=== PATIENT | female | born 1945 | race Caucasian/White ===

== ENCOUNTER 2018-07-28 14:51 | Emergency (ER) | payer MEDICARE, OTHER, SELFPAY ==
[2018-07-28] VITALS (10 sets, daily range): BP systolic 136–173; BP diastolic 57–84; PULSE 67–69; RESP 18; TEMP 36.7; O2SAT 94–100
--- NOTE | 2018-07-28 15:03 | NUR.NOTE ---
Nursing Note: EKG given to MD Mosquera
--- NOTE | 2018-07-28 15:11 | ED.GENADUL_ITS ---
Discharge Plan Disposition Patient Disposition: HOME Condition: Improving Discharge Details Chief Complaint: Chest Pain Clinical Impression: Gastritis Primary Care Provider: Palma Altman ED Provider: Riaz Mosquera Home Meds and New Rx's Prescriptions: New famotidine 20 mg tablet 20 mg PO BID 14 Days Qty: 28 RF: 0 Continued acetaminophen 500 MG tablet 3 tab PO PRN RF: 0 cholecalciferol (vitamin D3) [Vitamin D3] 400 UNIT capsule 1 tab PO DAILY RF: 0 acetaminophen [Arthritis Pain Relief (acetam)] 650 MG tablet 2 tab PO BID RF: 0 famotidine 20 MG tablet 20 mg PO BID Qty: 180 RF: 3 Discharge Instructions Instructions: Gastritis (ED) Additional Instructions: Please take famotidine 20 mg twice daily for the next 5 days. Then may resume once daily at bedtime. [place] diet. Return if you develop chest pain, difficulty breathing, or any other acute concerns. Please follow-up with Dr. Altman for recheck if not improving Medical Decision Making 73-year-old female states that she had the abrupt onset 2 to 3 hours ago of substernal burning discomfort similar to previous. She took 2 Pepcid's and by the time of presentation the ER has had complete resolution of her symptoms. She denies associated shortness of breath or vomiting. She has recently been well. No clear inciting foods but occurred after eating. She is slightly hypertensive but afebrile and with normal pulse and oxygenation. She does not demonstrate any significant abnormalities on exam. Her EKG is unchanged from previous. Screening laboratories obtained and are reassuring. Negative troponin. Her LFTs are unremarkable. Patient remains improved. I will have her continue Pepcid. This does seem most consistent with gastritis. She is stable for discharge Medical Records Medical records reviewed: Yes I reviewed the patient's medical records. Lab Data Lab results reviewed: Yes I reviewed the patient's lab results. Laboratory Results - last 24 hr 07/28/18 07/28/18 15:36 15:36 WBC 7.79 RBC 4.59 Hgb 14.3 Hct 42.1 MCV 91.7 MCH 31.2 MCHC 34.0 RDW 13.7 Plt Count 293 MPV 9.0 Immature Gran % 0.3 Neutrophils % 53.8 Lymphocytes % 38.0 Monocytes % 4.7 Eosinophils % 3.1 Basophils % 0.1 Absolute Neutrophils 4.19 Absolute Lymphocytes 2.96 Absolute Monocytes 0.37 Absolute Eosinophils 0.24 Absolute Basophils 0.01 Sodium 139 Potassium 3.7 Chloride 104 Carbon Dioxide 22.5 Anion Gap 12.5 H BUN 19 H Creatinine 0.80 Estimated GFR/1.73 m2 >= 60.00 Glucose 177 H Calcium 9.4 Total Bilirubin 0.6 AST 67 H ALT 50 Alkaline Phosphatase 77 Troponin I < 0.02 Total Protein 6.7 Albumin 3.5 ECG Data Attestation: I personally reviewed and interpreted this ECG (s) as follows: Interpretation: Normal sinus rhythm with a rate of 72, QRS is narrow, there is ST segment flattening present in the inferior leads that is similar to previous of May 03, 2007 HPI General Mode of arrival: ambulatory . Date/Time Provider Initiated Documentation: 07/28/18 15:00 . Limitations to Documentation: no limitations . Information obtained by: patient and family . History of Present Illness 73 year old F presents to the emergency department with the chief complaint of Epigastric burning pain, similar to previous, resolved , described as moderate and similar to prior episodes, and is localized to the abdomen. Patient reports radiation to back. Patient started experiencing this hour(s) and it has been now resolved. No relieving factors improve symptom(s), No exacerbating factors reported . Patient notes no other symptoms.. Patient did receive the following treatments prior to arrival, other (famotidine) Related Data Home Medications Medication Instructions Recorded Confirmed acetaminophen 3 tab PO PRN 09/12/12 05/02/17 cholecalciferol (vitamin D3) 1 tab PO DAILY 09/12/12 05/02/17 [Vitamin D3] acetaminophen [Arthritis Pain 2 tab PO BID 05/04/17 Relief (acetam)] famotidine 20 mg PO BID #180 tab 05/04/17 famotidine 20 mg PO BID 14 Days #28 tab 07/28/18 Previous Rx's Medication Instructions Recorded famotidine 20 mg PO BID #180 tab 05/04/17 famotidine 20 mg PO BID 14 Days #28 tab 07/28/18 Allergies Allergy/AdvReac Type Severity Reaction Status Date / Time aspirin AdvReac Intermediate Nausea Unverified 05/04/17 13:14 General Stated Complaint: Chest Pain DONNELL: 3 Review of Systems Review of Systems 6 systems reviewed and otherwise negative. PFSH Social History Smoking/Tobacco Use Status: Never Alcohol Intake: never Drug use: Never Substance use type: does not use Do you feel safe in your relationship?: Yes Exam Narrative Exam Narrative: GEN: awake, alert, oriented 3. Pleasant, well groomed, i nteractive. HEAD: Normocephalic, atraumatic ENT: Mucous membranes moist, oropharynx unremarkable, External ear exam unremarkable EYES: PERRL, EOMI NECK: Full ROM, no ZONIA, no menigismus CHEST/RESP: Nontender, clear to auscultation bilateral, no wheeze/rhonchi/rales CARDIOVASCULAR: RRR, no murmur, rub maxi. 2+ Rad pulse bilateral ABDOMEN: Soft, nontender, no mass. +Bowel sounds EXT: Full ROM, no edema, no rash Neuro: Grossly normal neurologic exam, conversant, interactive. Psych: Speech fluent, thoughts congruent, affect normal Course Vital Signs Temperature 36.7 C 07/28/18 15:03 Pulse 67 07/28/18 15:03 Respiratory Rate 18 07/28/18 15:03 Blood Pressure 173/84 H 07/28/18 15:03 Pulse Oximetry 100 07/28/18 15:03 Temperature 36.7 C 07/28/18 15:03 Temperature Source Temporal Artery Scan 07/28/18 15:03 Pulse 67 07/28/18 15:03 Respiratory Rate 18 07/28/18 15:03 Respiratory Effort Non-Labored 07/28/18 15:06 Respiratory Depth Normal 07/28/18 15:06 Respiratory Pattern Normal 07/28/18 15:06 Blood Pressure 173/84 H 07/28/18 15:03 Blood Pressure Position Supine 07/28/18 15:03 Pulse Oximetry 100 07/28/18 15:03 Oxygen Delivery Method Room Air 07/28/18 15:03 Oxygen Flow Rate 0 07/28/18 15:03
[2018-07-28 15:48] LABS: Abs Immature Grans 0.02 k/cumm (0.0-0.09); Absolute Basophil Count 0.01 k/cumm (0.0-0.2); Absolute Eosinophil Count 0.24 k/cumm (0.0-0.7); Absolute Lymphocyte Count 2.96 k/cumm (1.2-3.4); Absolute Monocyte Count 0.37 k/cumm (0.11-0.7); Absolute Neutrophil Count 4.19 k/cumm (1.2-6.7); Basophils % 0.1; Eosinophils % 3.1; HCT 42.1 % (36.0-46.0); HGB 14.3 g/dL (12.0-15.5); Immature Grans % 0.3; Mean Corpuscular Hemoglobin 31.2 pg (27.0-33.0); Mean Corpuscular Volume 91.7 fL (80-95); Monocytes % 4.7; Neutrophils % 53.8; Platelet Count 293 x1000/uL (130-400); RBC 4.59 m/cumm (4.00-5.20); RBC Distribution Width 13.7 % (11.7-14.6); White Blood Cell Count 7.79 k/cumm (4.4-10.8)
[2018-07-28 16:17] LABS: ALT 50 U/L (12-78); AST 67 U/L (15-37); Albumin 3.5 g/dL (3.4-5.0); Alkaline Phosphatase 77 U/L (46-116); Anion Gap 12.5 mmol/L (3-11); BUN 19 mg/dL (7-18); Bilirubin, Total 0.6 mg/dL (0.2-1.0); CO2 22.5 mmol/L (21.0-32.0); Calcium 9.4 mg/dL (8.5-10.1); Chloride 104 mmol/L (98-107); Glucose 177 mg/dL (70-100); Potassium 3.7 mmol/L (3.5-5.1); Sodium 139 mmol/L (136-145); Total Protein 6.7 g/dL (6.4-8.2)
[2018-07-28 16:18] LABS: Troponin I < 0.02 ng/mL (0.00-0.06)
== END 2018-07-28 16:30 | disposition home or self-care (01) ==
PROVIDERS: Emergency Provider Emergency Medicine; PCP Family Medicine
DX: K29.00 Acute gastritis without bleeding (principal); I10 Essential (primary) hypertension
CPT/HCPCS: 36415; 80053; 93005; 99284; 84484; 85025; 93010

== ENCOUNTER 2018-12-08 19:47 | Emergency (ER) | payer MEDICARE, OTHER, SELFPAY ==
[2018-12-08 19:50] VITALS: BP 158/106; PULSE 86; RESP 25; TEMP 37.1; O2SAT 96
[2018-12-08 19:53] VITALS: RESP 26
--- NOTE | 2018-12-08 19:58 | ED.GENADUL_ITS ---
Discharge Plan Disposition Patient Disposition: HOME Condition: Good Discharge Details Chief Complaint: Chest Pain Clinical Impression: Acid reflux, Chest pain Primary Care Provider: April Savage ED Provider: French Velázquez Home Meds and New Rx's Prescriptions: New sucralfate [Carafate] 1 gram tablet 1 gm PO QACHS Qty: 90 RF: 0 No Action famotidine 20 mg tablet 20 mg PO QHS Qty: 30 RF: 6 nystatin 100,000 unit/gram powder 1 applic TP TID Qty: 60 RF: 0 acetaminophen [Arthritis Pain Relief (acetam)] 650 MG tablet 2 tab PO BID RF: 0 nystatin 100,000 unit/gram cream 1 applic TP TID Qty: 30 RF: 0 Discharge Instructions Instructions: Chest Pain (ED), Gastroesophageal Reflux Disease (ED) Additional Instructions: At this time your symptoms seem to be related to her reflux. However there is always a concern that this may be secondary to your heart. Although this is unlikely after initial lab test, you are leaving prior to her recommended repeat testing. If at any point you feel return of your symptoms or you would like reassessment, please return immediately for the labs and reassessment. Please avoid any spicy foods, tomato-based products, or mint-based products. Please take the Carafate in addition to your other home medications. If you notice any worsening of your symptoms, or any new symptoms such as vomiting, diarrhea, fever, chills, shortness of breath, chest pain, numbness, weakness, or fainting , please return immediately to the emergency department for reevaluation. Please follow up with your primary care provider as soon as possible for reassessment and reevaluation. As always, it was a pleasure participating in your medical care today. Referrals: April Savage, TAKE OUT WAITER/WAITRESS [Primary Care Provider] - Medical Decision Making This is a 73-year-old female with past medical history of arthritis and past history of notable reflux and stomach ulcer in the past, who presents today for evaluation of right upper quadrant epigastric pain described as a burning sensation. It occurred after he eating steak and vegetable dinner. She states that it is identical to the previous episodes of gastric pain that she has had in the past. She denies a history of cardiac disease. She is a non- smoker. EKG shows no abnormalities. She denies any history of concerning red flags for dissection, risk factors for PE. Physical exam is notably unremarkable. EKG benign. This time will treat for reflux, however due to her age evaluate for potential unlikely cardiac etiology. 9 PM On reassessment patient is 100% asymptomatic at this time. She feels much better after the reflux medication she received. She states that her pain is completely gone which is prior for the course for her normal reflux. However because of her age and risk factors I did discuss with her serial troponins as this is my recommendation for continued testing, including potential additional imaging testing. This time she states that she does not want anything else. She does not want to repeat troponins, imaging or medication. She states that she would like to go home. We had a long discussion regarding the risks and benefits of this, including the ability to miss a life-threatening etiology and potential and permanent disability. Patient understands this. Although her testing is not complete, she certainly does seem to be clinically consistent with reflux and stomach ulcer rather than a cardiac etiology. Respecting her wishes the patient will be discharged home. We will add Carafate to her daily medication. I have extensively reviewed the treatment plan and discharge instructions with the patient and their family. I have addressed all patient concerns at this time. The patient and family was made aware of what symptoms to monitor for that would warrant a return to the emergency department. Discussed the plan with the patient and family, they demonstrate verbal understanding and agreement with our assessment and plan at this time. EKG 19: 54 Rate 81, intervals normal, no significant ST elevations or depressions, there is an inverted T wave in V1. Small Q wave in lead III. No evidence of STEMI. EKG from 07/28/2018 demonstrates identical findings, no other significant abnormalities or acute changes. FINDINGS: Lungs: Lungs are adequately inflated and symmetric. No focal consolidation or pulmonary edema. Pleural space: No pleural effusion. No pneumothorax. Heart/Mediastinum: Cardiomediastinal contours within normal limits. Vasculature: Vascular calcifications of the aortic arch with very mild tortuosity of the thoracic aorta. Bones/joints: Mild multilevel thoracic spondylosis. No acute osseous findings. Soft tissues: No focal soft tissue abnormailty. IMPRESSION: No acute cardiopulmonary finding. Thank you for allowing us to participate in the care of your patient. Dictated and Authenticated by: William Moore MD 12/08/2018 8:29 PM Eastern Time ([place] & [place]) HPI General Date/Time Provider Initiated Documentation: 12/08/18 19:50 . HPI Narrative: This is a 73-year-old female with a past medical history of notable stomach ulcer and previous gastric pain, as well as arthritis no other medical problems who presents today for evaluation of right upper quadrant abdominal pain/epigastric pain. Patient states that began not long after dinner. They had steak and vegetables for dinner. She denies eating anything spicy. She states that it is a burning sensation that goes from the right slightly the right shoulder. She denies any chest heaviness, chest tightness, shortness of breath. She states that this burning sensation is classic for her and like her previous episodes of reflux in the past. She was unable to take any antacids or reflux medications at home as this classic other complaints. Ally makes her symptoms worse. She denies any history of [place] or previous cardiac issue. She has no other complaints at this time. She denies any tobacco abuse, family history significant cardiac disease, or other complaints. She denies any tear ing or ripping sensation in her chest. She denies any history of PE, dissection or aneurysm. Related Data Home Medications Medication Instructions Recorded Confirmed acetaminophen [Arthritis Pain 2 tab PO BID 05/04/17 12/08/18 Relief (acetam)] famotidine 20 mg tablet 20 mg PO QHS #30 tab 10/25/18 12/08/18 nystatin 100,000 unit/gram topical 1 applic TP TID #60 gm 10/25/18 12/08/18 powder nystatin 100,000 unit/gram topical 1 applic TP TID #30 gm 11/08/18 12/08/18 cream sucralfate [Carafate] 1 gm PO QACHS #90 tab 12/08/18 Previous Rx's Medication Instructions Recorded famotidine 20 mg tablet 20 mg PO QHS #30 tab 10/25/18 nystatin 100,000 unit/gram topical 1 applic TP TID #60 gm 10/25/18 powder nystatin 100,000 unit/gram topical 1 applic TP TID #30 gm 11/08/18 cream sucralfate [Carafate] 1 gm PO QACHS #90 tab 12/08/18 Allergies Allergy/AdvReac Type Severity Reaction Status Date / Time aspirin AdvReac Intermediate Nausea Unverified 10/25/18 15:23 General Stated Complaint: Chest Pain DONNELL: 2 Review of Systems All systems reviewed & are unremarkable except as noted in HPI and below [facility] Social History Smoking/Tobacco Use Status: Never Alcohol Intake: never Drug use: Never Substance use type: does not use Do you feel safe in your relationship?: Yes Exam Narrative Exam Narrative: 1.Const: Well-nourished, Well-developed, appearing stated age 2.Eyes: PERRL, no conjunctival injection, and symmetrical lids. 3.ENT: Atraumatic external nose and ears. Moist MM. Neck: Symmetric, trachea midline, No thyromegaly. 4.CVS: +S1/S2, No murmurs or gallops. Peripheral pulses 2+ and equal in all extremities. Brisk capillary refill in all extremities. Pulses are equal bilaterally. 5.RESP: Unlabored respiratory effort. Clear to auscultation bilaterally. No wheezes rales or rhonchi 6.GI: Soft, Nontender/Nondistended, No hepatosplenomegaly. No guarding or rebound. No pain at McBurney's point, negative Cosby sign. No evidence of significant reproducible epigastric tenderness. 7.MSK: Normocephalic/Atraumatic, Extremities w/o deformity or ttp No cyanosis or clubbing, Normal movement of all extremities 8.Skin: Warm, Dry. No rashes or lesions. 9.Neuro: [employer] II-XII grossly intact. Sensation grossly intact, no focal neurologic deficits. 10.Psych: (AAO) x3. Appropriate mood and affect Course Vital Signs Vital signs: Vital Signs Temperature 37.1 C 12/08/18 19:50 Pulse 86 12/08/18 19:50 Respiratory Rate 25 H 12/08/18 19:50 Blood Pressure 158/106 H 12/08/18 19:50 Pulse Oximetry 96 12/08/18 19:50 Temperature 37.1 C 12/08/18 19:50 Temperature Source Skin 12/08/18 19:50 Pulse 86 12/08/18 19:50 Respiratory Rate 26 H 12/08/18 19:53 Respiratory Effort 12/08/18 19:53 Respiratory Depth Normal 12/08/18 19:53 Respiratory Pattern Normal 12/08/18 19:53 Blood Pressure 158/106 H 12/08/18 19:50 Blood Pressure Position Supine 12/08/18 19:50 Pulse Oximetry 96 12/08/18 19:50 Oxygen Delivery Method Room Air 12/08/18 19:50 Oxygen Flow Rate 0 12/08/18 19:50 Pain Level 8 12/08/18 19:50 Comment 12/08/18 19:50
[2018-12-08 20:08] LABS: Abs Immature Grans 0.02 k/cumm (0.0-0.09); Absolute Basophil Count 0.03 k/cumm (0.0-0.2); Absolute Lymphocyte Count 4.21 k/cumm (1.2-3.4); Absolute Neutrophil Count 3.37 k/cumm (1.2-6.7); Basophils % 0.3; Eosinophils % 3.5; HCT 43.6 % (36.0-46.0); HGB 14.7 g/dL (12.0-15.5); Immature Grans % 0.2; Lymphocytes % 48.8; Mean Corp. HGB Concentration 33.7 g/dL (32.0-36.0); Mean Corpuscular Hemoglobin 31.4 pg (27.0-33.0); Mean Corpuscular Volume 93.2 fL (80-95); Monocytes % 8.1; Neutrophils % 39.1; Platelet Count 342 x1000/uL (130-400); RBC 4.68 m/cumm (4.00-5.20); RBC Distribution Width 13.5 % (11.7-14.6); White Blood Cell Count 8.63 k/cumm (4.4-10.8)
[2018-12-08] MEDS: Sucralfate 1 GM TAB PO (20:09)
[2018-12-08] MEDS: Pantoprazole 40 MG VIAL IVP (20:09)
[2018-12-08] MEDS: Normal Saline 500 ML IV (20:10)
[2018-12-08 20:20] LABS: PTT Activated 23.5 sec (21.0-31.4); Prothrombin Time 10.2 sec (9.3-11.0)
[2018-12-08 20:23] LABS: ALT 30 U/L (14-59); AST 28 U/L (15-37); Albumin 3.8 g/dL (3.4-5.0); Alkaline Phosphatase 75 U/L (46-116); BUN 18 mg/dL (7-18); Bilirubin, Total 0.6 mg/dL (0.2-1.0); CREATININE 0.96 mg/dL (0.55-1.02); Calcium 9.4 mg/dL (8.5-10.1); Chloride 105 mmol/L (98-107); Estimated GFR 57.13 (mL/min/1.73m2); Glucose 135 mg/dL (70-100); Potassium 4.6 mmol/L (3.5-5.1); Sodium 142 mmol/L (136-145); Total Protein 7.3 g/dL (6.4-8.2)
--- NOTE | 2018-12-08 20:24 | DI.RAD_ITS ---
EXAM: XR PORTABLE CHEST AP CLINICAL HISTORY: burning chest pain TECHNIQUE: COMPARISON: CHEST 2 VIEWS PA,LAT from 05/02/2017 FINDINGS: The heart is not enlarged. Lungs are clear and well expanded. IMPRESSION: No evidence of acute process.
--- NOTE | 2018-12-08 20:30 | DI.VRAD_ITS ---
PROCEDURE INFORMATION: Exam: XR Chest, 1 View Exam date and time: 12/08/2018 8:20 PM Clinical history: 73 years old, female; Other: Burning chest pain TECHNIQUE: Imaging protocol: XR of the chest Views: 1 view. COMPARISON: CR CHEST 2 VIEWS PA,LAT 05/02/2017 9:02 AM FINDINGS: Lungs: Lungs are adequately inflated and symmetric. No focal consolidation or pulmonary edema. Pleural space: No pleural effusion. No pneumothorax. Heart/Mediastinum: Cardiomediastinal contours within normal limits. Vasculature: Vascular calcifications of the aortic arch with very mild tortuosity of the thoracic aorta. Bones/joints: Mild multilevel thoracic spondylosis. No acute osseous findings. Soft tissues: No focal soft tissue abnormailty. IMPRESSION: No acute cardiopulmonary finding. Dictated and Authenticated by: William Moore MD. Ordering:JASON Braswell MD
--- NOTE | 2018-12-08 20:30 | NUR.NOTE ---
Pt states she is unable to tolerate GI cocktail. reports pain free after carafate and protonix.
[2018-12-08 20:33] LABS: Troponin I < 0.05 ng/mL (0.00-0.06)
[2018-12-08 21:06] VITALS: BP 160/74; PULSE 64; RESP 18; O2SAT 96
--- NOTE | 2018-12-08 21:19 | NUR.NOTE ---
IV removed. discharge instructions reviewed with verbal understanding. Aware to f/u with pcp as needed. Carafate script given. Ambulated to exit with steady gait.
== END 2018-12-08 21:15 | disposition home or self-care (01) ==
PROVIDERS: Emergency Provider Student in an Organized Health Care Education/Training Program
DX: K21.9 Gastro-esophageal reflux disease without esophagitis (principal); R07.9 Chest pain, unspecified
CPT/HCPCS: 36415; 80053; 93005; 96361; 96374; 99285; 71045; 84484; 85025; 85610; 85730; 93010

== ENCOUNTER 2019-02-21 09:06 | Outpatient (CLI) | payer MEDICARE, OTHER, SELFPAY ==
[2019-02-21 14:38] LABS: Hemoglobin A1C 6.1 % (3.8-5.6)
== END 2019-02-21 09:26 ==
PROVIDERS: PCP Nurse Practitioner; Visit Provider Nurse Practitioner
DX: R73.02 Impaired glucose tolerance (oral) (principal)
CPT/HCPCS: 36415; 83036

== ENCOUNTER 2019-08-29 10:31 | Outpatient (CLI) | payer MEDICARE, OTHER, SELFPAY ==
[2019-08-29 12:56] LABS: CREATININE 0.68 mg/dL (0.55-1.02); Hemoglobin A1C 5.8 % (3.8-5.6); Potassium 4.7 mmol/L (3.5-5.1)
[2019-08-29 13:09] LABS: Calculated LDL 144 mg/dL (<100); Cholesterol 223 mg/dL (<200); HDL Cholesterol 46 mg/dL (40-60); Triglyceride 165 mg/dL (<150)
== END 2019-08-29 10:51 ==
PROVIDERS: PCP Nurse Practitioner; Visit Provider Nurse Practitioner
DX: I10 Essential (primary) hypertension (principal); R73.02 Impaired glucose tolerance (oral)
CPT/HCPCS: 36415; 80061; 82565; 83036; 84132

== ENCOUNTER 2020-09-05 03:14 | Outpatient (CLI) | payer OTHER, SELFPAY ==
[2020-09-05 13:03] LABS: Hemoglobin A1C 5.8 % (<5.7)
[2020-09-05 13:06] LABS: CREATININE 0.6 mg/dL (0.55-1.02); Calculated LDL 61 mg/dL (<100); Cholesterol 138 mg/dL (<200); HDL Cholesterol 55 mg/dL (40-60); Potassium 4.1 mmol/L (3.5-5.1); Triglyceride 113 mg/dL (<150)
== END 2020-09-05 03:15 | disposition home or self-care (01) ==
LOC: LOS 03:14
PROVIDERS: PCP Nurse Practitioner; Visit Provider Nurse Practitioner
DX: I10 Essential (primary) hypertension (principal); E11.9 Type 2 diabetes mellitus without complications
CPT/HCPCS: 36415; 80061; 82565; 83036; 84132

== ENCOUNTER → 2020-09-23 09:29 | Outpatient (BNVA) | payer OTHER, SELFPAY | PROVIDERS: PCP Nurse Practitioner; Referring Provider Nurse Practitioner; Visit Provider Surgery | DX: L98.8 Other specified disorders of the skin and subcutaneous tissue (principal); L72.3 Sebaceous cyst | CPT/HCPCS: 99213 ==

== ENCOUNTER 2020-10-01 08:32 | Day surgery (SDC) | payer OTHER, SELFPAY ==
[2020-10-01 08:35] VITALS: BP 129/69; PULSE 60; RESP 16; TEMP 36.3; O2SAT 99
--- NOTE | 2020-10-01 11:45 | SKI_PTH ---
PATIENT: BenjaminJuly C LOC: [facility] U#:[id number] AGE/SX: 75/F ROOM: RE10/01/[address]: Luz Blake : 1945 BED: DIS: 10/01/2020 SPEC #: [id number] RECD: 10/01/20 13:26 STATUS: ARMAND COOPER #: [id number] MELECIO: 10/01/20 11:[address]: Luz Blake DEPT: Surgical Specimen RECD BY: Muriel Abreu ENTERED: 10/01/20 13:28 SP TYPE: SHELBIE COFFEY DR: Qing Colunga, PhD CHARGE OUT CLERK Tissues: 1 - SKIN BIOPSY(SHAVE/PUNCH) Procedures: GROSS AND MICRO LEVEL 3 Comments: [id number]
--- NOTE | 2020-10-01 12:22 | W.PM.DSUDISC ---
Discharge Plan Disposition Patient Disposition: HOME Condition: Good Discharge Details Reason For Visit: cyst removal x3 Attending Provider: Luz Blake Primary Care Provider: Qing Colunga Home Meds and New Rx's Prescriptions: No Action Metamucil 3.4 gram/5.4 gram powder 1 tbsp PO DAILY RF: 0 acetaminophen [Arthritis Pain Relief (acetam)] 650 MG tablet 2 tab PO BID RF: 0 atorvastatin 40 mg tablet 40 mg PO QPM Qty: 90 RF: 4 lisinopril 10 mg tablet 10 mg PO DAILY Qty: 90 RF: 4 famotidine 20 mg tablet 20 mg PO QHS Qty: 180 RF: 4 Discharge Instructions Activity:: see above Remove Dressings/Wound Care:: 24 hours Shower/Bathe:: 24 hours Diet:: Normal Diet Discharge Orders Discharge Orders: Discharge Order (Routine); Ordered 10/01/20 Ordered By: Luz Blake DS: Diagnosis Discharge Diagnosis (1) Sebaceous cyst: Status: Acute
--- NOTE | 2020-10-01 12:30 | ROE_ITS ---
Date of service: 10/01/20 Time of Service: 12:30 Operative Note Operative Note DATE OF PROCEDURE: 10/01/20 PRE-OP DIAGNOSIS: leny cyst POST-OP DIAGNOSIS: same PROCEDURE: excision SURGEON: Luz Blake POWER LINEMAN TECHNICIAN: Romi Amin ANESTHESIA TYPE: Local By Surgeon Refer to Anesthesia Record ESTIMATED BLOOD LOSS: 3 PATHOLOGY: other COMPLICATIONS: None Patient was transported to: same day Patient's condition: stable Procedure Description: Patient has x3 sebaceous cyst that she would like removed. There are two that are 2 cm in size, and one of them is 4 cm in size. Patient was marked in preop. Informed consent is obtained explaining risks of the procedure including but not limited to: Bleeding, infection, scarring, reaction to the anesthetics, recurrence, and other unforetold complications, and need to heal by secondary intent. She is brought to the operating room suite and placed supine position. Timeout is performed Each of the lesions is attended to in the same fashion. They are prepped and draped in the usual sterile fashion using a ChloraPrep scrub solution. Each is infiltrated with 10 cc of 1% lidocaine. 1/4 inch incision is made with a #12 blade. The cyst is dissected out in its entirety making sure to remove all of the capsule. They are closed with 3-0 nylon sutures. Patient tolerated procedure well without complication and transferred to recovery room in stable condition.
== END 2020-10-01 12:40 | disposition home or self-care (01) ==
PROVIDERS: PCP Nurse Practitioner; Visit Provider Surgery
PROC: (CPT 21012; principal; 2020-10-01 10:45)
DX: L72.11 Pilar cyst (principal)
CPT/HCPCS: 21012 ×3; 88304; 88305

== ENCOUNTER → 2020-10-11 09:49 | Outpatient (BNVA) | payer OTHER, SELFPAY | PROVIDERS: PCP Nurse Practitioner; Referring Provider Nurse Practitioner; Visit Provider Physical Therapy Assistant | DX: Z48.02 Encounter for removal of sutures (principal) ==

== ENCOUNTER 2021-07-05 13:55 | Emergency (ER) | payer OTHER, SELFPAY ==
[2021-07-05 14:04] VITALS: BP 126/73; PULSE 59; RESP 18; TEMP 36.6; O2SAT 94
--- NOTE | 2021-07-05 14:25 | ED.GENADUL_ITS ---
Discharge Plan Disposition Patient Disposition: HOME Condition: Stable Discharge Details Clinical Impression: Abdominal pain Primary Care Provider: Qing Colunga ED Provider: Mary Toro Home Meds and New Rx's Prescriptions: Continued lisinopril 10 mg tablet 20 mg PO DAILY Metamucil 3.4 gram/5.4 gram powder 1 tbsp PO DAILY Rx Instructions: mix into at least 8 oz of water or juice before administering acetaminophen [Arthritis Pain Relief (acetam)] 650 MG tablet 2 tab PO BID atorvastatin 40 mg tablet 40 mg PO QPM Qty: 90 4RF famotidine 20 mg tablet 20 mg PO QHS Qty: 180 4RF Discharge Instructions Instructions: Abdominal Pain (ED) Additional Instructions: At this time you have declined further work-up including blood work and urinalysis or imaging. I cannot rule out that there is anything more serious going on at this time. You may take 40 mg of Pepcid daily as previously prescribed. [place] diet clear liquids for the next 2 to 3 days and advance as tolerated. Follow up with primary care provider in 3-5 days. Return to ED sooner if any worsening or concerns. Increase oral fluids. Referrals: Qing Colunga, COMPLIANCE PROJECT MANAGER [Primary Care Provider] - 5 days Medical Decision Making 76-year-old female presents to the ER with chief complaint of abdominal pain and nausea vomiting which occurred prior to arrival. She reports this started right after eating breakfast. Upon initial examination it is now resolved. Patient has no plaints of abdominal pain or nausea. She reports she vomited on the way here which resolved the symptoms. She states that she has an ulcer the cause of the symptoms and has had it since she was 17 years old. She normally takes Pepcid which she threw up prior to arrival. On initial examination patient was offered blood work IV nausea medication antacid which she refused. After discussion she does agree to have a Pepcid tablet. She has a past medical history of GERD, hypertension, type 2 diabetes, lipoma of the scalp. Surgical history includes appendectomy. How are informed by nurse staff community health that patient is becoming impatient in his PCP in the waiting room. Discharge instructions written patient received 40 mg of Pepcid prior to discharge. This text was generated using ZPoweration system, please disregard any oddities of phrase or misspellings. HPI General Mode of arrival: ambulatory . Date/Time Provider Initiated Documentation: 07/05/21 14:11 . Limitations to Documentation: no limitations . Information obtained by: patient, family, RN notes reviewed and old records reviewed . HPI Narrative: 76-year-old female presents to the ER with chief complaint of abdominal pain and nausea vomiting which occurred prior to arrival. She reports this started right after eating breakfast. Upon initial examination it is now resolved. Patient has no plaints of abdominal pain or nausea. She reports she vomited on the way here which resolved the symptoms. She states that she has an ulcer the cause of the symptoms and has had it since she was 17 years old. She normally takes Pepcid which she threw up prior to arrival. On initial examination patient was offered blood work IV nausea medication antacid which she refused. After discussion she does agree to have a Pepcid tablet. She has a past medical history of GERD, hypertension, type 2 diabetes, lipoma of the scalp. Surgical history includes appendectomy. Related Data Home Medications Medication Instructions Recorded Confirmed acetaminophen 650 mg 2 tab PO BID 05/04/17 07/05/21 tablet,extended release (Arthritis Pain Relief (acetaminophen) ER) atorvastatin 40 mg tablet 40 mg PO QPM #90 tabs 09/04/20 07/05/21 famotidine 20 mg tablet 20 mg PO QHS #180 tabs 09/05/20 07/05/21 psyllium husk 3.4 gram/5.4 gram 1 tbsp PO DAILY 09/23/20 07/05/21 oral powder (Metamucil) lisinopril 10 mg tablet 20 mg PO DAILY 03/07/21 07/05/21 Previous Rx's Medication Instructions Recorded atorvastatin 40 mg tablet 40 mg PO QPM #90 tabs 09/04/20 famotidine 20 mg tablet 20 mg PO QHS #180 tabs 09/05/20 Allergies Allergy/AdvReac Type Severity Reaction Status Date / Time house dust Allergy Mild Unverified 07/05/21 14:09 weed pollen Allergy Mild Unverified 07/05/21 14:09 aspirin AdvReac Intermediate Nausea Unverified 07/05/21 14:09 tomato AdvReac Mild Skin Rash Verified 07/05/21 14:09 chocolate flavor AdvReac Verified 07/05/21 14:09 Latex, Natural Rubber AdvReac white Verified 07/05/21 14:09 bumps on hands General Stated Complaint: Nausea/Vomit/Diar DONNELL: 3 PFSH All Active Problems (Updated 07/05/21 @ 15:03 by Mary Toro) Abdominal pain (Acute) GERD (gastroesophageal reflux disease) (Chronic) Osteoarthritis (Chronic) HTN (hypertension) (Chronic) Keratolysis exfoliativa (Acute) Type 2 diabetes mellitus (Acute) Lipoma of scalp (Acute) Sebaceous cyst (Acute) Medical History (Updated 07/05/21 @ 15:03 by Mary Toro) Ovarian cyst Stomach ulcer (05/04/17) Family History (Updated 08/30/19 @ 09:38 by Chetna Lacey) Mother No problems noted. Father Asthma Social History (Updated 08/31/20 @ 13:13 by Sharla Martinez) Smoking/Tobacco Use Status: Never Smoking risk assessment performed?: Yes Alcohol Intake: never Drug use: Never Substance use type: does not use Pets and animals: Yes Pets and animals: cat(s) Sexually active: No Do you think of yourself as: straight/heterosexual Current gender identity: female How often do you talk on the phone with friends or family?: three or more times per week How often do you get together with friends or relatives?: decline to answer Do you belong to any clubs or organized social groups?: no Panel score (0-1 are the most socially isolated patients): 1 What type of physical activity do you participate in: none Catina/Jainism: No preference Special catina needs: No Seatbelt use: always Drive intox or ride w/intox route driver salesperson: No Do you feel safe in your relationship?: Yes Exam Narrative Exam Narrative: Constitutional: Alert and oriented x3. Appears stated age. Normal body habitus. Head: Normocephalic, no trauma. Eyes: Pupils PERRL, Red reflex noted, EOM's intact. Eyelids symmetrical without lesions, discharge, or swelling. ENT: Bilateral TM's WNL, External ear normal to inspection, no mastoid TTP, swelling, or erythema, Nasal turbinates WNL, no nasal discharge. Normal dentition, Posterior pharynx WNL, no exudate. Chest: RRR, Normal S1, S2, distal pulses intact. Resp: Lungs clear to auscultation bilaterally, no wheezes, rales, or rhonchi. Abdomen: Soft, non-distended, Normoactive bowel sounds all 4 quads. Musculoskeletal: Normal gait, 5/5 strength to all four extremities. Skin: No suspicious rashes or lesions. Capillary refill less than 2 sec. Neurologic: Cranial nerves II-XII intact. Alert and oriented x 3. Motor: No deficits noted. Sensory: Intact bilaterally all 4 extremities. Reflexes: DTR's intact bilaterally.. Hematologic/Lymphatic: No ecchymosis, no lymphadenopathy. Course Vital Signs Vital signs: Vital Signs Temperature 36.6 C 07/05/21 14:04 Pulse 59 L 07/05/21 14:04 Respiratory Rate 18 07/05/21 14:04 Blood Pressure 126/73 07/05/21 14:04 Pulse Oximetry 94 07/05/21 14:04 Temperature 36.6 C 07/05/21 14:04 Temperature Source Tympanic 07/05/21 14:04 Pulse 59 L 07/05/21 14:04 Respiratory Rate 18 07/05/21 14:04 Blood Pressure 126/73 07/05/21 14:04 Blood Pressure Position Sitting 07/05/21 14:04 Pulse Oximetry 94 07/05/21 14:04 Oxygen Delivery Method Room Air 07/05/21 14:04 Oxygen Flow Rate 0 07/05/21 14:04 Pain Level 0 07/05/21 14:04 Lab/Test Results Lab/Test Results: Laboratory Tests Range/Units 07/05/21 07/05/21 07/05/21 14:14 14:15 14:15 WBC Cancelled RBC Cancelled Hgb Cancelled Hct Cancelled MCV Cancelled MCH Cancelled MCHC Cancelled RDW Cancelled Plt Count Cancelled MPV Cancelled Immature Gran % Cancelled Neutrophils % Cancelled Band Neutrophils % Cancelled Lymphocytes % Cancelled Atypical Lymphs % Cancelled Monocytes % Cancelled Eosinophils % Cancelled Basophils % Cancelled Metamyelocytes % Cancelled Myelocytes % Cancelled Promyelocytes % Cancelled Other Cells % Cancelled Nucleated RBC % Cancelled Absolute Neutrophils Cancelled Absolute Lymphocytes Cancelled Absolute Monocytes Cancelled Absolute Eosinophils Cancelled Absolute Basophils Cancelled RBC Morphology Cancelled Polychromasia Cancelled Hypochromasia Cancelled Poikilocytosis Cancelled Basophilic Stippling Cancelled Anisocytosis Cancelled Microcytosis Cancelled Macrocytosis Cancelled Spherocytes Cancelled Tear Drop Cells Cancelled Ovalocytes Cancelled Stomatocytes Cancelled [place] Bodies Cancelled Ethan Cells/Echinocytes Cancelled Acanthocytes (Spur) Cancelled Schistocytes Cancelled Sodium Cancelled Potassium Cancelled Chloride Cancelled Carbon Dioxide Cancelled Anion Gap Cancelled BUN Cancelled Creatinine Cancelled Estimated GFR/1.73 m2 Cancelled Glucose Cancelled Calcium Cancelled Magnesium Cancelled Total Bilirubin Cancelled AST Cancelled ALT Cancelled Alkaline Phosphatase Cancelled Total Protein Cancelled Albumin Cancelled
[2021-07-05] MEDS: Famotidine 20 MG TAB 40 MG PO (15:04)
[2021-07-05 15:05] VITALS: BP 126/75; PULSE 90; TEMP 36.8; O2SAT 94
== END 2021-07-05 15:32 | disposition home or self-care (01) ==
PROVIDERS: Emergency Provider Registered Nurse Emergency; PCP Nurse Practitioner
DX: R10.9 Unspecified abdominal pain (principal); R11.2 Nausea with vomiting, unspecified
CPT/HCPCS: 80053; 83690; 99283; 83735; 85025

== ENCOUNTER 2021-07-05 19:14 | Emergency (ER) | payer OTHER, SELFPAY ==
[2021-07-05 19:22] VITALS: BP 142/72; PULSE 74; RESP 18; TEMP 36.5; O2SAT 96
--- NOTE | 2021-07-05 20:00 | RT.EKG_ITS ---
APPROVED REPORT Exam: Resting ECG Reason for Exam: epigastric pain Patient Location: E HR:61 bpm ECG Measurements Heart Rate 61 AXIS UT 192 P 68 QRSd 74 QRS 8 QT 396 T 23 QTc 398 Conclusion Sinus rhythm...normal P axis, V-rate 60- 99 Physician: no stemi, inverted t wave in V1. no significant st elevation or depressions. no changes fr om prior ekg on 12/08/18
[2021-07-05] MEDS: Ondansetron O.D.T. 4 MG TABEF, 3 TABS/BTL PO (20:13)
[2021-07-05] MEDS: Sucralfate 1 GM TAB 2 GM PO (20:13)
--- NOTE | 2021-07-05 20:31 | W.ED.GENAD ---
Discharge Plan Disposition Patient Disposition: HOME Condition: Good Discharge Details Clinical Impression: Burning reflux Primary Care Provider: Qing Colunga ED Provider: French Velázquez Home Meds and New Rx's Prescriptions: New sucralfate [Carafate] 1 gram tablet 1 g PO BID Qty: 60 0RF Continued lisinopril 10 mg tablet 20 mg PO DAILY Metamucil 3.4 gram/5.4 gram powder 1 tbsp PO DAILY Rx Instructions: mix into at least 8 oz of water or juice before administering acetaminophen [Arthritis Pain Relief (acetam)] 650 MG tablet 2 tab PO BID atorvastatin 40 mg tablet 40 mg PO QPM Qty: 90 4RF famotidine 20 mg tablet 20 mg PO QHS Qty: 180 4RF Discharge Instructions Instructions: Peptic Ulcer (ED) Additional Instructions: At this time your symptoms appear consistent with an ulcer. Please take your Prilosec twice daily for the next 4 to 5 days. Please take the Carafate as directed. The prescription has been sent to your pharmacy on file. Avoid any greasy foods, spicy foods, tomato-based products, or citrus-based products. Stick with a bland diet of rice, bananas, crackers, and water. If you notice any worsening of your symptoms, or any new symptoms such as vomiting, diarrhea, fever, chills, shortness of breath, chest pain, numbness, weakness, or fainting , please return immediately to the emergency department for reevaluation. Please follow up with your primary care provider as soon as possible for reassessment and reevaluation. As always, it was a pleasure participating in your medical care today. Referrals: Qing Colunga, DRIVE THRU ORDER TAKER [Primary Care Provider] - Medical Decision Making 76-year-old female with a past medical history of GERD, reflux, type 2 diabetes, hypertension, presents today for evaluation of a stomach ulcer. Patient was here earlier today, and she states that this morning her symptoms started around breakfast time, she states I have had this ulcer since I was a teenager. This is the exact same thing as I have always had. She states that after breakfast this morning she had an episode of achiness, and then this persisted throughout the day. She came to the ER but on the way here she had an episode of vomiting which completely resolved the pain. She refused the initial work-up on her visit here before, and eventually left. Throughout the day she was doing fine until later in the evening when she had [place] fried chicken, mashed potatoes and coleslaw she again developed achiness in her stomach, and came to the ER again, similar to the previous episode she had an episode of vomiting just prior to arrival and her pain completely resolved after the vomiting. Currently she states she feels fine. She is refusing to see a nurse practitioner or PA. She is requesting to see a physician. Past surgical history is positive for an appendectomy. She denies any other complaints at this time. She denies any hematemesis, chest heaviness, chest tightness, arm neck or shoulder pain, exertional dyspnea, exertional chest pain, back pain. She denies any history of heart disease. She denies any tobacco abuse. No other complaints at this time. No other modifying factors. She denies any recent spicy foods, increase in NSAID use, or tomato-based products. Physical exam demonstrates no evidence of abdominal pain epigastric pain or other abnormalities. Patient looks very well. Patient does not want any labs or imaging at this time. She is quite clear and unequivocal about that. She did allow for an EKG, EKG shows no evidence of STEMI, significant ST changes, or other abnormalities. Patient remains totally asymptomatic. Symptoms appear clinically inconsistent with ACS. Patient feels well and is requesting discharge. Will give Zofran for home use, Carafate, and recommend that she continues to take her Prilosec twice daily. I did recommend to her further evaluation work-up if her symptoms persist, and she was in agreement with this, but again makes very clear that she does not want anything additional at this time. Weighing the risks and benefits and understanding these risks and benefits the patient would still like to be discharged. I have extensively reviewed the treatment plan and discharge instructions with the patient. I have addressed all patient concerns at this time. The patient was made aware of what symptoms to monitor for that would warrant a return to the emergency department. Discussed the plan with the patient, they demonstrate verbal understanding and agreement with our assessment and plan at this time. The documentation in this chart was dictated using [employer] dictation software. Please excuse any dictation errors. EKG: no stemi, inverted t wave in V1. no significant st elevation or depressions. no changes from prior ekg on 12/08/18 HPI General Date/Time Provider Initiated Documentation: 07/05/21 19:14. HPI Narrative: 76-year-old female with a past medical history of GERD, reflux, type 2 diabetes, hypertension, presents today for evaluation of a stomach ulcer. Patient was here earlier today, and she states that this morning her symptoms started around breakfast time, she states I have had this ulcer since I was a teenager. This is the exact same thing as I have always had. She states that after breakfast this morning she had an episode of achiness, and then this persisted throughout the day. She came to the ER but on the way here she had an episode of vomiting which completely resolved the pain. She refused the initial work-up on her visit here before, and eventually left. Throughout the day she was doing fine until later in the evening when she had [place] fried chicken, mashed potatoes and coleslaw she again developed achiness in her stomach, and came to the ER again, similar to the previous episode she had an episode of vomiting just prior to arrival and her pain completely resolved after the vomiting. Currently she states she feels fine. She is refusing to see a nurse practitioner or PA. She is requesting to see a physician. Past surgical history is positive for an appendectomy. She denies any other complaints at this time. She denies any hematemesis, chest heaviness, chest tightness, arm neck or shoulder pain, exertional dyspnea, exertional chest pain, back pain. She denies any history of heart disease. She denies any tobacco abuse. No other complaints at this time. No other modifying factors. She denies any recent spicy foods, increase in NSAID use, or tomato-based products. Related Data Home Medications Medication Instructions Recorded Confirmed acetaminophen 650 mg 2 tab PO BID 05/04/17 07/05/21 tablet,extended release (Arthritis Pain Relief (acetaminophen) ER) atorvastatin 40 mg tablet 40 mg PO QPM #90 tabs 09/04/20 07/05/21 famotidine 20 mg tablet 20 mg PO QHS #180 tabs 09/05/20 07/05/21 psyllium husk 3.4 gram/5.4 gram 1 tbsp PO DAILY 09/23/20 07/05/21 oral powder (Metamucil) lisinopril 10 mg tablet 20 mg PO DAILY 03/07/21 07/05/21 sucralfate 1 gram tablet (Carafate) 1 g PO BID #60 tabs 07/05/21 Previous Rx's Medication Instructions Recorded atorvastatin 40 mg tablet 40 mg PO QPM #90 tabs 09/04/20 famotidine 20 mg tablet 20 mg PO QHS #180 tabs 09/05/20 sucralfate 1 gram tablet (Carafate) 1 g PO BID #60 tabs 07/05/21 Allergies Allergy/AdvReac Type Severity Reaction Status Date / Time house dust Allergy Mild Unverified 07/05/21 19:28 weed pollen Allergy Mild Unverified 07/05/21 19:28 aspirin AdvReac Intermediate Nausea Unverified 07/05/21 19:28 tomato AdvReac Mild Skin Rash Verified 07/05/21 19:28 chocolate flavor AdvReac Verified 07/05/21 19:28 Latex, Natural Rubber AdvReac white Verified 07/05/21 19:28 bumps on hands General Stated Complaint: Abd Prob DONNELL: 4 Review of Systems All systems reviewed & are unremarkable except as noted in HPI and below PFSH All Active Problems Abdominal pain (Acute) Burning reflux (Acute) GERD (gastroesophageal reflux disease) (Chronic) Osteoarthritis (Chronic) HTN (hypertension) (Chronic) Keratolysis exfoliativa (Acute) Type 2 diabetes mellitus (Acute) Lipoma of scalp (Acute) Sebaceous cyst (Acute) Medical History Ovarian cyst Stomach ulcer (05/04/17) Family History Mother No problems noted. Father Asthma Social History Smoking/Tobacco Use Status: Never Smoking risk assessment performed?: Yes Alcohol Intake: never Drug use: Never Substance use type: does not use Pets and animals: Yes Pets and animals: cat(s) Sexually active: No Do you think of yourself as: straight/heterosexual Current gender identity: female How often do you talk on the phone with friends or family?: three or more times per week How often do you get together with friends or relatives?: decline to answer Do you belong to any clubs or organized social groups?: no Panel score (0-1 are the most socially isolated patients): 1 What type of physical activity do you participate in: none Catina/Sabianist: No preference Special catina needs: No Seatbelt use: always Drive intox or ride w/intox motorcycle delivery driver: No Do you feel safe at home: Yes Do you feel safe in your relationship?: Yes Exam Narrative Exam Narrative: 1.Const: Well-nourished, Well-developed, appearing stated age 2.Eyes: PERRL, no conjunctival injection, and symmetrical lids. 3.ENT: Atraumatic external nose and ears. Moist MM. Neck: Symmetric, trachea midline, No thyromegaly. 4.CVS: +S1/S2, No murmurs or gallops. Peripheral pulses 2+ and equal in all extremities. Brisk capillary refill in all extremities. 5.RESP: Unlabored respiratory effort. Clear to auscultation bilaterally. No wheezes rales or rhonchi 6.GI: Soft, Nontender/Nondistended, No hepatosplenomegaly. No guarding or rebound. No pain McBurney's point, negative Cosby sign. 7.MSK: Normocephalic/Atraumatic, Extremities w/o deformity or ttp No cyanosis or clubbing, Normal movement of all extremities 8.Skin: Warm, Dry. No rashes or lesions. 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 Sensation grossly intact, no focal neurologic deficits. 10.Psych: (AAO) x3. Appropriate mood and affect Course Vital Signs Vital signs: Vital Signs Temperature 36.5 C 07/05/21 19:22 Pulse 74 07/05/21 19:22 Respiratory Rate 18 07/05/21 19:22 Blood Pressure 142/72 H 07/05/21 19:22 Pulse Oximetry 96 07/05/21 19:22 Temperature 36.5 C 07/05/21 19:22 Pulse 74 07/05/21 19:22 Respiratory Rate 18 07/05/21 19:22 Blood Pressure 142/72 H 07/05/21 19:22 Blood Pressure Position Sitting 07/05/21 19:22 Pulse Oximetry 96 07/05/21 19:22 Oxygen Delivery Method Room Air 07/05/21 19:22 Oxygen Flow Rate 0 07/05/21 19:22
== END 2021-07-05 20:43 | disposition home or self-care (01) ==
PROVIDERS: Emergency Provider Student in an Organized Health Care Education/Training Program; PCP Nurse Practitioner
DX: K21.9 Gastro-esophageal reflux disease without esophagitis (principal); R10.13 Epigastric pain
CPT/HCPCS: 93005; 99283; 93010

== ENCOUNTER 2021-07-05 22:54 | Inpatient (IN) | payer OTHER, SELFPAY ==
[2021-07-05] VITALS (8 sets, daily range): BP systolic 125–132; BP diastolic 45–62; PULSE 53–66; RESP 16; TEMP 36.8; O2SAT 96–99
--- NOTE | 2021-07-05 23:00 | DI.CT_ITS ---
Exam(s) CT ABDOMEN PELVIS WO EXAM: CT ABDOMEN PELVIS WO CLINICAL HISTORY: epigastric discomfort, vomiting. TECHNIQUE: Imaging Protocol: Axial computed tomography images with coronal and sagittal reformatted images were created and reviewed. COMPARISON: No previous for comparison. FINDINGS: ABDOMEN: Lung Bases: Normal where visualized. Liver: Normal density. No measurable mass. Gallbladder and biliary tract: Cholelithiasis. There does appear to be thickening of the wall of the gallbladder. No definite biliary ductal dilatation. There is a question of mild pericholecystic fl uid. Pancreas: Normal density, no abnormal calcifications or inflammatory process. Spleen: Normal. Kidneys: Normal size, contour and axis.No radiodense stones or obstructive uropathy. No masses seen. Adrenal glands: No mass is seen. Lymph nodes: Within normal limits. Abdominal Aorta: Abdominal portion non-dilated. Atherosclerosis. PELVIS: Bladder:Symmetric distention, no gross wall thickening. Bowel: No obstruction or bowel wall thickening. No evidence of appendicitis. There is diverticulosis seen in the sigmoid colon but no evidence of acute diverticulitis. Peritoneal cavity: No ascites, collection or mesenteric inflammatory response. No free air. Reproductive organs: Within normal limits. Bones: Within normal limits. Soft Tissues: Within normal limits. IMPRESSION: Findings suspicious for acute calculus cholecystitis. Ultrasound may be considered for further evalu ation. RADIATION DOSE DELIVERED: 630.19mGy.cm Total DLP DATA REPOSITORY: All CT scans at this facility are submitted to the National Radiology Data Registry (NRDR) Dose Index Registry (DIR) with the [employer] [place] [employer] (A[employer]). RADIATION OPTIMIZATION: All CT scans at this facility use at least one of these dose optimization te chniques: automated exposure control; mA and/or kV adjustment per patient size (includes targeted exa ms where dose is matched to clinical indication); or iterative reconstruction.
[2021-07-05 23:39] LABS: Abs Immature Grans 0.02 10^3/uL (0.0-0.06); Absolute Basophil Count 0.02 10^3/uL (0.0-0.2); Absolute Eosinophil Count 0.17 10^3/uL (0.0-0.7); Absolute Lymphocyte Count 2.18 10^3/uL (1.2-3.4); Absolute Monocyte Count 0.52 10^3/uL (0.1-0.8); Absolute Neutrophil Count 6.31 10^3/uL (1.2-6.7); Basophils % 0.2; Eosinophils % 1.8; HCT 41.2 % (36.0-46.0); HGB 13.8 g/dL (11.2-15.7); Immature Grans % 0.2; Lymphocytes % 23.6; MCH 31.4 pg (27.0-33.0); MCHC 33.5 % (32.0-36.0); MCV 94 fL (80-95); MPV 8.8 fL (8.0-11.0); Monocytes % 5.6; Neutrophils % 68.6; Platelet Count 282 10^3/uL (130-400); RBC 4.39 10^6/uL (3.93-5.22); RDW 12.4 % (11.7-14.6); RDW-SD 43.1 fL; WBC 9.22 10^3/uL (4.4-10.8)
[2021-07-05] MEDS: Normal Saline 1,000 ML 1000 ML IV (23:42)
[2021-07-05] MEDS: Ondansetron 4 MG/2 ML VIAL IVP (23:42)
[2021-07-05] MEDS: Pantoprazole 40 MG VIAL 80 MG IVP (23:43)
[2021-07-05] MEDS: FAMOTIDINE 20 MG in Normal Saline 100 ML 400 MG IVPB (23:43)
--- NOTE | 2021-07-05 23:50 | ED.GENADUL_ITS ---
Discharge Plan Disposition Patient Disposition: [facility] INPATIENT Condition: Stable Discharge Details Chief Complaint: Chest Pain Clinical Impression: Acute cholecystitis, Acute pancreatitis Primary Care Provider: Qing Colunga ED Provider: French Velázquez Home Meds and New Rx's Prescriptions: No Action lisinopril 10 mg tablet 20 mg PO DAILY Metamucil 3.4 gram/5.4 gram powder 1 tbsp PO DAILY Rx Instructions: mix into at least 8 oz of water or juice before administering acetaminophen [Arthritis Pain Relief (acetam)] 650 MG tablet 2 tab PO BID atorvastatin 40 mg tablet 40 mg PO QPM Qty: 90 4RF famotidine 20 mg tablet 20 mg PO QHS Qty: 180 4RF sucralfate [Carafate] 1 gram tablet 1 g PO BID Qty: 60 0RF Medical Decision Making 76-year-old female who presents for an episode of vomiting. This is her third visit today. Previous to visit she refused labs and imaging. She states that she is willing to get this now. On her last visit I did see her, she was willing to get an EKG which was unremarkable. Current exam shows no tenderness whatsoever, she states that she feels well, she just states that I do not want to go home and feel nauseous and throw up again. We will get a CT scan to rule out obstruction or GB pathology, give Protonix and famotidine IV, give IV Zofran, gently rehydrate, monitor closely and reassess 1:40 AM Laboratory work-up shows no white count, bandemia or left shift. Minimal elevation of transaminases with an AST of 64 and an ALT of 76. Troponin normal. Bilirubin is normal at 1.0. Lipase is elevated at 4081. Urinalysis shows no evidence of infection. CT scan results have returned and show it findings consistent with acute calculus cholecystitis. Mild enteritis but no evidence of small bowel obstruction as of now. Repeat exam continues to show no evidence of right upper quadrant tenderness or abdominal pain on palpation. I discussed the findings with the surgical team Dr. Briscoe, and unfortunately over the weekend we do not have ultrasound, MRCP, or HIDA scan capabilities. Additionally there is not ERCP capabilities here. Surgery recommends reaching out to [facility] for further testing and monitoring. 3 AM We have contacted [facility], [facility], [facility], [facility], [facility], [facility], and [facility]. All of which refused transfer unless the patient is a STEMI. With notable multiple refusals in our service treatment area, I did readdress the situation with the surgeon on-call. At this time understanding the current medical transfer predicament, we will accept the patient here for continued observation, monitoring, and expectant transfer. I have extensively reviewed the treatment plan with the patient. I have addressed all patient concerns at this time. I have also discussed the plan with the admitting physician and they agree with the current assessment and plan and have agreed to assume responsibility for the patient. All parties demonstrate verbal understanding and agreement with our assessment and plan at this time. The documentation in this chart was dictated using MobilePro dictation software. Please excuse any dictation errors. FINDINGS: Lungs: There is minimal bibasilar atelectasis. Heart: Mild pericardial thickening present. There is mild atherosclerotic calcification of the coronary arteries. Diaphragm: A small hiatal hernia is present. Liver: There appears to be intrahepatic and extrahepatic biliary dilatation. There is a diffuse decrease in hepatic parenchymal density, consistent with mild fatty infiltration. Gallbladder and bile ducts: The gallbladder is hydropic measuring 8.8 x 4.4 cm. There is thickening of the gallbladder wall. There gallstone seen at the dependent portion of the gallbladder. There is a small amount of pericholecystic fluid present. Findings are consistent with calculus cholecystitis. There appears to be intrahepatic and extrahepatic biliary dilatation. Pancreas: There is mild pancreatic atrophy and fatty replacement. Spleen: The spleen is normal. Adrenal glands: The adrenal glands are normal. Kidneys and ureters: The kidneys are normal. Stomach and bowel: There is no evidence of intestinal obstruction. There are fluid-filled loops of small bowel with air-fluid levels. No significant bowel wall thickening or inflammatory changes. No evidence of obstruction. Consider early enteritis. Moderate diverticulosis is present in the sigmoid and descending colon. There is no evidence of diverticulitis Appendix: There is no evidence of appendicitis. Intraperitoneal space: Unremarkable. No free air. No significant fluid collection. Vasculature: The aorta demonstrates mild atherosclerotic calcification. The arterial peripheral vasculature demonstrates diffuse mild atherosclerotic calcification. The inferior venacava appears normal.The portal, mesenteric and splenic veins are patent. Lymph nodes: Unremarkable. No enlarged lymph nodes. Urinary bladder: Unremarkable as visualized. Reproductive: The uterus is normal. Bones/joints: There is a levoconvex scoliosis of the lumbosacral spine. There are moderate to severe degenerative changes of the lumbosacral spine. There are mild degenerative changes sacroiliac joints bilaterally. Findings consistent with osteoarthritis right greater than left hips. The thoracolumbar spine demonstrates moderate degenerative changes at multiple levels. Soft tissues: There is a fat-containing umbilical hernia. IMPRESSION: 1. Findings are consistent with acute calculus cholecystitis. Clinical correlat ion recommended consider ultrasound if clinically warranted. There is associated biliary dilatation 2. There are fluid-filled loops of small bowel with air-fluid levels. No significant bowel wall thickening or inflammatory changes. No evidence of obstruction. Consider early enteritis. Thank you for allowing us to participate in the care of your patient. Dictated and Authenticated by: Jayy Fields MD 07/06/2021 1:20 AM Eastern Time ([place] & [place]) HPI General Date/Time Provider Initiated Documentation: 07/05/21 23:13 . HPI Narrative: Patient with discharged 2 hours ago. Attached is the previous HPI. Please also refer to the third visit which occurred earlier today by nurse practitioner Sarita Toro. 76-year-old female with a past medical history of GERD, reflux, type 2 diabetes, hypertension, presents today for evaluation of a stomach ulcer.? Patient was here earlier today, and she states that this morning her symptoms started around breakfast time, she states I have had this ulcer since I was a teenager.? This is the exact same thing as I have always had.? She states that after breakfast this morning she had an episode of achiness, and then this persisted throughout the day.? She came to the ER but on the way here she had an episode of vomiting which completely resolved the pain.? She refused the initial work-up on her visit here before, and eventually left.? Throughout the day she was doing fine until later in the evening when she had [place] fried chicken, mashed potatoes and coleslaw she again developed achiness in her stomach, and came to the ER again, similar to the previous episode she had an episode of vomiting just prior to arrival and her pain completely resolved after the vomiting.? Currently she states she feels fine.? She is refusing to see a nurse practitioner or PA.? She is requesting to see a physician.? Past surgical history is positive for an appendectomy.? She denies any other complaints at this time.? She denies any hematemesis, chest heaviness, chest tightness, arm neck or shoulder pain, exertional dyspnea, exertional chest pain, back pain.? She denies any history of heart disease.? She denies any tobacco abuse.? No other complaints at this time.? No other modifying factors.? She denies any recent spicy foods, increase in NSAID use, or tomato-based products. Current HPI: Patient was discharged after she did not want any additional work- up, labs or imaging. She stated that she felt great, and was ready to go home. Patient went home, when she got home she again felt nauseous. She then drove to the ER again, and on the way to the ER had a repeat episode of vomiting, and had complete resolution of her symptoms after that. Patient has no new or additional complaints currently. She denies any abdominal pain or chest pain. She states that she would like some IV medications now, and is willing to get the labs. No other complaints at this time. No other modifying factors. Related Data Home Medications Medication Instructions Recorded Confirmed acetaminophen 650 mg 2 tab PO BID 05/04/17 07/05/21 tablet,extended release (Arthritis Pain Relief (acetaminophen) ER) atorvastatin 40 mg tablet 40 mg PO QPM #90 tabs 09/04/20 07/05/21 famotidine 20 mg tablet 20 mg PO QHS #180 tabs 09/05/20 07/05/21 psyllium husk 3.4 gram/5.4 gram 1 tbsp PO DAILY 09/23/20 07/05/21 oral powder (Metamucil) lisinopril 10 mg tablet 20 mg PO DAILY 03/07/21 07/05/21 sucralfate 1 gram tablet (Carafate) 1 g PO BID #60 tabs 07/05/21 Previous Rx's Medication Instructions Recorded atorvastatin 40 mg tablet 40 mg PO QPM #90 tabs 09/04/20 famotidine 20 mg tablet 20 mg PO QHS #180 tabs 09/05/20 sucralfate 1 gram tablet (Carafate) 1 g PO BID #60 tabs 07/05/21 Allergies Allergy/AdvReac Type Severity Reaction Status Date / Time house dust Allergy Mild Unverified 07/05/21 19:28 weed pollen Allergy Mild Unverified 07/05/21 19:28 aspirin AdvReac Intermediate Nausea Unverified 07/05/21 19:28 tomato AdvReac Mild Skin Rash Verified 07/05/21 19:28 chocolate flavor AdvReac Verified 07/05/21 19:28 Latex, Natural Rubber AdvReac white Verified 07/05/21 19:28 bumps on hands General Stated Complaint: Chest Pain DONNELL: 4 Review of Systems All systems reviewed & are unremarkable except as noted in HPI and below PFSH All Active Problems (Updated 07/06/21 @ 03:02 by French Velázquez DO) Abdominal pain (Acute) Burning reflux (Acute) Acute cholecystitis (Acute) Acute pancreatitis (Acute) GERD (gastroesophageal reflux disease) (Chronic) Osteoarthritis (Chronic) HTN (hypertension) (Chronic) Keratolysis exfoliativa (Acute) Type 2 diabetes mellitus (Acute) Lipoma of scalp (Acute) Sebaceous cyst (Acute) Medical History Ovarian cyst Stomach ulcer (05/04/17) Family History Mother No problems noted. Father Asthma Social History Smoking/Tobacco Use Status: Never Smoking risk assessment performed?: Yes Alcohol Intake: never Drug use: Never Substance use type: does not use Pets and animals: Yes Pets and animals: cat(s) Sexually active: No Do you think of yourself as: straight/heterosexual Current gender identity: female How often do you talk on the phone with friends or family?: three or more times per week How often do you get together with friends or relatives?: decline to answer Do you belong to any clubs or organized social groups?: no Panel score (0-1 are the most socially isolated patients): 1 What type of physical activity do you participate in: none Catina/Synagogue: No preference Special catina needs: No Seatbelt use: always Drive intox or ride w/intox pole truck driver: No Do you feel safe at home: Yes Do you feel safe in your relationship?: Yes Exam Narrative Exam Narrative: 1.Const: Well-nourished, Well-developed, appearing stated age 2.Eyes: PERRL, no conjunctival injection, and symmetrical lids. 3.ENT: Atraumatic external nose and ears. Moist MM. Neck: Symmetric, trachea midline, No thyromegaly. 4.CVS: +S1/S2, No murmurs or gallops. Peripheral pulses 2+ and equal in all ext remities. Brisk capillary refill in all extremities. 5.RESP: Unlabored respiratory effort. Clear to auscultation bilaterally. No wheezes rales or rhonchi 6.GI: Soft, Nontender/Nondistended, No hepatosplenomegaly. No guarding or rebound. No abdominal pain or tenderness whatsoever on palpation of the abdomen, suprapubic region or 7.MSK: Normocephalic/Atraumatic, Extremities w/o deformity or ttp No cyanosis or clubbing, Normal movement of all extremities 8.Skin: Warm, Dry. No rashes or lesions. 9.Neuro: children's aide II-XII grossly intact. Sensation grossly intact, no focal neurologic deficits. 10.Psych: (AAO) x3. Appropriate mood and affect Course Vital Signs Vital signs: Vital Signs Temperature 36.8 C 07/05/21 23:00 Pulse 66 07/05/21 23:00 Respiratory Rate 16 07/05/21 23:00 Blood Pressure 132/45 L 07/05/21 23:00 Pulse Oximetry 96 07/05/21 23:00 Temperature 36.8 C 07/05/21 23:00 Pulse 66 07/05/21 23:00 Respiratory Rate 16 07/05/21 23:00 Blood Pressure 132/45 L 07/05/21 23:00 Blood Pressure Position Sitting 07/05/21 23:00 Pulse Oximetry 96 07/05/21 23:00 Oxygen Delivery Method Room Air 07/05/21 23:00 Oxygen Flow Rate 0 07/05/21 23:00 Pain Level 0 07/05/21 23:00 Lab/Test Results Lab/Test Results: Laboratory Tests Range/Units 07/05/21 23:17 WBC (4.4-10.8) 10^3/uL 9.22 RBC (3.93-5.22) 10^6/uL 4.39 Hgb (11.2-15.7) g/dL 13.8 Hct (36.0-46.0) % 41.2 MCV (80-95) fL 94 MCH (27.0-33.0) pg 31.4 MCHC (32.0-36.0) % 33.5 RDW (11.7-14.6) % 12.4 Plt Count (130-400) 10^3/uL 282 MPV (8.0-11.0) fL 8.8 Immature Gran % 0.2 Neutrophils % 68.6 Lymphocytes % 23.6 Monocytes % 5.6 Eosinophils % 1.8 Basophils % 0.2 Nucleated RBC % (0.0-0.3) % 0.0 Absolute Neutrophils (1.2-6.7) 10^3/uL 6.31 Absolute Lymphocytes (1.2-3.4) 10^3/uL 2.18 Absolute Monocytes (0.1-0.8) 10^3/uL 0.52 Absolute Eosinophils (0.0-0.7) 10^3/uL 0.17 Absolute Basophils (0.0-0.2) 10^3/uL 0.02
[2021-07-05 23:52] LABS: ALT 76 U/L (14-59); AST 64 U/L (15-37); Albumin 3.7 g/dL (3.4-5.0); Alkaline Phosphatase 84 U/L (46-116); Anion Gap 8.6 mmol/L (3-11); BUN 13 mg/dL (7-18); CO2 24.4 mmol/L (21.0-32.0); CREATININE 0.7 mg/dL (0.55-1.02); Chloride 107 mmol/L (98-107); Glucose 125 mg/dL (74-106); Potassium 3.6 mmol/L (3.5-5.1); Sodium 140 mmol/L (136-145); Total Protein 6.7 g/dL (6.4-8.2); Troponin I < 50 ng/L (<or=60)
[2021-07-06] VITALS (11 sets, daily range): BP systolic 98–141; BP diastolic 55–83; PULSE 49–71; RESP 11–21; TEMP 36–37.7; O2SAT 88–100
[2021-07-06 00:49] LABS: Lipase 4081 U/L (73-393)
[2021-07-06 01:13] LABS: Bilirubin Negative (Negative); Blood Trace-intact (Negative); Clarity Clear (Clear); Glucose Negative (Negative); Ketones 40 mg/dL (Negative); Leukocyte Esterase Negative (Negative); Nitrite Negative (Negative); Specific Gravity >= 1.030 (1.005-1.025); Urobilinogen 0.2 EU/dL (Up TO 0.2); pH 5.5 (5-8)
--- NOTE | 2021-07-06 01:21 | DI.VRAD_ITS ---
PROCEDURE INFORMATION: Exam: CT Abdomen And Pelvis Without Contrast Exam date and time: 07/06/2021 12:17 AM Age: 76 years old Clinical indication: Abdominal pain; Patient HX: Epigastric discomfort, vomiting TECHNIQUE: Imaging protocol: Computed tomography of the abdomen and pelvis without contrast. COMPARISON: CR RT HIP COMPLETE AP PELVIS 12/29/2014 12:34 AM FINDINGS: Lungs: There is minimal bibasilar atelectasis. Heart: Mild pericardial thickening present. There is mild atherosclerotic calcification of the coronary arteries. Diaphragm: A small hiatal hernia is present. Liver: There appears to be intrahepatic and extrahepatic biliary dilatation. There is a diffuse decrease in hepatic parenchymal density, consistent with mild fatty infiltration. Gallbladder and bile ducts: The gallbladder is hydropic measuring 8.8 x 4.4 cm. There is thickening of the gallbladder wall. There gallstone seen at the dependent portion of the gallbladder. There is a small amount of pericholecystic fluid present. Findings are consistent with calculus cholecystitis. There appears to be intrahepatic and extrahepatic biliary dilatation. Pancreas: There is mild pancreatic atrophy and fatty replacement. Spleen: The spleen is normal. Adrenal glands: The adrenal glands are normal. Kidneys and ureters: The kidneys are normal. Stomach and bowel: There is no evidence of intestinal obstruction. There are fluid-filled loops of small bowel with air-fluid levels. No significant bowel wall thickening or inflammatory changes. No evidence of obstruction. Consider early enteritis. Moderate diverticulosis is present in the sigmoid and descending colon. There is no evidence of diverticulitis. Appendix: There is no evidence of appendicitis. Intraperitoneal space: Unremarkable. No free air. No significant fluid collection. Vasculature: The aorta demonstrates mild atherosclerotic calcification. The arterial peripheral vasculature demonstrates diffuse mild atherosclerotic calcification. The inferior venacava appears normal.The portal, mesenteric and splenic veins are patent. Lymph nodes: Unremarkable. No enlarged lymph nodes. Urinary bladder: Unremarkable as visualized. Reproductive: The uterus is normal. Bones/joints: There is a levoconvex scoliosis of the lumbosacral spine. There are moderate to severe degenerative changes of the lumbosacral spine. There are mild degenerative changes sacroiliac joints bilaterally. Findings consistent with osteoarthritis right greater than left hips. The thoracolumbar spine demonstrates moderate degenerative changes at multiple levels. Soft tissues: There is a fat-containing umbilical hernia. IMPRESSION: 1. Findings are consistent with acute calculus cholecystitis. Clinical correlation recommended consider ultrasound if clinically warranted. There is associated biliary dilatation 2. There are fluid-filled loops of small bowel with air-fluid levels. No significant bowel wall thickening or inflammatory changes. No evidence of obstruction. Consider early enteritis. Dictated and Authenticated by: Jayy Fields MD. Ordering:JASON Braswell MD
[2021-07-06 01:23] LABS: Bacteria Rare HPF (Negative); RBC 0-2 HPF (0-2); WBC Negative HPF (0-5)
[2021-07-06 01:24] LABS: C & S Indicated? No; Crystals Negative HPF (Negative); Epithelial Cells Few HPF (Negative); Mucus Moderate (Negative)
[2021-07-06 02:05] LABS: Source Nasal/Nares
--- NOTE | 2021-07-06 02:55 | W.PM.HP.N ---
Date of service: 07/06/21 Time of Service: 08:56 Assessment and Plan Assessment and plan (1) Acute gallstone pancreatitis: Status: Acute Assessment and plan: -Continue IVF, IV antibiotics, PRN analgesics and antiemetics -RUQ US in AM, dilated intra and extra hepatic ducts on CT concerning for obstruction although labs do not reflect obstruction -Patient aware MRI may be warranted, has severe claustrophobia and will refuse study despite anxiolytic medication -Lipase down-trending, will continue to monitor; clinically resolved -Clear liquid diet today, NPO after midnight (2) Acute calculous cholecystitis: Status: Acute Assessment and plan: -Will need cholecystectomy, continue IV antibiotics -Possible need for ERCP prior to surgery -Awaiting resolution of pancreatitis prior to cholecystectomy (3) Enteritis: Status: Acute (4) Abdominal pain: Status: Acute (5) Burning reflux: Status: Acute (6) GERD (gastroesophageal reflux disease): Status: Chronic Qualifiers: Esophagitis presence: esophagitis presence not specified Qualified Code(s): K21.9 - Gastro-esophageal reflux disease without esophagitis (7) Osteoarthritis: Status: Chronic Qualifiers: Osteoarthritis location: unspecified site Osteoarthritis type: primary Qualified Code(s): M19.91 - Primary osteoarthritis, unspecified site (8) HTN (hypertension): Status: Chronic Qualifiers: Hypertension type: essential hypertension Qualified Code(s): I10 - Essential (primary) hypertension History of Present Illness Narrative: 76 year old female who presented to the emergency room multiple times yesterday complaining of abdominal pain and vomiting. She states she has a history of a nervous ulcer diagnosed by a family doctor who did an x-ray on her. Has never had an EGD but states she has had this kind of pain and symptomatology on multiple previous occasions and usually resolves within 24 hours. Labs done last night revealed evidence of pancreatitis and transaminitis. CT scan showed a dilated gallbladder with stones and pericholecystic fluid as well as dilated intrahepatic and extrahepatic ducts. Initially due to concern for needing an ERCP and lack of abdominal US here on weekends, I requested transfer to higher level of care. After exhausting all possible transfer hospitals who refused to accept the patient unless she was having a STEMI, I agreed to accept the patient for admission with possible need for urgent ERCP. Gallbladder appears obstructed on CT and patient is at risk for ascending cholangitis in addition to worsening clinical status. She was started on IV fluids, IV antibiotics and analgesics. She is agreeable the plan and understands the need for possible procedure at outside hospital prior to cholecystectomy and once her pancreatitis resolves. She has had one previous abdominal surgery via pfannenstiel incision that included bilateral oophorectomy with concurrent cystectomy and incidental appendectomy. Her medical problems include GERD, hypertension and hyperlipidemia. Review of Systems All systems reviewed & are unremarkable except as noted in HPI and below Gastrointestinal Gastrointestinal: Reports abdominal pain, Denies melena, Denies hematochezia, Reports cramping, Reports dyspepsia, Reports nausea, Reports vomiting and Denies hematemesis PFSH All Active Problems (Updated 07/06/21 @ 11:13 by Jess Peng DO) Enteritis (Acute) Acute gallstone pancreatitis (Acute) Acute calculous cholecystitis (Acute) Abdominal pain (Acute) Burning reflux (Acute) Acute cholecystitis (Acute) Acute pancreatitis (Acute) GERD (gastroesophageal reflux disease) (Chronic) Osteoarthritis (Chronic) HTN (hypertension) (Chronic) Keratolysis exfoliativa (Acute) Type 2 diabetes mellitus (Acute) Lipoma of scalp (Acute) Sebaceous cyst (Acute) Medical History Ovarian cyst Stomach ulcer (05/04/17) Family History Mother No problems noted. Father Asthma Social History Smoking/Tobacco Use Status: Never Smoking risk assessment performed?: Yes Alcohol Intake: never Drug use: Never Substance use type: does not use Pets and animals: Yes Pets and animals: cat(s) Sexually active: No Do you think of yourself as: straight/heterosexual Current gender identity: female How often do you talk on the phone with friends or family?: three or more times per week How often do you get together with friends or relatives?: decline to answer Do you belong to any clubs or organized social groups?: no Panel score (0-1 are the most socially isolated patients): 1 What type of physical activity do you participate in: none Catina/Jainism: No preference Special catina needs: No Seatbelt use: always Drive intox or ride w/intox services delivery driver: No Do you feel safe at home: Yes Do you feel safe in your relationship?: Yes Meds Allergies and Home Medications Allergies Allergy/AdvReac Type Severity Reaction Status Date / Time house dust Allergy Mild Unverified 07/05/21 19:28 weed pollen Allergy Mild Unverified 07/05/21 19:28 aspirin AdvReac Intermediate Nausea Unverified 07/05/21 19:28 tomato AdvReac Mild Skin Rash Verified 07/05/21 19:28 chocolate flavor AdvReac Verified 07/05/21 19:28 Latex, Natural Rubber AdvReac white Verified 07/05/21 19:28 bumps on hands Home Medications Medication Instructions Recorded Confirmed Type acetaminophen 650 mg 2 tab PO BID 05/04/17 07/06/21 History tablet,extended release (Arthritis Pain Relief (acetaminophen) ER) atorvastatin 40 mg tablet 40 mg PO QPM #90 tabs 09/04/20 07/06/21 Rx famotidine 20 mg tablet 20 mg PO QHS #180 tabs 09/05/20 07/06/21 Rx psyllium husk 3.4 gram/5.4 gram 1 tbsp PO DAILY 09/23/20 07/06/21 History oral powder (Metamucil) lisinopril 10 mg tablet 20 mg PO DAILY 03/07/21 07/06/21 History sucralfate 1 gram tablet (Carafate) 1 g PO BID #60 tabs 07/05/21 07/06/21 Rx Exam Const General: cooperative, comfortable and no acute distress Nutritional Appearance: average body habitus Eyes General: appearance normal, both eyes and all related structures Resp Effort & Inspection: normal respiratory effort, able to speak in complete sentences, no audible wheezes, no cough and no respiratory distress Cardio Rate: regular rate and bradycardic Rhythm: regular rhythm GI Inspection: normal to inspection, non-distended and scar (pfannenstiel, well healed) Palpation: soft, no guarding and nontender Percussion: normal to percussion Skin General skin exam: no rashes or lesions noted Neuro General: patient alert, patient awake and patient oriented x3 Results Labs Result diagrams: 07/06/21 06:08 07/06/21 06:08 Labs: Laboratory Results - last 24 hr 07/05/21 07/05/21 07/05/21 23:17 23:17 23:17 WBC 9.22 RBC 4.39 Hgb 13.8 Hct 41.2 MCV 94 MCH 31.4 MCHC 33.5 RDW 12.4 Plt Count 282 MPV 8.8 Immature Gran % 0.2 Neutrophils % 68.6 Lymphocytes % 23.6 Monocytes % 5.6 Eosinophils % 1.8 Basophils % 0.2 Nucleated RBC % 0.0 Absolute Neutrophils 6.31 Absolute Lymphocytes 2.18 Absolute Monocytes 0.52 Absolute Eosinophils 0.17 Absolute Basophils 0.02 Sodium 140 Potassium 3.6 Chloride 107 Carbon Dioxide 24.4 Anion Gap 8.6 BUN 13 Creatinine 0.7 Estimated GFR/1.73 m2 >= 60.00 Glucose 125 H Calcium 9.0 Total Bilirubin 1.0 AST 64 H ALT 76 H Alkaline Phosphatase 84 Troponin I < 50 Total Protein 6.7 Albumin 3.7 Lipase 4081 H Urine Color Urine Clarity Urine pH Ur Specific Maxwell Urine Protein Urine Ketones Urine Blood Urine Nitrite Urine Bilirubin Urine Urobilinogen Ur Leukocyte Esterase Urine RBC Urine WBC Ur Epithelial Cells Urine Crystals Urine Bacteria Urine Mucus Ur Culture Indicated? Urine Glucose COVID-19 Source 07/06/21 07/06/21 00:50 01:50 WBC RBC Hgb Hct MCV MCH MCHC RDW Plt Count MPV Immature Gran % Neutrophils % Lymphocytes % Monocytes % Eosinophils % Basophils % Nucleated RBC % Absolute Neutrophils Absolute Lymphocytes Absolute Monocytes Absolute Eosinophils Absolute Basophils Sodium Potassium Chloride Carbon Dioxide Anion Gap BUN Creatinine Estimated GFR/1.73 m2 Glucose Calcium Total Bilirubin AST ALT Alkaline Phosphatase Troponin I Total Protein Albumin Lipase Urine Color Yellow Urine Clarity Clear Urine pH 5.5 Ur Specific Maxwell >= 1.030 H Urine Protein Negative Urine Ketones 40 H Urine Blood Trace-intact H Urine Nitrite Negative Urine Bilirubin Negative Urine Urobilinogen 0.2 Ur Leukocyte Esterase Negative Urine RBC 0-2 Urine WBC Negative Ur Epithelial Cells Few Urine Crystals Negative Urine Bacteria Rare Urine Mucus Moderate Ur Culture Indicated? No Urine Glucose Negative COVID-19 Source Nasal/Nares Last Vital Signs Temp 98.2 F 07/05/21 23:00 Pulse 53 L 07/06/21 00:01 Resp 19 07/06/21 00:50 BP 124/55 L 07/06/21 00:01 Pulse Ox 88 L 07/06/21 00:50
[2021-07-06 02:59] LABS: COVID-19 PCR Negative (Negative)
[2021-07-06] MEDS: metroNIDAZOLE 500 MG/100 ML BAG 100 MG IVPB ×3 (03:29→19:53)
[2021-07-06] MEDS: Lactated Ringers 1,000 ML 75 ML IV ×2 (04:44→19:24)
[2021-07-06] MEDS: Normal Saline Flush 10 ML SYR IVP ×3 (04:44→14:18)
--- NOTE | 2021-07-06 06:08 | NUR.NOTE ---
Nursing Note: Patient refused scheduled tylenol. Patient stated It will upset my stomach Patient educated on IV medications and refused.
--- NOTE | 2021-07-06 06:20 | NUR.NOTE ---
Nursing Note:Patient states I will not take any medications on an empty stomach, it upsets it. Patient educated on IV medications and continued to refuse. Wallet in safe. Home medications sent to pharmacy.
[2021-07-06 06:24] LABS: Abs Immature Grans 0.02 10^3/uL (0.0-0.06); Absolute Basophil Count 0.03 10^3/uL (0.0-0.2); Absolute Eosinophil Count 0.15 10^3/uL (0.0-0.7); Absolute Lymphocyte Count 2.75 10^3/uL (1.2-3.4); Absolute Monocyte Count 0.65 10^3/uL (0.1-0.8); Absolute Neutrophil Count 6.45 10^3/uL (1.2-6.7); Basophils % 0.3; Eosinophils % 1.5; HCT 38.5 % (36.0-46.0); HGB 12.9 g/dL (11.2-15.7); Immature Grans % 0.2; Lymphocytes % 27.4; MCH 31.9 pg (27.0-33.0); MCHC 33.5 % (32.0-36.0); MCV 95 fL (80-95); Monocytes % 6.5; Neutrophils % 64.1; Platelet Count 225 10^3/uL (130-400); RBC 4.05 10^6/uL (3.93-5.22); RDW 12.6 % (11.7-14.6); RDW-SD 43.6 fL; WBC 10.05 10^3/uL (4.4-10.8)
[2021-07-06 06:33] LABS: Prothrombin Time 10.5 sec (9.3-11.0)
[2021-07-06 06:39] LABS: ALT 61 U/L (14-59); AST 39 U/L (15-37); Albumin 3.2 g/dL (3.4-5.0); Alkaline Phosphatase 69 U/L (46-116); Anion Gap 8.7 mmol/L (3-11); BUN 9 mg/dL (7-18); Bilirubin, Direct 0.2 mg/dL (0.0-0.2); CO2 25.3 mmol/L (21.0-32.0); CREATININE 0.6 mg/dL (0.55-1.02); Calcium 8.4 mg/dL (8.5-10.1); Chloride 111 mmol/L (98-107); Glucose 102 mg/dL (74-106); Lipase 963 U/L (73-393); Potassium 3.6 mmol/L (3.5-5.1); Sodium 145 mmol/L (136-145); Total Protein 5.8 g/dL (6.4-8.2)
[2021-07-06] MEDS: Pantoprazole 40 MG VIAL IVP (09:05)
--- NOTE | 2021-07-06 09:21 | PDOC.CMIN ---
- If Service Date Differs Date of service: 07/06/21 Time of Service: 09:21 Care Management Initial Assess REASON FOR HOSPITALIZATION:: Gallstone pancreatitis. PAST MEDICAL HISTORY/PAST SURGICAL HISTORY:: All Active Problems: Abdominal pain (Acute), Burning reflux (Acute), Acute cholecystitis (Acute), Acute pancreatitis (Acute), GERD (gastroesophageal reflux disease) (Chronic), Osteoarthritis (Chronic), HTN (hypertension) (Chronic), Keratolysis exfoliativa (Acute), Type 2 diabetes mellitus (Acute), Lipoma of scalp (Acute), and Sebaceous cyst (Acute). Medical History: Ovarian cyst and Stomach ulcer (05/04/17). Surgical History: No surgical history noted in chart. PREVIOUS FUNCTIONAL STATUS/SOCIAL/FAMILY SUPPORTS:: Mignon lives in [place] with her , Riaz. Mignon has three adult children but says she has little to no contact with two of them. She explains their father many years ago and she remarried. Her daughter and youngest son reportedly do not care for her current . 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 She enjoys ceramics and number painting and says she [place] lots of supportive friends [place]. Mignon is independent with her ADLs at baseline. CURRENT FUNCTIONAL STATUS:: Mignon is sitting on the side of the bed when CM stops by her room. She makes good eye contact and easily engages in conversation. She talks about her first and how she had to give up her job at [employer] to care for him when he became ill. ADVANCE DIRECTIVES:: On file; Riaz Hudson Jr. is appointed as Health Care Agent. Has patient been provided with info about the portal/API?: Yes Did the patient sign up for the portal?: No CODE STATUS:: Full Code INSURANCE COVERAGE / FINANCIAL ISSUES:: [facility] [employer] [place] and [facility]. CURRENT HOME/COMMUNITY SERVICES/EQUIPMENT:: No services or equipment. Her home has a ramp and an electric scooter is on order for her . PRIMARY CARE PHYSICIAN:: Qing Colunga, Ph.D., ANP ([facility]). POTENTIAL DISCHARGE NEEDS:: Follow up appointments with PCP and surgeon. PATIENT/FAMILY EDUCATION NEEDS:: Review of discharge instructions; discuss Ask Me Three and self management. ANTICIPATED BARRIERS TO DISCHARGE:: None identified at this time. TRANSPORTATION:: Via private vehicle with her , Riaz. PLAN:: Mignon will discharge home with no services when medically cleared by provider. She will follow up with her PCP, surgeon, and plan of care as directed. She will be transported home via private vehicle by her when ready. CM will continue to follow.
[2021-07-06] MEDS: cefTRIAXone 2 GM/50 ML BAG IVPB (10:50)
[2021-07-06] MEDS: Normal Saline 500 ML 30 ML IV (10:50)
[2021-07-06] MEDS: Atorvastatin 40 MG TAB PO (19:53)
[2021-07-06] MEDS: Acetaminophen 500 MG TAB PO (23:15)
[2021-07-07] MEDS: metroNIDAZOLE 500 MG/100 ML BAG 100 MG IVPB ×2 (03:59→13:54)
[2021-07-07 05:00] VITALS: BP 98/59; PULSE 49; RESP 16; TEMP 36; O2SAT 98
[2021-07-07] MEDS: Famotidine 20 MG/2 ML VIAL IVP (06:10)
--- NOTE | 2021-07-07 07:00 | DI.US_ITS ---
Exam(s) US ABDOMEN EXAM: US ABDOMEN CLINICAL HISTORY: r/o choledocolithiasis, gallstone pancreatitis TECHNIQUE: Ultrasound abdomen performed using standard protocol. COMPARISON: CT CT ABDOMEN PELVIS WO from 07/06/2021 FINDINGS: LIVER: Normal size and echogenicity. No focal liver lesions are seen.. GALLBLADDER: Multiple small stones.. Wall thickening. Minimal pericholecystic fluid identified. LIRA'S SIGN: Negative. BILIARY SYSTEM: No intrahepatic or extrahepatic biliary ductal dilation. No visible common duct ston e. KIDNEYS: Kidneys are symmetric in size. No evidence of renal calculi. No evidence of hydronephrosis. No renal mass or cyst identified. PANCREAS: Normal where visualized. SPLEEN: Not enlarged. ABDOMINAL AORTA AND IVC: Visualized portions normal caliber. ASCITES: None seen. IMPRESSION: Cholelithiasis. Mild gallbladder wall thickening and mild amount of pericholecystic fluid. Findings could indicate acute cholecystitis. No biliary dilatation or visible common duct stone.. DATA REPOSITORY:
[2021-07-07 07:03] LABS: Abs Immature Grans 0.02 10^3/uL (0.0-0.06); Absolute Basophil Count 0.04 10^3/uL (0.0-0.2); Absolute Eosinophil Count 0.22 10^3/uL (0.0-0.7); Absolute Monocyte Count 0.52 10^3/uL (0.1-0.8); Absolute Neutrophil Count 3.74 10^3/uL (1.2-6.7); Basophils % 0.6; Eosinophils % 3.4; HCT 39.2 % (36.0-46.0); HGB 12.9 g/dL (11.2-15.7); Immature Grans % 0.3; Lymphocytes % 30.6; MCH 31.5 pg (27.0-33.0); MCHC 32.9 % (32.0-36.0); MCV 96 fL (80-95); MPV 9.1 fL (8.0-11.0); Neutrophils % 57.1; Platelet Count 230 10^3/uL (130-400); RDW 12.9 % (11.7-14.6); RDW-SD 45.8 fL; WBC 6.54 10^3/uL (4.4-10.8)
[2021-07-07 07:38] LABS: ALT 50 U/L (14-59); AST 33 U/L (15-37); Alkaline Phosphatase 64 U/L (46-116); Anion Gap 8.9 mmol/L (3-11); BUN 9 mg/dL (7-18); Bilirubin, Direct 0.3 mg/dL (0.0-0.2); Bilirubin, Total 1.3 mg/dL (0.2-1.0); CO2 25.1 mmol/L (21.0-32.0); CREATININE 0.7 mg/dL (0.55-1.02); Calcium 8.7 mg/dL (8.5-10.1); Chloride 111 mmol/L (98-107); Glucose 100 mg/dL (74-106); Lipase 162 U/L (73-393); Magnesium 2.4 mg/dL (1.8-2.4); PHOSPHORUS 3.6 mg/dL (2.6-4.7); Potassium 3.6 mmol/L (3.5-5.1); Sodium 145 mmol/L (136-145); Total Protein 5.7 g/dL (6.4-8.2)
[2021-07-07 08:34] VITALS: BP 145/75; PULSE 43; RESP 16; TEMP 36.9; O2SAT 96
--- NOTE | 2021-07-07 10:43 | PDOC.CMPRO ---
- If Service Date Differs Date of service: 07/07/21 Time of Service: 10:43 Care Management Progress Note S/O: A: Mignon is a 76 year old female admitted to [facility] on 07/06/21 with gallstone pancreatitis. P: Mignon will discharge home with no services when medically cleared by provider. She will follow up with her PCP, surgeon, and plan of care as directed. She will be transported home via private vehicle by her when ready. CM will continue to follow.
[2021-07-07] MEDS: Pantoprazole 40 MG VIAL IVP (11:50)
[2021-07-07] MEDS: Normal Saline Flush 10 ML SYR IVP (12:03)
[2021-07-07] MEDS: cefTRIAXone 2 GM/50 ML BAG IVPB (12:10)
[2021-07-07] MEDS: Lisinopril 10 MG TAB 20 MG PO (12:10)
--- NOTE | 2021-07-07 13:46 | W.PM.PROGNOT ---
Date of Service Date of service: 07/07/21 Time of Service: 12:46 Assessment and Plan Assessment and plan (1) Acute gallstone pancreatitis: Status: Acute Assessment and plan: PAD #1- Gallstone pancreatitis no resolved Discussed Lap Rl vs out patient lap rl after we allow the inflammation around her Pancreas to completely resolve. Risks of waiting include repeat admission with gallstone pancreatitis. Discussed both options and answered her questions. Patient would like to try and eat and go home. Start a low fat diet. If able to tolerate will D/C to home and have her follow up in 2 weeks in the office Subjective Subjective Interval history since last seen: Mrs Avila is doing well. She has no abdominal pain. No N/V. Her labs are WNL. US done today and reviewed. Gallstones noted, mild gallbladder wall thickening. No biliary dilatation Exam Resp Effort & Inspection: normal respiratory effort Auscultation: clear to auscultation bilaterally GI Inspection: normal to inspection Palpation: soft, no hepatosplenomegaly and nontender Objective Last Vital Signs Temp 98.4 F 07/07/21 08:34 Pulse 43 L 07/07/21 08:34 Resp 16 07/07/21 08:34 BP 145/75 H 07/07/21 08:34 Pulse Ox 96 07/07/21 08:34 Laboratory Results - last 24 hr 07/07/21 07/07/21 06:40 06:40 WBC 6.54 RBC 4.10 Hgb 12.9 Hct 39.2 MCV 96 H MCH 31.5 MCHC 32.9 RDW 12.9 Plt Count 230 MPV 9.1 Immature Gran % 0.3 Neutrophils % 57.1 Lymphocytes % 30.6 Monocytes % 8.0 Eosinophils % 3.4 Basophils % 0.6 Nucleated RBC % 0.0 Absolute Neutrophils 3.74 Absolute Lymphocytes 2.00 Absolute Monocytes 0.52 Absolute Eosinophils 0.22 Absolute Basophils 0.04 Sodium 145 Potassium 3.6 Chloride 111 H Carbon Dioxide 25.1 Anion Gap 8.9 BUN 9 Creatinine 0.7 Estimated GFR/1.73 m2 >= 60.00 Glucose 100 Calcium 8.7 Phosphorus 3.6 Magnesium 2.4 Total Bilirubin 1.3 H Conjugated Bilirubin 0.3 H AST 33 ALT 50 Alkaline Phosphatase 64 Total Protein 5.7 L Albumin 3.0 L Lipase 162
--- NOTE | 2021-07-07 15:37 | DSE_ITS ---
Date of service: 07/07/21 Time of Service: 14:37 DS: Diagnosis Discharge Diagnosis (1) Acute gallstone pancreatitis: Status: Acute Discharge Plan Disposition Patient Disposition: HOME Condition: Stable Discharge Details Reason For Visit: Gallstone Pancreatitis Admit Date/Time: 07/06/21 03:04 Admit Provider: Jess Peng Attending Provider: Jess Peng [facility] Course: Mrs Austin Hudson is a pleasant 76 year old female admitted with gallstone pancreatitis. Lipase is normal today and she has no pain. US showed some mild gallbladder wall thickening, ? mild fluid. Biliary system was normal in size. There are stones in the gallbladder. Discussed with patient that we would like to get her home and have her inflammation come down first prior to surgery if possible. She was able to tolerate a low fat diet. Will d/c to home with f/u appt in 2-3 weeks at which time we can discuss Lap. Halle Discussed with patient risk of going home prior to Cholecystectomy is recurrence of the pancreatitis or developing cholecystitis and an infection. Risk of doing Lap halle now is needing to do an open procedure due to inflammation. Home Meds and New Rx's Prescriptions: Continued lisinopril 10 mg tablet 20 mg PO DAILY Metamucil 3.4 gram/5.4 gram powder 1 tbsp PO DAILY Rx Instructions: mix into at least 8 oz of water or juice before administering acetaminophen [Arthritis Pain Relief (acetam)] 650 MG tablet 2 tab PO BID atorvastatin 40 mg tablet 40 mg PO QPM Qty: 90 4RF famotidine 20 mg tablet 20 mg PO QHS Qty: 180 4RF sucralfate [Carafate] 1 gram tablet 1 g PO BID Qty: 60 0RF Discharge Instructions Instructions: Pancreatitis (DC), Gallstones (DC), Low Fat Diet (DC) Additional Instructions: Activity at Home after surgery: 1. As tolerated Diet, Nutrition, & wound healin. Avoid alcohol 2. Make sure to eat plenty of lean protein (meat, fish, eggs, cottage cheese, beans) 3. Eat a variety of fruits and vegetables. Eat plenty of high fiber foods to avoid constipation. 4. Drink plenty of liquids to stay hydrated and avoid constipation Pain Medications: 1. Tylenol 650mg every 6 hours as needed and Ibuprofen 600 mg every 6 hours as needed. You may alternate between the 2 medications every 3 hours For Constipation: 1. Take Milk of Magnesia or MiraLax as needed for constipation Please call our office if you develop: 1. Fevers >101.5 2. Nausea or Vomiting 3. Worsening pain If after hours please call the Hospital at and ask to speak to the on-call surgeon Referrals: Tala Feliz MD [ [facility] STAFF PHYSICIAN] - 07/25/21 8:30 am Activity:: Activity as Tolerated Equipment/Supplies:: No Equipment Needed Diet:: low fat Discharge Orders Discharge Orders: Discharge Order (Routine); Ordered 07/07/21 Ordered By: Tala Feliz DS: Summary Time Spent with Patient providing and/or coordinating discharge services: Less than 30 minutes Status at Discharge Functional status at discharge: independent ambulation Overall status at discharge: patient is back to baseline Mental Status: mental status grossly normal Speech and Movement: speech and movement normal Mood: congruent mood Affect: normal affect Exam Psych Mental Status: mental status grossly normal Speech and Movement: speech and movement normal Mood: congruent mood Affect: normal affect DS: Data Vitals/I&O Vitals and I&O: Vital Signs Temperature 98.4 F 07/07/21 08:34 Temperature Source Temporal Artery Scan 07/07/21 08:34 Pulse 43 L 07/07/21 08:34 Pulse Rhythm Regular 07/07/21 13:12 Pulse 71 07/06/21 00:50 Respiratory Rate 16 07/07/21 08:34 Respiratory Effort Non-Labored 07/07/21 13:12 Respiratory Depth Normal 07/07/21 13:12 Respiratory Pattern Normal 07/07/21 13:12 Blood Pressure 145/75 H 07/07/21 08:34 Blood Pressure Mean 69 07/06/21 00:01 Blood Pressure Position Sitting 07/05/21 23:00 Pulse Oximetry 96 07/07/21 08:34 Oxygen Delivery Method Room Air 07/07/21 08:34 Oxygen Flow Rate 0 07/07/21 08:34 Pain Level 0 07/07/21 08:34 Intake & Output 07/06/21 07/07/21 07/07/21 23:59 11:59 23:59 Intake Total 2069 1130 / 1130 Output Total 1000 / 1000 Balance 2069 130 / 130 Intake: IV 1250 / 2352 1130 / 1130 Oral 820 / 820 Output: Urine 1000 / 1000 Other: Urine Color Yellow Urine Appearance Clear Urine Odor Normal Comment per patient she has been up and to the bathroom Voiding Methods Toilet Data Completed and Pending Labs on day of discharge: Labs from last 24 hours 07/07/21 07/07/21 06:40 06:40 WBC 6.54 RBC 4.10 Hgb 12.9 Hct 39.2 MCV 96 H MCH 31.5 MCHC 32.9 RDW 12.9 Plt Count 230 MPV 9.1 Immature Gran % 0.3 Neutrophils % 57.1 Lymphocytes % 30.6 Monocytes % 8.0 Eosinophils % 3.4 Basophils % 0.6 Nucleated RBC % 0.0 Absolute Neutrophils 3.74 Absolute Lymphocytes 2.00 Absolute Monocytes 0.52 Absolute Eosinophils 0.22 Absolute Basophils 0.04 Sodium 145 Potassium 3.6 Chloride 111 H Carbon Dioxide 25.1 Anion Gap 8.9 BUN 9 Creatinine 0.7 Estimated GFR/1.73 m2 >= 60.00 Glucose 100 Calcium 8.7 Phosphorus 3.6 Magnesium 2.4 Total Bilirubin 1.3 H Conjugated Bilirubin 0.3 H AST 33 ALT 50 Alkaline Phosphatase 64 Total Protein 5.7 L Albumin 3.0 L Lipase 162 PFSH All Active Problems Enteritis (Acute) Acute gallstone pancreatitis (Acute) Acute calculous cholecystitis (Acute) Abdominal pain (Acute) Burning reflux (Acute) Acute cholecystitis (Acute) Acute pancreatitis (Acute) GERD (gastroesophageal reflux disease) (Chronic) Osteoarthritis (Chronic) HTN (hypertension) (Chronic) Keratolysis exfoliativa (Acute) Type 2 diabetes mellitus (Acute) Lipoma of scalp (Acute) Sebaceous cyst (Acute) Medical History Ovarian cyst Stomach ulcer (05/04/17) Family History Mother No problems noted. Father Asthma Social History Smoking/Tobacco Use Status: Never Smoking risk assessment performed?: Yes Alcohol Intake: never Drug use: Never Substance use type: does not use Pets and animals: Yes Pets and animals: cat(s) Sexually active: No Do you think of yourself as: straight/heterosexual Current gender identity: female How often do you talk on the phone with friends or family?: three or more times per week How often do you get together with friends or relatives?: decline to answer Do you belong to any clubs or organized social groups?: no Panel score (0-1 are the most socially isolated patients): 1 What type of physical activity do you participate in: none Catina/Yazidi: No preference Special catina needs: No Seatbelt use: always Drive intox or ride w/intox class a regional drivers: No Do you feel safe at home: Yes Do you feel safe in your relationship?: Yes
--- NOTE | 2021-07-07 16:16 | PDOC.CMDIS ---
- If Service Date Differs Date of service: 07/07/21 Time of Service: 16:16 LACE Index Scoring Tool - Questions: Length of Stay (in days): 1 Acuity (Admit via E.D.?): Yes Comorbidities: Diabetes w/o Complication E.D. Visits: 3 - Answers: Total Score: 8 Risk of Readmission: Low Risk Care Management Discharge Reason for Hospitalization: Gallstone pancreatitis. Discharge Plan: Mignon will return home today with no new services. Her will drive her home via private vehicle. She will follow up with her PCP and discharge plan of care. She is happy to be going home. Patient/Family Education Needs: Review discharge instructions and limitations, discussion of self care needs including ask me three.
[2021-07-07 16:49] VITALS: BP 97/60; PULSE 57; RESP 16; TEMP 36.9; O2SAT 98
== END 2021-07-07 16:20 | disposition home or self-care (01) | DRG 439 ==
LOC: ER 07-06 03:16 → MS 07-07 08:53 → ER 07-07 09:58
PROVIDERS: Admitting Provider Surgery; Emergency Provider Student in an Organized Health Care Education/Training Program; PCP Nurse Practitioner; Visit Provider Surgery
DX: K85.10 Biliary acute pancreatitis without necrosis or infection (principal); K80.00 Calculus of gallbladder with acute cholecystitis without obstruction; K52.9 Noninfective gastroenteritis and colitis, unspecified; K21.9 Gastro-esophageal reflux disease without esophagitis; I10 Essential (primary) hypertension; R74.01 Elevation of levels of liver transaminase levels; E78.5 Hyperlipidemia, unspecified; E11.9 Type 2 diabetes mellitus without complications; Z87.11 Personal history of peptic ulcer disease
CPT/HCPCS: 36415; 80048; 80053; 80076; 83690; 87635; 96361; 96365; 96367; 96375; 99222; 99238; 99285; 74176; 76700; 81003; 81015; 83735; 84100; 84484; 85025; 85610; J2405

== ENCOUNTER 2021-07-13 16:37 | Observation (INO) | payer OTHER, SELFPAY ==
[2021-07-13] VITALS (16 sets, daily range): BP systolic 80–114; BP diastolic 39–95; PULSE 74–94; RESP 14–18; TEMP 36.6–38.2; O2SAT 94–99
--- NOTE | 2021-07-13 16:45 | DI.RAD_ITS ---
Exam(s) XR PORTABLE CHEST AP EXAM: XR PORTABLE CHEST AP CLINICAL HISTORY: fatigue TECHNIQUE: 2D digital imaging was performed of the chest. One image was obtained. An AP view was ob tained. COMPARISON: CR,XR XR PORTABLE CHEST AP from 12/08/2018 FINDINGS: MEDIASTINUM: Normal. HEART: Normal. PULMONARY VASCULATURE: Normal. LUNGS: Clear. PLEURAL SPACE: No pleural effusion or pneumothorax. BONE:Within normal limits for the patient's age. OTHER FINDINGS:Normal. IMPRESSION: No acute pulmonary findings. DATA REPOSITORY: RADIATION DOSE DELIVERED:
--- NOTE | 2021-07-13 16:45 | RT.EKG_ITS ---
APPROVED REPORT Exam: Resting ECG Reason for Exam: fatigue, nausea Patient Location: E HR:88 bpm ECG Measurements Heart Rate 88 AXIS WV 167 P 58 QRSd 76 QRS 5 QT 307 T 44 QTc 371 Conclusion Sinus rhythm...normal P axis, V-rate 60- 99 sinus rhythm, left axis, low voltage, flat T waves
--- NOTE | 2021-07-13 16:53 | W.ED.GENAD ---
Discharge Plan Disposition Patient Disposition: [facility] INPATIENT Condition: Serious Discharge Details Clinical Impression: C. difficile enteritis, Acute dehydration Primary Care Provider: Qing Colunga ED Provider: Dave Huddleston Home Meds and New Rx's Prescriptions: No Action lisinopril 10 mg tablet 10 mg PO DAILY Metamucil 3.4 gram/5.4 gram powder 1 tbsp PO DAILY Rx Instructions: mix into at least 8 oz of water or juice before administering acetaminophen [Arthritis Pain Relief (acetam)] 650 MG tablet 2 tab PO BID atorvastatin 40 mg tablet 40 mg PO QPM Qty: 90 4RF famotidine 20 mg tablet 20 mg PO QHS Qty: 180 4RF Medical Decision Making 76-year-old female recent gallstone pancreatitis, history of diabetes presents with generalized fatigue, gradual onset headache, poor skin turgor dry oral mucosa, no chest pain no shortness of breath, abdomen soft nontender nondistended, multiple bowel movements today however not bloody nonmucoid. Consider dehydration likely versus electrolyte abnormality versus atypical ACS versus viral syndrome, unlikely intracranial hemorrhage stroke, lower suspicion for UTI. Screening labs, fluids close reassessment 20: 16 multiple blood pressure readings below 90 systolic, I obtained a bedside manual blood pressure reading of approximately 90/55, C. difficile positive likely contributing to dehydration and relative hypotension, patient will be started on oral antibiotics daptomycin, incidental small area of intussusception seen on CT scan, spoke with general surgery who believes that this image caught a moment of peristalsis and they will repeat an image in the morning and reassess patient. Patient is nonperitoneal resting comfortably currently will admit for hydration and oral antibiotics. HPI General Date/Time Provider Initiated Documentation: 07/13/21 16:43. HPI Narrative: 76-year-old female history of diabetes, gallstone pancreatitis, presents with generalized fatigue gradual onset headache nausea, over the past day. Denies chest pain or shortness of breath. Endorses multiple bowel movements however says they are formed nonbloody nonmucoid she has been taking Metamucil. No urinary symptomatology. Endorses improved abdominal discomfort. Is awaiting surgical intervention for what sounds like choledocholithiasis Related Data Home Medications Medication Instructions Recorded Confirmed acetaminophen 650 mg 2 tab PO BID 05/04/17 07/06/21 tablet,extended release (Arthritis Pain Relief (acetaminophen) ER) atorvastatin 40 mg tablet 40 mg PO QPM #90 tabs 09/04/20 07/13/21 famotidine 20 mg tablet 20 mg PO QHS #180 tabs 09/05/20 07/13/21 psyllium husk 3.4 gram/5.4 gram 1 tbsp PO DAILY 09/23/20 07/13/21 oral powder (Metamucil) lisinopril 10 mg tablet 10 mg PO DAILY 03/07/21 07/13/21 Previous Rx's Medication Instructions Recorded atorvastatin 40 mg tablet 40 mg PO QPM #90 tabs 09/04/20 famotidine 20 mg tablet 20 mg PO QHS #180 tabs 09/05/20 Allergies Allergy/AdvReac Type Severity Reaction Status Date / Time house dust Allergy Mild Unverified 07/13/21 16:51 weed pollen Allergy Mild Unverified 07/13/21 16:51 aspirin AdvReac Intermediate Nausea Unverified 07/13/21 16:51 tomato AdvReac Mild Skin Rash Verified 07/13/21 16:51 chocolate flavor AdvReac Verified 07/13/21 16:51 Latex, Natural Rubber AdvReac white Verified 07/13/21 16:51 bumps on hands General Stated Complaint: [facility] DONNELL: 3 Review of Systems Narrative: Review of Systems Constitutional: Fatigue Eyes: negative ENT: negative Cardiovascular: negative Respiratory: negative Gastrointestinal: Nausea : negative Musculoskeletal: negative Skin: negative Neurologic: Headache Psych: negative PFSH All Active Problems (Updated 07/13/21 @ 20:20 by Dave Huddleston MD) C. difficile enteritis (Acute) Acute dehydration (Acute) Keratolysis exfoliativa (Acute) Type 2 diabetes mellitus (Acute) Lipoma of scalp (Acute) Sebaceous cyst (Acute) Medical History Ovarian cyst Stomach ulcer (05/04/17) Family History Mother No problems noted. Father Asthma Social History Smoking/Tobacco Use Status: Never Smoking risk assessment performed?: Yes Alcohol Intake: never Drug use: Never Substance use type: does not use Pets and animals: Yes Pets and animals: cat(s) Sexually active: No Do you think of yourself as: straight/heterosexual Current gender identity: female How often do you talk on the phone with friends or family?: three or more times per week How often do you get together with friends or relatives?: decline to answer Do you belong to any clubs or organized social groups?: no Panel score (0-1 are the most socially isolated patients): 1 What type of physical activity do you participate in: none Catina/Mosque: No preference Special catina needs: No Seatbelt use: always 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 Do you feel safe at home: Yes Do you feel safe in your relationship?: Yes Exam Narrative Exam Narrative: Physical Examination General: alert, awake, cooperative, resting comfortably, no acute distress HEENT: normocephalic, atraumatic; PERRL, EOM intact, conjunctiva normal; no nasal discharge; drying of oral mucosa Neck: supple, trachea midline; full ROM Chest: normal to inspection Respiratory: normal respiratory effort, speaking in full sentences, clear to auscultation, no wheezing, rales or rhonchi Cardiac: regular rate, regular rhythm, S1S2 intact, no murmurs rubs or gallops GI: abdomen soft, non-tender, non-distended; no palpable mass or hepatosplenomegaly Skin: Poor skin turgor Neuro: AAOx3, normal speech, moving all extremities Extremities: No peripheral edema Psych: Appropriate mood and affect Course Vital Signs Vital signs: Vital Signs Temperature 36.6 C 07/13/21 16:47 Pulse 74 07/13/21 16:47 Respiratory Rate 18 07/13/21 16:47 Blood Pressure 102/53 L 07/13/21 16:47 Pulse Oximetry 94 07/13/21 16:47 Temperature 36.6 C 07/13/21 16:47 Temperature Source Temporal Artery Scan 07/13/21 16:47 Pulse 74 07/13/21 16:47 Respiratory Rate 18 07/13/21 16:47 Blood Pressure 102/53 L 07/13/21 16:47 Blood Pressure Position Supine 07/13/21 16:47 Pulse Oximetry 94 07/13/21 16:47 Oxygen Delivery Method Room Air 07/13/21 16:47 Oxygen Flow Rate 0 07/13/21 16:47
[2021-07-13 17:13] LABS: Abs Immature Grans 0.13 10^3/uL (0.0-0.06); Absolute Basophil Count 0.06 10^3/uL (0.0-0.2); Absolute Lymphocyte Count 0.59 10^3/uL (1.2-3.4); Absolute Monocyte Count 0.99 10^3/uL (0.1-0.8); Basophils % 0.3; HCT 40.4 % (36.0-46.0); HGB 13.6 g/dL (11.2-15.7); Immature Grans % 0.7; Lymphocytes % 3.1; MCH 31.7 pg (27.0-33.0); MCHC 33.7 % (32.0-36.0); MCV 94 fL (80-95); MPV 9.3 fL (8.0-11.0); Monocytes % 5.2; Neutrophils % 90.7; Platelet Count 248 10^3/uL (130-400); RBC 4.29 10^6/uL (3.93-5.22); RDW-SD 44.5 fL; WBC 19.07 10^3/uL (4.4-10.8)
[2021-07-13] MEDS: Normal Saline 1,000 ML 1000 ML IV ×2 (17:25→18:43)
[2021-07-13] MEDS: diphenhydrAMINE 50 MG/ML VIAL 25 MG IVP (17:29)
[2021-07-13] MEDS: Metoclopramide 10 MG/2 ML VIAL IVP (17:29)
[2021-07-13 17:35] LABS: ALT 57 U/L (14-59); AST 35 U/L (15-37); Albumin 3.4 g/dL (3.4-5.0); Alkaline Phosphatase 63 U/L (46-116); Anion Gap 11.8 mmol/L (3-11); BUN 13 mg/dL (7-18); Bilirubin, Total 1.4 mg/dL (0.2-1.0); CO2 22.2 mmol/L (21.0-32.0); CREATININE 0.8 mg/dL (0.55-1.02); Calcium 8.8 mg/dL (8.5-10.1); Chloride 108 mmol/L (98-107); Glucose 153 mg/dL (74-106); Lipase 60 U/L (73-393); Potassium 3.6 mmol/L (3.5-5.1); Sodium 142 mmol/L (136-145); TSH (W/Ref FT4) 0.38 uIU/mL (0.36-3.74); Total Protein 6.3 g/dL (6.4-8.2); Troponin I < 50 ng/L (<or=60)
--- NOTE | 2021-07-13 18:19 | DI.VRAD_ITS ---
PROCEDURE INFORMATION: Exam: XR Chest Exam date and time: 07/13/2021 5:37 PM Age: 76 years old Clinical indication: Other: Fatique TECHNIQUE: Imaging protocol: XR of the chest. Views: 1 view. COMPARISON: XR PORTABLE CHEST AP 12/08/2018 8:09 PM FINDINGS: Lungs: No consolidation. Pleural spaces: No pleural effusion. No pneumothorax. Heart/Mediastinum: No cardiomegaly. Bones/joints: Calcific tendinopathy of the left shoulder joint. IMPRESSION: No definite acute findings. Dictated and Authenticated by: Elio Esquivel MD. Ordering:PLESA Acosta MD
[2021-07-13 18:29] LABS: COVID-19 PCR Negative (Negative); Influenza A PCR Negative (Negative); Influenza B PCR Negative (Negative); RSV PCR Negative (Negative)
[2021-07-13 18:29] LABS: Bilirubin Negative (Negative); Blood Trace-lysed (Negative); Clarity Clear (Clear); Glucose Negative (Negative); Ketones Negative (Negative); Leukocyte Esterase Negative (Negative); Nitrite Negative (Negative); Specific Gravity >= 1.030 (1.005-1.025); Urobilinogen 0.2 EU/dL (Up TO 0.2); pH 5.5 (5-8)
[2021-07-13 18:40] LABS: Bacteria Negative HPF (Negative); C & S Indicated? No; Casts Negative LPF (Negative); Crystals Negative HPF (Negative); Epithelial Cells Rare HPF (Negative); Mucus Negative (Negative); RBC 0-2 HPF (0-2); WBC 0-2 HPF (0-5)
[2021-07-13 18:40] LABS: Source Nasopharynx
--- NOTE | 2021-07-13 19:15 | DI.CT_ITS ---
Exam(s) CT ABDOMEN PELVIS WO EXAM: CT ABDOMEN PELVIS WO CLINICAL HISTORY: recent gallstone pancreatitis. TECHNIQUE: Imaging Protocol: Axial computed tomography images with coronal and sagittal reformatted images were created and reviewed. COMPARISON: CT CT ABDOMEN PELVIS WO from 07/06/2021 FINDINGS: The examination is limited due to patient motion artifact. Lack of IV contrast does limit evaluation of the abdominal pelvic organs. ABDOMEN: Lung Bases: There is mild dependent atelectasis. Coronary artery calcifications are present. Liver: There is fatty infiltration of the liver. No measurable mass. Gallbladder and biliary tract: Cholelithiasis. Pancreas: Normal density, no abnormal calcifications or inflammatory process. Spleen: Normal. Kidneys: Normal size, contour and axis.No radiodense stones or obstructive uropathy. No masses seen. Adrenal glands: No mass is seen. Lymph nodes: Within normal limits. Abdominal Aorta: Abdominal portion non-dilated. Atherosclerosis is present. PELVIS: Bladder:Symmetric distention, no gross wall thickening. Bowel: No obstruction or bowel wall thickening. No evidence of appendicitis. There is a small hiatal hernia. There is a focal small bowel intussusception in the left upper quadrant (series 5, image 43 8). This was not present on the prior examination. No evidence of obstruction. There are few diver ticula but no evidence of acute diverticulitis. Peritoneal cavity: No ascites, collection or mesenteric inflammatory response. No free air. Reproductive organs: Within normal limits. Bones: Within normal limits. Soft Tissues: Within normal limits. IMPRESSION: 1. Cholelithiasis without CT findings to suggest acute cholecystitis. 2. Small focal small bowel intussusception without evidence of obstruction in the left upper quadrant . RADIATION DOSE DELIVERED: 969.92mGy.cm Total DLP DATA REPOSITORY: All CT scans at this facility are submitted to the National Radiology Data Registry (NRDR) Dose Index Registry (DIR) with the [employer] (ACR). RADIATION OPTIMIZATION: All CT scans at this facility use at least one of these dose optimization te chniques: automated exposure control; mA and/or kV adjustment per patient size (includes targeted exa ms where dose is matched to clinical indication); or iterative reconstruction.
--- NOTE | 2021-07-13 19:16 | NUR.NOTE ---
Nursing Note: Provider aware of low blood pressure, and has performed a manual at bedside for .
[2021-07-13 19:30] LABS: C Diff PCR Positive (Negative)
--- NOTE | 2021-07-13 20:07 | DI.VRAD_ITS ---
PROCEDURE INFORMATION: Exam: CT Abdomen And Pelvis Without Contrast Exam date and time: 07/13/2021 7:33 PM Age: 76 years old Clinical indication: Abdominal pain; Localized; Right upper quadrant (ruq); Prior surgery; Surgery date: 6+ months; Surgery type: Ovarian cyst; Patient HX: Recent gallstone pancreatitis TECHNIQUE: Imaging protocol: Computed tomography of the abdomen and pelvis without contrast. Radiation optimization: All CT scans at this facility use at least one of these dose optimization techniques: automated exposure control; mA and/or kV adjustment per patient size (includes targeted exams where dose is matched to clinical indication); or iterative reconstruction. COMPARISON: CT ABDOMEN PELVIS WO 07/06/2021 12:17 AM FINDINGS: Lungs: There is bibasilar atelectasis. Heart: There is trace pericardial effusion. Diaphragm: Small hiatal hernia. There is trace fluid in the hiatal hernia suspicious of gastroesophageal reflux. Liver: Normal. No mass. Gallbladder and bile ducts: There are layering densities in the gallbladder, probably related to cholelithiasis and/or sludge. Pancreas: Normal. No ductal dilation. Spleen: Normal. No splenomegaly. Adrenal glands: Normal. No mass. Kidneys and ureters: Mild nonspecific perirenal stranding bilaterally. Stomach and bowel: There are foci of diverticulosis in the sigmoid colon without acute inflammation. Large bowel is mostly under distended from distal transverse colon to the rectum. There is a focal small bowel to small bowel intussusception in the left upper quadrant (image 44 series 2). Appendix: No evidence of appendicitis. Intraperitoneal space: Unremarkable. No free air. No significant fluid collection. Vasculature: Unremarkable. No abdominal aortic aneurysm. Lymph nodes: Unremarkable. No enlarged lymph nodes. Urinary bladder: Unremarkable as visualized. Reproductive: Unremarkable as visualized. Bones/joints: There is moderate osteoarthritis of the right hip joint with subchondral sclerosis and cyst noted. There are ring osteophytes noted. Mild levoscoliosis of the lumbar spine centered at L1-L2. Moderate loss of disc height at L4-L5 with endplate sclerosis noted. Soft tissues: Unremarkable. IMPRESSION: 1. Cholelithiasis without acute inflammation. 2. Focal small bowel to small bowel intussusception without obstruction in the left upper quadrant. 3. Small hiatal hernia with probable mild gastroesophageal reflux. 4. Degenerative joint disease in the right hip joint. Dictated and Authenticated by: Elio Esquivel MD. Ordering:DASIA Acosta MD
[2021-07-13] MEDS: Fidaxomicin 200 MG TAB PO (20:16)
--- NOTE | 2021-07-13 20:17 | SCONE_ITS ---
Date of service: 07/14/21 Time of Service: 07:29 Assessment and Plan Assessment and plan (1) C. difficile enteritis: Status: Acute Assessment and plan: -Currently being treated; antibiotics, IVF and electrolyte replacement (2) Abnormal CT of the abdomen: Status: Acute Assessment and plan: -Likely peristaltic wave, patient refused repeat CT with PO contrast -Benign clinical exam (3) History of pancreatitis: Status: Acute Assessment and plan: -Gallstone pancreatitis, can follow up as an outpatient; has appointment on July 25 -Needs to recover from c.diff colitis prior to elective cholecystectomy -Will sign off, please call with any questions or concerns History of Present Illness Narrative: 76 year old female who was recently admitted for gallstone pancreatits and sent home to follow up as an outpatient for cholecystectomy presented to the ER complaining of nausea, headache and diarrhea. She was found to be dehydrated with a leukocytosis of 19,000 and stool positive for clostridium difficile toxin. CT of the abdomen and pelvis was done showing possible intussusception, although patient denied any abdominal discomfort at the time of the CT scan. I recommended she undergo repeat CT with PO contrast to ensure this was a wave of peristalsis and there was no true intussusception but the patient refused. She is currently admitted for dehydration in the setting of c.difficile colitis. Consults Consult date: 07/14/21 Requesting physician: Jackie Ocasio Review of Systems Constitutional Constitutional: Reports fatigue, Denies fever(s), Reports headache(s) and Reports weakness ENT Ears, Nose, Mouth, and Throat: Reports headache(s) Cardiovascular Cardiovascular: Denies chest pain and Denies dyspnea Respiratory Respiratory: Denies dyspnea Gastrointestinal Gastrointestinal: Denies abdominal pain, Reports dyspepsia, Reports loose stools, Reports nausea and Denies vomiting Neurologic Neurologic: Reports headache(s) and Reports weakness Endocrine Endocrine: Reports fatigue PFSH All Active Problems (Updated 07/14/21 @ 09:02 by Jess Peng DO) History of pancreatitis (Acute) Discharge planning issues (Acute) DVT prophylaxis (Acute) Abnormal CT of the abdomen (Acute) Sepsis (Acute) C. difficile enteritis (Acute) Acute dehydration (Acute) Keratolysis exfoliativa (Acute) Type 2 diabetes mellitus (Acute) Lipoma of scalp (Acute) Sebaceous cyst (Acute) Medical History (Updated 07/14/21 @ 09:02 by Jess Peng DO) Acute calculous cholecystitis Acute gallstone pancreatitis Burning reflux GERD (gastroesophageal reflux disease) HTN (hypertension) Osteoarthritis Ovarian cyst Prediabetes Stomach ulcer (05/04/17) Surgical History (Updated 07/13/21 @ 22:42 by Jackie Ocasio MD) S/P appendectomy S/P right oophorectomy S/P tonsillectomy S/P tubal ligation Family History (Updated 07/13/21 @ 22:44 by Jackie Ocasio MD) Mother No problems noted. Father Asthma Son Cancer prostate Granddaughter Cancer lung cancer Social History Smoking/Tobacco Use Status: Never Smoking risk assessment performed?: Yes Alcohol Intake: never Drug use: Never Substance use type: does not use Pets and animals: Yes Pets and animals: cat(s) Sexually active: No Do you think of yourself as: straight/heterosexual Current gender identity: female How often do you talk on the phone with friends or family?: three or more times per week How often do you get together with friends or relatives?: decline to answer Do you belong to any clubs or organized social groups?: no Panel score (0-1 are the most socially isolated patients): 1 What type of physical activity do you participate in: none Catina/Moravian: No preference Special catina needs: No Seatbelt use: always 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 Do you feel safe at home: Yes Do you feel safe in your relationship?: Yes Exam Const General: cooperative, healthy appearing, comfortable and no acute distress Nutritional Appearance: average body habitus Eyes General: appearance normal, both eyes and all related structures Resp Effort & Inspection: normal respiratory effort, able to speak in complete sentences, no audible wheezes and not labored Cardio Rate: regular rate Rhythm: regular rhythm GI Inspection: non-distended Palpation: soft and nontender Percussion: normal to percussion Skin General skin exam: no rashes or lesions noted Neuro General: patient alert, patient awake and patient oriented x3 Results Last Vital Signs Temp 98.6 F 07/13/21 18:25 Pulse 86 07/13/21 18:25 Resp 18 07/13/21 17:56 BP 92/39 L 07/13/21 18:25 Pulse Ox 96 07/13/21 18:25 Labs Result diagrams: 07/14/21 06:37 07/14/21 06:37 Labs: Laboratory Results - last 24 hr 07/13/21 07/13/21 07/13/21 17:04 17:04 17:45 WBC 19.07 H RBC 4.29 Hgb 13.6 Hct 40.4 MCV 94 MCH 31.7 MCHC 33.7 RDW 13.0 Plt Count 248 MPV 9.3 Immature Gran % 0.7 Neutrophils % 90.7 Lymphocytes % 3.1 Monocytes % 5.2 Eosinophils % 0.0 Basophils % 0.3 Nucleated RBC % 0.0 Absolute Neutrophils 17.30 H Absolute Lymphocytes 0.59 L Absolute Monocytes 0.99 H Absolute Eosinophils 0.00 Absolute Basophils 0.06 Sodium 142 Potassium 3.6 Chloride 108 H Carbon Dioxide 22.2 Anion Gap 11.8 H BUN 13 Creatinine 0.8 Estimated GFR/1.73 m2 >= 60.00 Glucose 153 H Calcium 8.8 Total Bilirubin 1.4 H AST 35 ALT 57 Alkaline Phosphatase 63 Troponin I < 50 Total Protein 6.3 L Albumin 3.4 Lipase 60 TSH 0.38 Urine Color Urine Clarity Urine pH Ur Specific [place] Urine Protein Urine Ketones Urine Blood Urine Nitrite Urine Bilirubin Urine Urobilinogen Ur Leukocyte Esterase Urine RBC Urine WBC Ur Epithelial Cells Urine Crystals Urine Bacteria Urine Casts Urine Mucus Ur Culture Indicated? Urine Glucose Stl C.difficile Tox PCR COVID-19 Source Nasopharynx SARS-CoV-2 (PCR) Negative Influenza Type A (PCR) Negative Influenza Type B (PCR) Negative RSV (PCR) Negative 07/13/21 07/13/21 18:15 18:15 WBC RBC Hgb Hct MCV MCH MCHC RDW Plt Count MPV Immature Gran % Neutrophils % Lymphocytes % Monocytes % Eosinophils % Basophils % Nucleated RBC % Absolute Neutrophils Absolute Lymphocytes Absolute Monocytes Absolute Eosinophils Absolute Basophils Sodium Potassium Chloride Carbon Dioxide Anion Gap BUN Creatinine Estimated GFR/1.73 m2 Glucose Calcium Total Bilirubin AST ALT Alkaline Phosphatase Troponin I Total Protein Albumin Lipase TSH Urine Color Yellow Urine Clarity Clear Urine pH 5.5 Ur Specific [place] >= 1.030 H Urine Protein Negative Urine Ketones Negative Urine Blood Trace-lysed H Urine Nitrite Negative Urine Bilirubin Negative Urine Urobilinogen 0.2 Ur Leukocyte Esterase Negative Urine RBC 0-2 Urine WBC 0-2 Ur Epithelial Cells Rare Urine Crystals Negative Urine Bacteria Negative Urine Casts Negative Urine Mucus Negative Ur Culture Indicated? No Urine Glucose Negative Stl C.difficile Tox PCR Positive A COVID-19 Source SARS-CoV-2 (PCR) Influenza Type A (PCR) Influenza Type B (PCR) RSV (PCR)
[2021-07-13 20:49] LABS: Lab Add On Test DONE
[2021-07-13 21:19] LABS: C-Reactive Protein 6.36 mg/dL (0.0-0.3)
[2021-07-13 21:48] LABS: Procalcitonin 1.3 ng/mL
--- NOTE | 2021-07-13 21:53 | HPE_ITS ---
Date of service: 07/13/21 Time of Service: 20:53 Assessment and Plan Assessment and plan (1) Sepsis: Status: Acute Assessment and plan: Due to C.Diff, present on admission. Treat with PO dificid, IV flagyl, IVF. Provide probiotics. Questran. Ok for clear liquids. (2) C. difficile enteritis: Status: Acute Assessment and plan: As above (3) Abnormal CT of the abdomen: Status: Acute Assessment and plan: Question of intussusception on non-contrast CT of the abdomen. General surgery consulted, recommends repeat CT with PO contrast, which the patient is refusing. Clinically, I do not see any evidence of intussusception. Discussed with Dr Peng - will trial clear liquids. (4) Acute dehydration: Status: Acute Assessment and plan: IVF (5) DVT prophylaxis: Status: Acute Assessment and plan: The patient is refusion SC enoxaparin. Will provide SCDs (6) Discharge planning issues: Status: Acute Assessment and plan: DNR/DNI as confirmed in conversation with the patient. COLST form on file. History of Present Illness History of Present Illness Chief Complaint: Dehydration, fatigue, multiple bowel movements Narrative: Mr Frances is a 76 year old female with h/o recent admission for gallstone pancreatitis (was admitted to the surgical service on 07/06/21 and discharged on 07/07/21), having received IV antibiotics at that time, as well as prediabetes, hypertension, hyperlipidemia, who presented to [facility] ED today c/o chills, fatigue, weakness, nausea,and frequent bowel movements since 2 am this morning. The patient adamantly denies any abdominal pain. The stools are brown, without blood, and have their usual smell. In the ED, the patient was clinically dehydrated, was borderline hypotensive, and had numerous bowel movements, testing positive for C.Diff. She was initiated on IV fluids, PO dificid, and hospitalist admission was requested. The patient is febrile, has a leucocytosis of 38.2, and her BP is now 114/58. Her imaging revealed questionable intussusception. Images were reviewed by general surgery - Dr Rucker requested a follow up CT with PO contrast to ensure that the finding is real rather than a wave of perestalsis captured on the CT, which is what it appears to be clinically as the patient does not present with any abdominal pain. The patient refused PO contrast stating that it results in her vomiting in the past. The patient refuses it even if I pretreat her with nausea medications. The patient also refuses lovenox or any shot in the abdomen, recognizing that she is at a higher risk of developing a DVT. Review of Systems All systems reviewed & are unremarkable except as noted in HPI and below PFSH All Active Problems (Updated 07/13/21 @ 22:41 by Jackie Ocasio MD) Discharge planning issues (Acute) DVT prophylaxis (Acute) Abnormal CT of the abdomen (Acute) Sepsis (Acute) C. difficile enteritis (Acute) Acute dehydration (Acute) Keratolysis exfoliativa (Acute) Type 2 diabetes mellitus (Acute) Lipoma of scalp (Acute) Sebaceous cyst (Acute) Medical History (Updated 07/13/21 @ 22:41 by Jackie Ocasio MD) Acute calculous cholecystitis Acute gallstone pancreatitis Burning reflux GERD (gastroesophageal reflux disease) HTN (hypertension) Osteoarthritis Ovarian cyst Prediabetes Stomach ulcer (05/04/17) Surgical History (Updated 07/13/21 @ 22:42 by Jackie Ocasio MD) S/P appendectomy S/P right oophorectomy S/P tonsillectomy S/P tubal ligation Family History (Updated 07/13/21 @ 22:43 by Jackie Ocasio MD) Mother No problems noted. Father Asthma Son Cancer prostate Granddaughter Cancer lung cancer Social History Smoking/Tobacco Use Status: Never Smoking risk assessment performed?: Yes Alcohol Intake: never Drug use: Never Substance use type: does not use Pets and animals: Yes Pets and animals: cat(s) Sexually active: No Do you think of yourself as: straight/heterosexual Current gender identity: female How often do you talk on the phone with friends or family?: three or more times per week How often do you get together with friends or relatives?: decline to answer Do you belong to any clubs or organized social groups?: no Panel score (0-1 are the most socially isolated patients): 1 What type of physical activity do you participate in: none Catina/Catholic: No preference Special catina needs: No Seatbelt use: always Drive intox or ride w/intox corrugated fastener driver: No Do you feel safe at home: Yes Do you feel safe in your relationship?: Yes Meds Allergies and Home Medications Allergies Allergy/AdvReac Type Severity Reaction Status Date / Time house dust Allergy Mild Unverified 07/13/21 16:51 weed pollen Allergy Mild Unverified 07/13/21 16:51 aspirin AdvReac Intermediate Nausea Unverified 07/13/21 16:51 tomato AdvReac Mild Skin Rash Verified 07/13/21 16:51 chocolate flavor AdvReac Verified 07/13/21 16:51 Latex, Natural Rubber AdvReac white Verified 07/13/21 16:51 bumps on hands Home Medications Medication Instructions Recorded Confirmed Type acetaminophen 650 mg 2 tab PO BID 05/04/17 07/06/21 History tablet,extended release (Arthritis Pain Relief (acetaminophen) ER) atorvastatin 40 mg tablet 40 mg PO QPM #90 tabs 09/04/20 07/13/21 Rx famotidine 20 mg tablet 20 mg PO QHS #180 tabs 09/05/20 07/13/21 Rx psyllium husk 3.4 gram/5.4 gram 1 tbsp PO DAILY 09/23/20 07/13/21 History oral powder (Metamucil) lisinopril 10 mg tablet 10 mg PO DAILY 03/07/21 07/13/21 History Exam Narrative Exam Narrative: General: Pleasant anxious female who does not look sick, A&Ox3, NAD Neurological: A&Ox3, no focal deficits Psychiatric: Anxious, appropriate speech pattern/content Skin: Visible skin intact HEENT: Atraumatic, normocephalic, EOMI, dry MM, clear oropharynx, no submandibular or cervical lymphadenopathy, no goiter or JVD Cardiovascular: RRR, no m/r/g Lungs: CTAB Gastrointestinal: soft, nontender, nondistended Genitourinary: deferred Extremities: no edmea BLEs, 1+ pedal pulses B, no lesions on B feet Results Imaging Additional studies: CXR: No acute pulmonary findings. CT abdomen/pelvis: 1. Cholelithiasis without acute inflammation. 2. Focal small bowel to small bowel intussusception without obstruction in the left upper quadrant. 3. Small hiatal hernia with probable mild gastroesophageal reflux. 4. Degenerative joint disease in the right hip joint. Labs Result diagrams: 07/13/21 17:04 07/13/21 17:04 Labs: Laboratory Results - last 24 hr 07/13/21 07/13/21 07/13/21 17:04 17:04 17:04 WBC 19.07 H RBC 4.29 Hgb 13.6 Hct 40.4 MCV 94 MCH 31.7 MCHC 33.7 RDW 13.0 Plt Count 248 MPV 9.3 Immature Gran % 0.7 Neutrophils % 90.7 Lymphocytes % 3.1 Monocytes % 5.2 Eosinophils % 0.0 Basophils % 0.3 Nucleated RBC % 0.0 Absolute Neutrophils 17.30 H Absolute Lymphocytes 0.59 L Absolute Monocytes 0.99 H Absolute Eosinophils 0.00 Absolute Basophils 0.06 Sodium 142 Potassium 3.6 Chloride 108 H Carbon Dioxide 22.2 Anion Gap 11.8 H BUN 13 Creatinine 0.8 Estimated GFR/1.73 m2 >= 60.00 Glucose 153 H Calcium 8.8 Total Bilirubin 1.4 H AST 35 ALT 57 Alkaline Phosphatase 63 Troponin I < 50 C-Reactive Protein Total Protein 6.3 L Albumin 3.4 Lipase 60 Procalcitonin TSH 0.38 Urine Color Urine Clarity Urine pH Ur Specific Ama Urine Protein Urine Ketones Urine Blood Urine Nitrite Urine Bilirubin Urine Urobilinogen Ur Leukocyte Esterase Urine RBC Urine WBC Ur Epithelial Cells Urine Crystals Urine Bacteria Urine Casts Urine Mucus Ur Culture Indicated? Urine Glucose Stl C.difficile Tox PCR COVID-19 Source SARS-CoV-2 (PCR) Influenza Type A (PCR) Influenza Type B (PCR) RSV (PCR) Add-On Test Request DONE 07/13/21 07/13/21 07/13/21 17:04 17:04 17:45 WBC RBC Hgb Hct MCV MCH MCHC RDW Plt Count MPV Immature Gran % Neutrophils % Lymphocytes % Monocytes % Eosinophils % Basophils % Nucleated RBC % Absolute Neutrophils Absolute Lymphocytes Absolute Monocytes Absolute Eosinophils Absolute Basophils Sodium Potassium Chloride Carbon Dioxide Anion Gap BUN Creatinine Estimated GFR/1.73 m2 Glucose Calcium Total Bilirubin AST ALT Alkaline Phosphatase Troponin I C-Reactive Protein 6.36 H Total Protein Albumin Lipase Procalcitonin 1.3 TSH Urine Color Urine Clarity Urine pH Ur Specific Ama Urine Protein Urine Ketones Urine Blood Urine Nitrite Urine Bilirubin Urine Urobilinogen Ur Leukocyte Esterase Urine RBC Urine WBC Ur Epithelial Cells Urine Crystals Urine Bacteria Urine Casts Urine Mucus Ur Culture Indicated? Urine Glucose Stl C.difficile Tox PCR COVID-19 Source Nasopharynx SARS-CoV-2 (PCR) Negative Influenza Type A (PCR) Negative Influenza Type B (PCR) Negative RSV (PCR) Negative Add-On Test Request 07/13/21 07/13/21 18:15 18:15 WBC RBC Hgb Hct MCV MCH MCHC RDW Plt Count MPV Immature Gran % Neutrophils % Lymphocytes % Monocytes % Eosinophils % Basophils % Nucleated RBC % Absolute Neutrophils Absolute Lymphocytes Absolute Monocytes Absolute Eosinophils Absolute Basophils Sodium Potassium Chloride Carbon Dioxide Anion Gap BUN Creatinine Estimated GFR/1.73 m2 Glucose Calcium Total Bilirubin AST ALT Alkaline Phosphatase Troponin I C-Reactive Protein Total Protein Albumin Lipase Procalcitonin TSH Urine Color Yellow Urine Clarity Clear Urine pH 5.5 Ur Specific Ama >= 1.030 H Urine Protein Negative Urine Ketones Negative Urine Blood Trace-lysed H Urine Nitrite Negative Urine Bilirubin Negative Urine Urobilinogen 0.2 Ur Leukocyte Esterase Negative Urine RBC 0-2 Urine WBC 0-2 Ur Epithelial Cells Rare Urine Crystals Negative Urine Bacteria Negative Urine Casts Negative Urine Mucus Negative Ur Culture Indicated? No Urine Glucose Negative Stl C.difficile Tox PCR Positive A COVID-19 Source SARS-CoV-2 (PCR) Influenza Type A (PCR) Influenza Type B (PCR) RSV (PCR) Add-On Test Request Last Vital Signs Temp 38.2 C H 07/13/21 21:40 Pulse 82 07/13/21 21:40 Resp 14 07/13/21 21:40 BP 114/58 L 07/13/21 21:40 Pulse Ox 94 07/13/21 21:40
[2021-07-13] MEDS: Acetaminophen 325 MG TAB PO (22:06)
[2021-07-13] MEDS: Lactated Ringers 1,000 ML 100 ML IV (22:07)
[2021-07-13] MEDS: metroNIDAZOLE 500 MG/100 ML BAG 100 MG IVPB (22:07)
[2021-07-13] MEDS: Famotidine 20 MG TAB PO (23:23)
[2021-07-13] MEDS: Ondansetron 4 MG/2 ML VIAL IVP (23:24)
[2021-07-14 03:35] VITALS: BP 110/52; PULSE 80; RESP 18; TEMP 37.3; O2SAT 99
[2021-07-14] MEDS: metroNIDAZOLE 500 MG/100 ML BAG 100 MG IVPB ×2 (05:29→13:35)
[2021-07-14 07:28] LABS: Abs Immature Grans 0.08 10^3/uL (0.0-0.06); Absolute Basophil Count 0.03 10^3/uL (0.0-0.2); Absolute Eosinophil Count 0.04 10^3/uL (0.0-0.7); Absolute Lymphocyte Count 1.42 10^3/uL (1.2-3.4); Absolute Neutrophil Count 11.33 10^3/uL (1.2-6.7); Basophils % 0.2; Eosinophils % 0.3; HCT 33.8 % (36.0-46.0); HGB 11.6 g/dL (11.2-15.7); Immature Grans % 0.6; Lymphocytes % 10.4; MCH 32.3 pg (27.0-33.0); MCHC 34.3 % (32.0-36.0); MCV 94 fL (80-95); MPV 9.9 fL (8.0-11.0); Monocytes % 5.8; Neutrophils % 82.7; Platelet Count 203 10^3/uL (130-400); RBC 3.59 10^6/uL (3.93-5.22); RDW 13.5 % (11.7-14.6); RDW-SD 46.4 fL
[2021-07-14 07:38] LABS: Absolute Monocyte Count 0.79 10^3/uL (0.1-0.8); C-Reactive Protein 12.92 mg/dL (0.0-0.3); Lipase 39 U/L (73-393); Magnesium 1.6 mg/dL (1.8-2.4)
[2021-07-14 07:43] LABS: INR 1.1 (0.9-1.1); Prothrombin Time 11.3 sec (9.3-11.0)
[2021-07-14 08:01] LABS: Anion Gap 7.8 mmol/L (3-11); BUN 11 mg/dL (7-18); Bilirubin, Direct 0.3 mg/dL (0.0-0.2); CO2 23.2 mmol/L (21.0-32.0); CREATININE 0.6 mg/dL (0.55-1.02); Calcium 7.9 mg/dL (8.5-10.1); Chloride 113 mmol/L (98-107); Glucose 101 mg/dL (74-106); Potassium 3.2 mmol/L (3.5-5.1); Sodium 144 mmol/L (136-145)
[2021-07-14 08:22] VITALS: BP 98/61; PULSE 76; RESP 17; TEMP 37.3; O2SAT 97
[2021-07-14] MEDS: Fidaxomicin 200 MG TAB PO ×2 (08:34→19:51)
[2021-07-14] MEDS: Cholestyramine/Aspartame PKT 1 EACH PO (09:53)
[2021-07-14] MEDS: Lactated Ringers 1,000 ML 100 ML IV ×2 (09:53→21:19)
[2021-07-14 11:55] VITALS: BP 108/65; PULSE 75; RESP 18; TEMP 37; O2SAT 96
[2021-07-14] MEDS: Potassium Chloride Liquid 20 MEQ PKT PO (13:35)
--- NOTE | 2021-07-14 13:43 | PGE_ITS ---
Date of Service Date of service: 07/14/21 Time of Service: 12:43 Assessment and Plan Assessment and plan (1) Sepsis: Status: Resolved Assessment and plan: Due to C.Diff, present on admission. Continue PO dificid, discontinue IV flagyl, continue IVF. Provide probiotics. Questran. (2) C. difficile enteritis: Status: Acute Assessment and plan: As above (3) Abnormal CT of the abdomen: Status: Ruled-out Assessment and plan: Question of intussusception on non-contrast CT of the abdomen with no suspicion . General surgery consulted and discussed with Dr Peng - tolerating trial clear liquids, will advance diet. (4) Acute dehydration: Status: Resolved Assessment and plan: will continue IVF overnight as she is still stooling then stop (5) DVT prophylaxis: Status: Acute Assessment and plan: refusing SC enoxaparin. Will provide SCDs (6) Discharge planning issues: Status: Acute Assessment and plan: DNR/DNI as confirmed in conversation with the patient. COLST form on file. plan is to discharge to home +/- home health services. discussed with DR Lees. Subjective Subjective Patient reports: no new complaints, feels better, tolerating liquids well, voiding w/o difficulty, diarrhea (decreased frequency) and afebrile; denies blood in stool or nausea Interval history since last seen: feels stronger and able to ambulate in room. Exam Const General: cooperative, comfortable and no acute distress Nutritional Appearance: average body habitus and well nourished Orientation: alert, awake and oriented x3 HENMT Head: normal to inspection, normocephalic and atraumatic Mouth: oral mucosae normal Chest Chest: normal inspection of the chest Resp Effort & Inspection: normal respiratory effort Auscultation: clear to auscultation bilaterally Cardio Rate: regular rate Rhythm: regular rhythm GI Inspection: normal to inspection Palpation: soft Auscultation: normal bowel sounds Skin General skin exam: no rashes or lesions noted Neuro General: patient alert, patient awake, patient oriented x3 and no focal motor deficits Extrem General: normal to inspection and full ROM Objective Last Vital Signs Temp 37.0 C 07/14/21 11:55 Pulse 75 07/14/21 11:55 Resp 18 07/14/21 11:55 BP 108/65 07/14/21 11:55 Pulse Ox 96 07/14/21 11:55 Laboratory Results - last 24 hr 07/13/21 07/13/21 07/13/21 17:04 17:04 17:04 WBC 19.07 H RBC 4.29 Hgb 13.6 Hct 40.4 MCV 94 MCH 31.7 MCHC 33.7 RDW 13.0 Plt Count 248 MPV 9.3 Immature Gran % 0.7 Neutrophils % 90.7 Lymphocytes % 3.1 Monocytes % 5.2 Eosinophils % 0.0 Basophils % 0.3 Nucleated RBC % 0.0 Absolute Neutrophils 17.30 H Absolute Lymphocytes 0.59 L Absolute Monocytes 0.99 H Absolute Eosinophils 0.00 Absolute Basophils 0.06 PT INR Sodium 142 Potassium 3.6 Chloride 108 H Carbon Dioxide 22.2 Anion Gap 11.8 H BUN 13 Creatinine 0.8 Estimated GFR/1.73 m2 >= 60.00 Glucose 153 H Calcium 8.8 Magnesium Total Bilirubin 1.4 H Conjugated Bilirubin AST 35 ALT 57 Alkaline Phosphatase 63 Troponin I < 50 C-Reactive Protein Total Protein 6.3 L Albumin 3.4 Lipase 60 Procalcitonin TSH 0.38 Urine Color Urine Clarity Urine pH Ur Specific [place] Urine Protein Urine Ketones Urine Blood Urine Nitrite Urine Bilirubin Urine Urobilinogen Ur Leukocyte Esterase Urine RBC Urine WBC Ur Epithelial Cells Urine Crystals Urine Bacteria Urine Casts Urine Mucus Ur Culture Indicated? Urine Glucose Stl C.difficile Tox PCR COVID-19 Source SARS-CoV-2 (PCR) Influenza Type A (PCR) Influenza Type B (PCR) RSV (PCR) Add-On Test Request DONE 07/13/21 07/13/21 07/13/21 17:04 17:04 17:45 WBC RBC Hgb Hct MCV MCH MCHC RDW Plt Count MPV Immature Gran % Neutrophils % Lymphocytes % Monocytes % Eosinophils % Basophils % Nucleated RBC % Absolute Neutrophils Absolute Lymphocytes Absolute Monocytes Absolute Eosinophils Absolute Basophils PT INR Sodium Potassium Chloride Carbon Dioxide Anion Gap BUN Creatinine Estimated GFR/1.73 m2 Glucose Calcium Magnesium Total Bilirubin Conjugated Bilirubin AST ALT Alkaline Phosphatase Troponin I C-Reactive Protein 6.36 H Total Protein Albumin Lipase Procalcitonin 1.3 TSH Urine Color Urine Clarity Urine pH Ur Specific [place] Urine Protein Urine Ketones Urine Blood Urine Nitrite Urine Bilirubin Urine Urobilinogen Ur Leukocyte Esterase Urine RBC Urine WBC Ur Epithelial Cells Urine Crystals Urine Bacteria Urine Casts Urine Mucus Ur Culture Indicated? Urine Glucose Stl C.difficile Tox PCR COVID-19 Source Nasopharynx SARS-CoV-2 (PCR) Negative Influenza Type A (PCR) Negative Influenza Type B (PCR) Negative RSV (PCR) Negative Add-On Test Request 07/13/21 07/13/21 07/14/21 18:15 18:15 06:37 WBC RBC Hgb Hct MCV MCH MCHC RDW Plt Count MPV Immature Gran % Neutrophils % Lymphocytes % Monocytes % Eosinophils % Basophils % Nucleated RBC % Absolute Neutrophils Absolute Lymphocytes Absolute Monocytes Absolute Eosinophils Absolute Basophils PT INR Sodium Potassium Chloride Carbon Dioxide Anion Gap BUN Creatinine Estimated GFR/1.73 m2 Glucose Calcium Magnesium 1.6 L Total Bilirubin Conjugated Bilirubin AST ALT Alkaline Phosphatase Troponin I C-Reactive Protein 12.92 H Total Protein Albumin Lipase 39 Procalcitonin TSH Urine Color Yellow Urine Clarity Clear Urine pH 5.5 Ur Specific [place] >= 1.030 H Urine Protein Negative Urine Ketones Negative Urine Blood Trace-lysed H Urine Nitrite Negative Urine Bilirubin Negative Urine Urobilinogen 0.2 Ur Leukocyte Esterase Negative Urine RBC 0-2 Urine WBC 0-2 Ur Epithelial Cells Rare Urine Crystals Negative Urine Bacteria Negative Urine Casts Negative Urine Mucus Negative Ur Culture Indicated? No Urine Glucose Negative Stl C.difficile Tox PCR Positive A COVID-19 Source SARS-CoV-2 (PCR) Influenza Type A (PCR) Influenza Type B (PCR) RSV (PCR) Add-On Test Request 07/14/21 07/14/21 07/14/21 06:37 06:37 06:37 WBC 13.70 H RBC 3.59 L Hgb 11.6 D Hct 33.8 L MCV 94 MCH 32.3 MCHC 34.3 RDW 13.5 Plt Count 203 MPV 9.9 Immature Gran % 0.6 Neutrophils % 82.7 Lymphocytes % 10.4 Monocytes % 5.8 Eosinophils % 0.3 Basophils % 0.2 Nucleated RBC % 0.0 Absolute Neutrophils 11.33 H Absolute Lymphocytes 1.42 Absolute Monocytes 0.79 Absolute Eosinophils 0.04 Absolute Basophils 0.03 PT 11.3 H INR 1.1 Sodium 144 Potassium 3.2 L Chloride 113 H Carbon Dioxide 23.2 Anion Gap 7.8 BUN 11 Creatinine 0.6 Estimated GFR/1.73 m2 >= 60.00 Glucose 101 Calcium 7.9 L Magnesium Total Bilirubin Conjugated Bilirubin 0.3 H AST ALT Alkaline Phosphatase Troponin I C-Reactive Protein Total Protein Albumin Lipase Procalcitonin TSH Urine Color Urine Clarity Urine pH Ur Specific [place] Urine Protein Urine Ketones Urine Blood Urine Nitrite Urine Bilirubin Urine Urobilinogen Ur Leukocyte Esterase Urine RBC Urine WBC Ur Epithelial Cells Urine Crystals Urine Bacteria Urine Casts Urine Mucus Ur Culture Indicated? Urine Glucose Stl C.difficile Tox PCR COVID-19 Source SARS-CoV-2 (PCR) Influenza Type A (PCR) Influenza Type B (PCR) RSV (PCR) Add-On Test Request
[2021-07-14 15:12] VITALS: BP 106/60; PULSE 63; RESP 18; TEMP 36.8; O2SAT 97
[2021-07-14] MEDS: Potassium Chloride 20 MEQ TABCR PO ×2 (18:03→19:51)
[2021-07-14] MEDS: Atorvastatin 40 MG TAB PO (19:51)
[2021-07-14 19:53] VITALS: BP 107/63; PULSE 68; RESP 18; TEMP 37; O2SAT 97
[2021-07-14] MEDS: Famotidine 20 MG TAB PO (21:17)
[2021-07-14 23:43] VITALS: BP 122/75; PULSE 64; RESP 18; TEMP 36.8; O2SAT 96
[2021-07-15 03:32] VITALS: BP 112/71; PULSE 75; RESP 18; TEMP 37.1; O2SAT 97
[2021-07-15 06:34] LABS: Anion Gap 7.1 mmol/L (3-11); BUN 9 mg/dL (7-18); CO2 24.9 mmol/L (21.0-32.0); CREATININE 0.6 mg/dL (0.55-1.02); Calcium 8.2 mg/dL (8.5-10.1); Chloride 110 mmol/L (98-107); Glucose 100 mg/dL (74-106); Potassium 3.9 mmol/L (3.5-5.1); Sodium 142 mmol/L (136-145)
[2021-07-15 08:10] VITALS: BP 139/69; PULSE 54; RESP 16; TEMP 36.4; O2SAT 96
[2021-07-15] MEDS: Fidaxomicin 200 MG TAB PO (09:01)
[2021-07-15] MEDS: Potassium Chloride 20 MEQ TABCR PO (09:01)
--- NOTE | 2021-07-15 09:51 | INITIAL_ITS ---
- If Service Date Differs Date of service: 07/15/21 Time of Service: 09:51 Care Management Initial Assess REASON FOR HOSPITALIZATION:: sepsis PAST MEDICAL HISTORY/PAST SURGICAL HISTORY:: All Active Problems (Updated 07/13/21 @ 22:41 by Jackie Ocasio MD). Discharge planning issues (Acute). DVT prophylaxis (Acute). Abnormal CT of the abdomen (Acute). Sepsis (Acute). C. difficile enteritis (Acute). Acute dehydration (Acute). Keratolysis exfoliativa (Acute). Type 2 diabetes mellitus (Acute). Lipoma of scalp (Acute). Sebaceous cyst (Acute). Medical History (Updated 07/13/21 @ 22:41 by Jackie Ocasio MD). Acute calculous cholecystitis. Acute gallstone pancreatitis. Burning reflux. GERD (gastroesophageal reflux disease). HTN (hypertension). Osteoarthritis. Ovarian cyst. Prediabetes. Stomach ulcer (05/04/17). Surgical History (Updated 07/13/21 @ 22:42 by Jackie Ocasio MD). S/P appendectomy. S/P right oophorectomy. S/P tonsillectomy. S/P tubal ligation PREVIOUS FUNCTIONAL STATUS/SOCIAL/FAMILY SUPPORTS:: Mignon lives in [place] with her , Riaz. Mignon has three adult children but says she has little to no contact with two of them. She explains their father many years ago and she remarried. Her daughter and youngest son reportedly do not care for her current . 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 She enjoys ceramics and number painting and says she [place] lots of supportive friends [place]. Mignon is independent with her ADLs at baseline. CURRENT FUNCTIONAL STATUS:: Mignon was sitting up in bed when RAYNE met with her. She informed RAYNE that she will be going home today and does not need any new services. ADVANCE DIRECTIVES:: On file; Riaz Hudson Jr. is appointed as Health Care Agent. Has patient been provided with info about the portal/API?: Yes Did the patient sign up for the portal?: No CODE STATUS:: DNR/DNI INSURANCE COVERAGE / FINANCIAL ISSUES:: [facility] [employer] [place] and [facility]. CURRENT HOME/COMMUNITY SERVICES/EQUIPMENT:: Her home has a ramp and an electric scooter is on order for her . PRIMARY CARE PHYSICIAN:: Qing Colunga, Ph.D., ANP ([facility]). POTENTIAL DISCHARGE NEEDS:: Follow up appointments with PCP and surgeon. PATIENT/FAMILY EDUCATION NEEDS:: Review of discharge instructions, medications, limitations, activity; discuss Ask Me Three and self management. TRANSPORTATION:: via private vehicle with PLAN:: Mignon will discharge home with no services. She will follow up with her PCP, surgeon, and plan of care as directed. She will be transported home via private vehicle by her .
--- NOTE | 2021-07-15 09:55 | PT.INIE ---
Date of service: 07/15/21 Time of Service: 09:55 PT Notes Visit Reasons: Sepsis due to C.diff colitis, dehydration Physical Therapy Inpatient Initial Evaluation Date: 07/15/2021 Referring Doctor: Taniya Grossman NP PT Orders: PT CONSULT: Eval/Treat Precautions: Fall. Standard. Activity as tolerated. Patient Profile/Admitting Diagnosis: Mignon is a 76-year-old female who presented again 2021 due to generalized fatigue, gradual onset headache, poor skin turgor, and multiple bowel movements. Patient states still with C. difficile enteritis, sepsis, abnormal CT of abdomen, and acute dehydration. PMHX: All Active Problems?(Updated 07/13/21 @ 22:41 by Jackie Ocasio MD) Discharge planning issues (Acute) DVT prophylaxis (Acute) Abnormal CT of the abdomen (Acute) Sepsis (Acute) C. difficile enteritis (Acute) Acute dehydration (Acute) Keratolysis exfoliativa (Acute) Type 2 diabetes mellitus (Acute) Lipoma of scalp (Acute) Sebaceous cyst (Acute) Medical History?(Updated 07/13/21 @ 22:41 by Jackie Ocasio MD) Acute calculous cholecystitis Acute gallstone pancreatitis Burning reflux GERD (gastroesophageal reflux disease) HTN (hypertension) Osteoarthritis Ovarian cyst Prediabetes Stomach ulcer (05/04/17) Surgical History?(Updated 07/13/21 @ 22:42 by Jackie Ocasio MD) S/P appendectomy S/P right oophorectomy S/P tonsillectomy S/P tubal ligation Social History/Home Situation: Lives with in a mobile home with 4 steps to enter with rails of both sides. Independent with all aspects of ADLs prior to admission. Does not use any assistive ambulatory device nor adaptive equipment. Equipment Owned/DME: None Subjective: Feels a lot better than on admission. Happy that she is back on regualr diet as of last night. Denies headache and abdominal pain. Objective: General Observation: IV access in R UE. Mental Status: Alert and oriented as to person, place, time, and purpose. Able to pay attention, focus, and respond appropriately. Pain: Denies Vital Signs: WNL as closely monitored by nursing staff ROM: Right Upper Extremity: Shoulder Flexion WFL. Shoulder abduction WFL. Elbow flexion WFL. Wrist flexion WFL. Functional opening and closing of hand WFL. Left Upper Extremity: Shoulder Flexion WFL. Shoulder abduction WFL. Elbow flexion WFL. Wrist flexion WFL. Functional opening and closing of hand WFL. Right Lower Extremity: Hip flexion WFL. Hip abduction WFL. Knee flexion WFL. Ankle dorsiflexion WFL. Ankle plantarflexion WFL. Left Lower Extremity: Hip flexion WFL. Hip abduction WFL. Knee flexion WFL. Ankle dorsiflexion WFL. Ankle plantarflexion WFL. Strength: Right Upper Extremity: Shoulder flexors 4/5. Shoulder abductors 4/5. Elbow flexors 5/5. Elbow extensors 5/5. Director Of Manufacturing Operations strong. Left Upper Extremity: Shoulder flexors 4/5. Shoulder abductors 4/5. Elbow flexors 5/5. Elbow extensors 5/5. Director Of Manufacturing Operations strong. Right Lower Extremity: Hip flexors 4/5. Hip abductors 4/5. Knee flexors 5/5. Knee extensors 5/5. Ankle dorsiflexors 4/5. Ankle plantarflexors 5/5. Left Lower Extremity: Hip flexors 4/5. Hip abductors 4/5. Knee flexors 5/5. Knee extensors 5/5. Ankle dorsiflexors 4/5. Ankle plantarflexors 5/5. Bed Mobility/Transfers: Rolling with independent Supine to sit independent Sit to supine independent Sit to stand independent Stand to sit independent Bed to reclining chair independent Reclining chair to bed independent Gait: Instructed patient with level surface ambulation of 300 feet requiring independent. gait pattern unremarkable. Denies headache, lightheadedness, and chest pain. Balance: Static Sitting: Normal Dynamic Sitting: Normal Static Standing: Fair Dynamic Standing: Fair Special Tests: Mobility Limitations Standardized Measure [facility] AM-PAC 6 clicks Basic Mobility Inpatient Short Form: Raw Score: 24 CMS Score: 0% deficit Informed Consent/Education: Patient was instructed in purpose of PT consult and plan of care. Agreeable to proceed with established PT POC to achieve personal goals. Assessment: Patient is independent with all aspects of ADLs without an assistive device. No skilled services needed at this time. Patient is assessed as a 79041 moderate complexity based on the following: History: 76-year-old male with past medical history as indicated above Examination: Demonstrable impairment in strength, balance, and mobility level with underlying impairments and functional limitations as exhibited above as well as deficit score of 0% utilizing the [facility] Mobility Inpatient Short Form Presentation: Stable Decision Makin moderate complexity Goals: N/A. PT evaluation only. Plan of Care/Treatment Plan: N/A. PT evaluation only. DISCHARGE RECOMMENDATIONS: Home when medically cleared by hospitalist. TREATMENT CODE/TIME: 30623 x 15 beginning at 9:55 AM. Thank you for the opportunity to participate in the care of this patient. Arminda James PT, DPT, CLT [facility] [place], [place]
--- NOTE | 2021-07-15 10:55 | DSE_ITS ---
Date of service: 07/15/21 Time of Service: 09:55 DS: Diagnosis Discharge Diagnosis (1) Sepsis: Status: Resolved (2) C. difficile enteritis: Status: Acute (3) Abnormal CT of the abdomen: Status: Ruled-out (4) Acute dehydration: Status: Resolved Discharge Plan Disposition Patient Disposition: HOME W/HOME HEALTH SERVICE Condition: Improving Discharge Details Reason For Visit: Sepsis due to C.diff colitis, dehydration Admit Date/Time: 07/13/21 20:39 Admit Provider: Jackie Ocasio Attending Provider: Jackie Ocasio Primary Care Provider: [facility] Course Hospital Course: This is a 76 year old female with recent admission for gallstone pancreatitis (was admitted to the surgical service on 07/06/21 and discharged on 07/07/21), having received IV antibiotics at that time, as well as prediabetes, hypertension, hyperlipidemia, who presented to [facility] ED with chills, fatigue, weakness, nausea,and frequent bowel movements. work up in the ED, consistent with clinically dehydration and stool testing positive for C.Diff.?She was admitted to hospitalist services for IV hydration and further management. she was started on dificid in the ED, IV flagyl was added but discontinued. Her imaging revealed questionable intussusception. Images were reviewed by general surgery - Dr Rucker who initially recommended CT scan with PO contrast which patient refused. after further review, thought to be unlikely. her diet was advanced and she tolerated it well. she had no abdominal pain, frequent stooling resolved and she was hemodynamically stable and ready for discharge to home with home health services. discharge discussed with Dr Lees. Home Meds and New Rx's Prescriptions: New Dificid 200 mg Tablet 200 mg PO BID Qty: 16 0RF Continued lisinopril 10 mg tablet 10 mg PO DAILY Metamucil 3.4 gram/5.4 gram powder 1 tbsp PO DAILY Rx Instructions: mix into at least 8 oz of water or juice before administering acetaminophen [Arthritis Pain Relief (acetam)] 650 MG tablet 2 tab PO BID atorvastatin 40 mg tablet 40 mg PO QPM Qty: 90 4RF famotidine 20 mg tablet 20 mg PO QHS Qty: 180 4RF Discharge Instructions Instructions: C. Diff (Clostridioides Difficile) Infection (DC) Additional Instructions: drink 6-8 glasses of water daily to stay well hydrated. Stand Alone Forms: Nursing Discharge Form Referrals: Qing Colunga NP [Primary Care Provider] - 07/17/21 4:20 pm Activity:: Activity as Tolerated Equipment/Supplies:: No Equipment Needed Diet:: As Tolerated Discharge Orders Discharge Orders: Discharge Order (Routine); Ordered 07/15/21 Ordered By: Taniya Grossman Discharge Data Discharge Date/Time-TO BE ENTERED AT DEPARTURE: 07/15/21 12:58 DS: Summary Time Spent with Patient providing and/or coordinating discharge services: Greater than 30 minutes Status at Discharge Functional status at discharge: uses cane/walker Overall status at discharge: patient is progressing back to baseline Mental Status: mental status grossly normal Speech and Movement: speech and movement normal Mood: congruent mood Affect: normal affect Exam Psych Mental Status: mental status grossly normal Speech and Movement: speech and movement normal Mood: congruent mood Affect: normal affect DS: Data Vitals/I&O Vitals and I&O: Vital Signs Temperature 36.4 C L 07/15/21 08:10 Temperature Source Tympanic 07/15/21 08:10 Pulse 54 L 07/15/21 08:10 Pulse Rhythm Regular 07/15/21 09:25 Pulse 80 07/13/21 17:31 Respiratory Rate 16 07/15/21 08:10 Respiratory Effort Non-Labored 07/15/21 09:25 Respiratory Depth Normal 07/15/21 09:25 Respiratory Pattern Normal 07/15/21 09:25 Blood Pressure 139/69 07/15/21 08:10 Blood Pressure Mean 61 07/13/21 17:30 Blood Pressure Position Supine 07/13/21 16:47 Pulse Oximetry 96 07/15/21 08:10 Oxygen Delivery Method Room Air 07/15/21 08:10 Oxygen Flow Rate 0 07/15/21 08:10 Pain Level 0 07/15/21 03:32 Intake & Output 07/14/21 07/14/21 07/15/21 11:59 23:59 11:59 Intake Total 2100 / 3460 1360 / 3460 905 / 905 Output Total 800 / 1350 550 / 1350 700 / 700 Balance 1300 / 2110 810 / 2110 205 / 205 Intake: IV 2100 / 3200 1100 / 3200 905 / 905 Oral 260 / 260 Output: Urine 800 / 1350 550 / 1350 700 / 700 Other: Urine Color Straw Straw Straw Urine Appearance Clear Clear Clear Urine Odor Normal None None Comment mix with stool Stool Occult Blood Negative Stool Size Moderate Large Smear Stool Characteristics Soft Liquid Liquid Liquid Green Voiding Methods Toilet Toilet Toilet Data Completed and Pending Labs on day of discharge: Labs from last 24 hours 07/15/21 07/13/21 06:12 18:15 Sodium 142 Potassium 3.9 Chloride 110 H Carbon Dioxide 24.9 Anion Gap 7.1 BUN 9 Creatinine 0.6 Estimated GFR/1.73 m2 >= 60.00 Glucose 100 Calcium 8.2 L Stool Description Cancelled Stool Campylobacter PCR Pending Stool Salmonella PCR Pending Stool Shigella PCR Pending Stool Ova & Parasites Cancelled Shiga Toxin (PCR) Pending Preliminary micro results at discharge 07/13/21 22:50 Blood Culture - Preliminary Blood NO GROWTH 24 HOURS 07/13/21 22:30 Blood Culture - Preliminary Blood NO GROWTH 24 HOURS PFSH All Active Problems (Updated 07/14/21 @ 13:47 by Taniya Grossman NP) History of pancreatitis (Acute) Discharge planning issues (Acute) DVT prophylaxis (Acute) C. difficile enteritis (Acute) Keratolysis exfoliativa (Acute) Type 2 diabetes mellitus (Acute) Lipoma of scalp (Acute) Sebaceous cyst (Acute) Medical History (Updated 07/14/21 @ 13:47 by Taniya rGossman NP) Acute calculous cholecystitis Acute gallstone pancreatitis Burning reflux GERD (gastroesophageal reflux disease) HTN (hypertension) Osteoarthritis Ovarian cyst Prediabetes Stomach ulcer (05/04/17) Surgical History (Updated 07/13/21 @ 22:42 by Jackie Ocasio MD) S/P appendectomy S/P right oophorectomy S/P tonsillectomy S/P tubal ligation Family History (Updated 07/13/21 @ 22:44 by Jackie Ocasio MD) Mother No problems noted. Father Asthma Son Cancer prostate Granddaughter Cancer lung cancer Social History Smoking/Tobacco Use Status: Never Smoking risk assessment performed?: Yes Alcohol Intake: never Drug use: Never Substance use type: does not use Pets and animals: Yes Pets and animals: cat(s) Sexually active: No Do you think of yourself as: straight/heterosexual Current gender identity: female How often do you talk on the phone with friends or family?: three or more times per week How often do you get together with friends or relatives?: decline to answer Do you belong to any clubs or organized social groups?: no Panel score (0-1 are the most socially isolated patients): 1 What type of physical activity do you participate in: none Catina/Sabianism: No preference Special catina needs: No Seatbelt use: always Drive 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
[2021-07-15 12:07] VITALS: BP 142/60; PULSE 55; RESP 16; TEMP 36.3; O2SAT 98
--- NOTE | 2021-07-15 14:17 | PDOC.CMDIS ---
- If Service Date Differs Date of service: 07/15/21 Time of Service: 14:17 LACE Index Scoring Tool - Questions: Length of Stay (in days): 2 Acuity (Admit via E.D.?): Yes Comorbidities: Diabetes w/o Complication E.D. Visits: 4 - Answers: Total Score: 10 Risk of Readmission: High Risk Care Management Discharge Reason for Hospitalization: sepsis Discharge Plan: Mignon will discharge home with no services. She will follow up with her PCP, surgeon, and plan of care as directed. She will be transported home via private vehicle by her . Patient/Family Education Needs: Review of discharge instructions, medications, limitations, activity; discuss Ask Me Three and self management.
--- NOTE | 2021-07-15 17:31 | PDOC.HHF2F_ITS ---
Home Health Certification Home Health Certification: 1. Encounter Date and Reason I certify that Mignon Alexander was seen by Taniya Grossman on 07/15/21 and that I had a [id number] encounter with this patient that meets the physician face to face encounter requirements. 2. Clinical Findings Supporting Skilled Need and Homebound Status I certify that home health services are medically necessary, include either intermittent jail and/or physical/speech therapy, and that this patie nt is homebound in that absences from the home require considerable and taxing effort and are infrequent or of short duration, or are attributable to the need to receive medical care. [X] (a) Attached documentation from encounter provides clinical findings supporting skilled need and homebound status (including what assistance patient requires to leave the home). The encounter with the patient was in whole, or in part, for the following medical condition, which is the primary reason for home health care: Sepsis due to C.diff colitis, dehydration Senior Care: routine nursing for medication Physical and Occupational Therapy: routine evaluation, home safety, and treatment Homebound: unable to safely leave the house unattended due to decreased strength and endurance 3. Certification and Authentication I certify that I composed the above information based on my clinical judgment relating to this patient's medical condition and, if applicable, clinical findings communicated to me by the NPP or inpatient physician who performed the Home Health Referral. All further orders will be obtained through _Qing Colunga _(Community Based Physician - PCP)
[2021-07-16 11:33] LABS: Campylobacter PCR Negative (Negative); Salmonella PCR Negative (Negative); Shiga Toxin PCR Negative (Negative); Shigella/Enteroinvasive Ecoli Negative (Negative)
== END 2021-07-15 12:58 | disposition home health service (06) | DRG 872 ==
LOC: ER 20:52 → MS 22:17
PROVIDERS: Nurse Practitioner Acute Care; Surgery; Admitting Provider Internal Medicine; Emergency Provider Emergency Medicine; PCP Nurse Practitioner; Visit Provider Internal Medicine
DX: A41.4 Sepsis due to anaerobes (principal); A04.72 Enterocolitis due to Clostridium difficile, not specified as recurrent; E11.9 Type 2 diabetes mellitus without complications; I10 Essential (primary) hypertension; E86.0 Dehydration; I95.9 Hypotension, unspecified; K80.20 Calculus of gallbladder without cholecystitis without obstruction; E78.5 Hyperlipidemia, unspecified; Z66 Do not resuscitate; Z87.11 Personal history of peptic ulcer disease
CPT/HCPCS: 36410; 36415; 80048; 80053; 83690; 84145; 87040; 87493; 87505; 87637; 93005; 96361; 96365; 96366; 96374; 96375; 97162; 99213; 99214; 99285; J1650; 71045; 74176; 81003; 81015; 82248; 83735; 84443; 84484; 85025; 85610; 86140; 87177; 93010; 99217; 99220; 99223; 99226; 99233; 99239; J1200; J2405; J2765

== ENCOUNTER → 2021-07-29 08:15 | Outpatient (BNVA) | payer OTHER, SELFPAY | PROVIDERS: PCP Nurse Practitioner; Referring Provider Nurse Practitioner; Visit Provider Surgery | DX: K85.10 Biliary acute pancreatitis without necrosis or infection (principal) | CPT/HCPCS: 99212; 99213 ==

== ENCOUNTER 2021-09-10 03:47 | Outpatient (CLI) | payer OTHER, SELFPAY ==
[2021-09-10 12:32] LABS: Hemoglobin A1C 5.9 % (<5.7)
[2021-09-10 12:33] LABS: Anion Gap 7.6 mmol/L (3-11); BUN 20 mg/dL (7-18); CO2 27.4 mmol/L (21.0-32.0); CREATININE 0.7 mg/dL (0.55-1.02); Calcium 9.1 mg/dL (8.5-10.1); Calculated LDL 49 mg/dL (<100); Chloride 105 mmol/L (98-107); Cholesterol 125 mg/dL (<200); Glucose 95 mg/dL (74-106); HDL Cholesterol 57 mg/dL (40-60); Potassium 4.3 mmol/L (3.5-5.1); Sodium 140 mmol/L (136-145); Triglyceride 98 mg/dL (<150)
== END 2021-09-10 03:48 | disposition home or self-care (01) ==
LOC: LOS 03:48
PROVIDERS: PCP Nurse Practitioner; Visit Provider Nurse Practitioner
DX: E78.5 Hyperlipidemia, unspecified (principal); I10 Essential (primary) hypertension; E11.9 Type 2 diabetes mellitus without complications
CPT/HCPCS: 36415; 80048; 80061; 83036

== ENCOUNTER 2022-05-29 01:14 | Outpatient (CLI) | payer OTHER, SELFPAY ==
[2022-05-29 12:19] LABS: Abs Immature Grans 0.01 10^3/uL (0.0-0.06); Absolute Basophil Count 0.04 10^3/uL (0.0-0.2); Absolute Eosinophil Count 0.25 10^3/uL (0.0-0.7); Absolute Lymphocyte Count 2.79 10^3/uL (1.2-3.4); Absolute Monocyte Count 0.53 10^3/uL (0.1-0.8); Absolute Neutrophil Count 3.07 10^3/uL (1.2-6.7); Basophils % 0.6; Eosinophils % 3.7; HCT 45.4 % (36.0-46.0); HGB 15.2 g/dL (11.2-15.7); Immature Grans % 0.1; Lymphocytes % 41.7; MCH 31.9 pg (27.0-33.0); MCHC 33.5 % (32.0-36.0); MCV 95 fL (80-95); MPV 9.3 fL (8.0-11.0); Monocytes % 7.9; Platelet Count 278 10^3/uL (130-400); RBC 4.77 10^6/uL (3.93-5.22); RDW 12.7 % (11.7-14.6); RDW-SD 44.6 fL; WBC 6.69 10^3/uL (4.4-10.8)
[2022-05-29 12:53] LABS: ALT 50 U/L (14-59); AST 33 U/L (15-37); Albumin 3.8 g/dL (3.4-5.0); Alkaline Phosphatase 89 U/L (46-116); Anion Gap 6.6 mmol/L (3-11); BUN 17 mg/dL (7-18); Bilirubin, Total 0.9 mg/dL (0.2-1.0); CO2 29.4 mmol/L (21.0-32.0); CREATININE 0.7 mg/dL (0.55-1.02); Calcium 9.3 mg/dL (8.5-10.1); Calculated LDL 58 mg/dL (<100); Chloride 105 mmol/L (98-107); Cholesterol 136 mg/dL (<200); Estimated GFR 89.58 (mL/min/1.73m2); Glucose 99 mg/dL (74-106); HDL Cholesterol 61 mg/dL (40-60); Potassium 3.9 mmol/L (3.5-5.1); Sodium 141 mmol/L (136-145); Triglyceride 87 mg/dL (<150)
== END 2022-05-29 01:15 | disposition home or self-care (01) ==
LOC: LOS 01:14
PROVIDERS: PCP Nurse Practitioner Family; Visit Provider Nurse Practitioner Family
DX: E78.5 Hyperlipidemia, unspecified (principal); I10 Essential (primary) hypertension; R73.03 Prediabetes; K21.9 Gastro-esophageal reflux disease without esophagitis
CPT/HCPCS: 36415; 80053; 80061; 85025

== ENCOUNTER 2023-08-11 04:50 | Observation (INO) | payer OTHER, SELFPAY ==
[2023-08-11] VITALS (30 sets, daily range): BP systolic 108–183; BP diastolic 59–98; PULSE 49–64; RESP 14–24; TEMP 36–36.6; O2SAT 95–100
--- NOTE | 2023-08-11 04:45 | RT.EKG_ITS ---
APPROVED REPORT Exam: Resting ECG Reason for Exam: severe heartburn Patient Location: E HR:52 bpm ECG Measurements Heart Rate 52 AXIS [place] 187 P 78 QRSd 90 QRS 33 QT 436 T 38 QTc 406 Conclusion Sinus bradycardia...rate< 60 Normal [place] There are no significant changes compared to prior EKG performed on 07/05/2021 at 20:18.
--- NOTE | 2023-08-11 04:58 | ED.GENADUL_ITS ---
Discharge Plan Disposition Patient Disposition: Admit to [facility] Condition: Fair Discharge Details Clinical Impression: Acute cholecystitis, Acute pancreatitis Primary Care Provider: Zaina Todd ED Provider: Orion Galdamez Meds and New Rx's Prescriptions: No Action famotidine 20 mg tablet 20 mg PO QHS Qty: 180 4RF Metamucil 3.4 gram/5.4 gram powder 1 tbsp PO DAILY Rx Instructions: mix into at least 8 oz of water or juice before administering albuterol sulfate 90 mcg/actuation HFA aerosol inhaler 2 puff inhalation Q6H PRN (Reason: shortness of breath or wheezing) Qty: 6.7 0RF Rx Instructions: 2 puffs every 6 hours as needed for cough, sob, or wheeze lisinopril 10 mg tablet 10 mg PO DAILY Qty: 90 4RF atorvastatin 40 mg tablet 40 mg PO QPM Qty: 90 4RF acetaminophen [Arthritis Pain Relief (acetam)] 650 MG tablet 2 tab PO BID HPI General Mode of arrival: wheelchair . Date/Time Provider Initiated Documentation: 08/11/23 04:58 . Limitations to Documentation: no limitations . Information obtained by: patient, RN notes reviewed and old records reviewed . HPI Narrative: Patient presents to ED with complaint of heartburn. Patient reports going to bed around 9:30 last night. She felt fine at that time. She woke up around 1 this morning with epigastric pain that she thought was heartburn. She reports not having an episode like this in some time. She took 2 of her famotidine with no relief. Pain is getting worse and now goes to the back and wraps around her abdomen. She has nausea. She had an episode of dry heaves here. She does point to the lower substernal area as well as her epigastric area. She denies any shortness of breath. She denies any recent illness. She denies any lower abdominal pain. Related Data Home Medications Medication Instructions Recorded Confirmed acetaminophen 650 mg 2 tab PO BID 05/04/17 08/11/23 tablet,extended release (Arthritis Pain Relief (acetaminophen) ER) psyllium husk 3.4 gram/5.4 gram 1 tbsp PO DAILY 09/23/20 08/11/23 oral powder (Metamucil) famotidine 20 mg tablet 20 mg PO QHS #180 tabs 09/04/21 08/11/23 albuterol sulfate 90 mcg/actuation 2 puff inhalation Q6H PRN 01/28/22 08/11/23 aerosol inhaler shortness of breath or wheezing #6.7 grams atorvastatin 40 mg tablet 40 mg PO QPM #90 tabs 09/07/22 08/11/23 lisinopril 10 mg tablet 10 mg PO DAILY #90 tabs 09/07/22 08/11/23 Previous Rx's Medication Instructions Recorded famotidine 20 mg tablet 20 mg PO QHS #180 tabs 09/04/21 albuterol sulfate 90 mcg/actuation 2 puff inhalation Q6H PRN 01/28/22 aerosol inhaler shortness of breath or wheezing #6.7 grams atorvastatin 40 mg tablet 40 mg PO QPM #90 tabs 09/07/22 lisinopril 10 mg tablet 10 mg PO DAILY #90 tabs 09/07/22 Allergies Allergy/AdvReac Type Severity Reaction Status Date / Time house dust Allergy Mild Itching Unverified 08/11/23 05:16 weed pollen Allergy Mild Unknown Unverified 08/11/23 05:16 aspirin AdvReac Intermediate Nausea Unverified 08/11/23 05:16 tomato AdvReac Mild Skin Rash Verified 08/11/23 05:16 chocolate flavor AdvReac Unknown Verified 08/11/23 05:16 Latex, Natural Rubber AdvReac white Verified 08/11/23 05:16 bumps on hands hay AdvReac Mild Other (See Uncoded 08/11/23 05:16 Comment) soap AdvReac Mild Itching Uncoded 08/11/23 05:16 General Stated Complaint: Chest Pain DONNELL: 3 Review of Systems Narrative: Per HPI Exam Narrative Exam Narrative: Const: WDWN elderly female in NAD. VS per triage. HEENT: NC/AT. Normal facial exam. Neck: Supple. Trachea midline. Lungs: Normal respiratory effort. Lungs are clear. Cor: RRR without murmur. Good radial pulses. GI: Soft/ND. Tender in the RUQ/epigastric area. Neuro: A+O x 3. Normal speech, mentation, gait. Cranial nerves II - XII grossly intact. No gross motor or sensory deficit. Ext: No C/C/E. Course Vital Signs Vital signs: Vital Signs Temperature 97.3 F L 08/11/23 04:53 Pulse 64 08/11/23 04:53 Respiratory Rate 18 08/11/23 04:53 Blood Pressure 183/98 H 08/11/23 04:53 Pulse Oximetry 97 08/11/23 04:53 Temperature 97.3 F L 08/11/23 04:53 Temperature Source Skin 08/11/23 04:53 Pulse 64 08/11/23 04:53 Respiratory Rate 18 08/11/23 04:53 Respiratory Effort Normal 08/11/23 04:58 Blood Pressure 183/98 H 08/11/23 04:53 Blood Pressure Position Sitting 08/11/23 04:53 Pulse Oximetry 97 08/11/23 04:53 Oxygen Delivery Method Room Air 08/11/23 04:53 Oxygen Flow Rate 0 08/11/23 04:53 Medical Decision Making Patient presenting to ED with epigastric abdominal pain that radiates through to the back and around her abdomen. She feels that it is heartburn. However, her past medical history includes acute cholecystitis and pancreatitis with no subsequent cholecystectomy. Her EKG is sinus bradycardia with no acute ST changes and unchanged from previous. I will check a troponin but I do not think this is ACS or cardiac related. May be acid related but I am suspicious for recurrent cholecystitis or pancreatitis. IV ordered. Fluids, morphine, ondansetron given. Laboratory studies sent. CT scan ordered. Patient's laboratory studies with normal white count and hemoglobin. Chemistries, kidney function, liver function unremarkable. AST just slightly up at 42. Lipase however is markedly elevated greater than 375. CT scan shows evidence of acute cholecystitis and pancreatitis once again. There is some evidence of biliary dilatation but again liver function does not suggest obstruction. Right upper quadrant ultrasound has been ordered. Ceftriaxone and Flagyl ordered. Patient requesting something for pain but does not want to morphine. Nausea has also returned. She is ordered for acetaminophen and prochlorperazine IV. Patient aware of diagnosis. Case discussed with surgery, Dr. Ascencio. Patient to be admitted to surgical service here for further evaluation and management. Medical Records Medical records reviewed: Yes I reviewed the patient's medical records. Medical records narrative: Previous history of acute cholecystitis, pancreatitis. Did not get her gallbladder out as recommended. Lab Data Lab results reviewed: Yes I reviewed the patient's lab results. Lab results narrative: See MDM ECG Data Attestation: I personally reviewed and interpreted this ECG (s) as follows: Prior ECG tracings: available for review Interpretation: No acute ischemic changes Quality:SDOH Health Related Social Needs: No Data to Display PFSH All Active Problems (Updated 08/11/23 @ 07:18 by Orino Galdamez MD) Acute pancreatitis (Acute) Acute cholecystitis (Acute) Sebaceous cyst (Acute) Lipoma of scalp (Acute) Medical History GERD (gastroesophageal reflux disease) Cholelithiasis Pancreatitis HTN (hypertension) Hyperlipidemia Type 2 diabetes mellitus Keratolysis exfoliativa Osteoarthritis Stomach ulcer (05/04/17) Surgical History S/P tubal ligation S/P appendectomy S/P tonsillectomy S/P right oophorectomy Family History Mother No problems noted. Father Asthma Son Cancer prostate Granddaughter Cancer lung cancer Social History Smoking/Tobacco Use Status: Never Second Hand Exposure: Yes Smoking risk assessment performed?: Yes Alcohol Intake: never Drug use: Never Substance use type: does not use Pets and animals: Yes Pets and animals: cat(s) Sexually active: No Do you think of yourself as: straight/heterosexual Current gender identity: female How often do you talk on the phone with friends or family?: three or more times per week How often do you get together with friends or relatives?: decline to answer Do you belong to any clubs or organized social groups?: no Panel score (0-1 are the most socially isolated patients): 1 What type of physical activity do you participate in: none Catina/Samaritan: No preference Special catina needs: No Seatbelt use: always 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
--- NOTE | 2023-08-11 05:00 | DI.CT_ITS ---
Exam(s) CT ABDOMEN PELVIS W EXAM: CT ABDOMEN PELVIS W CLINICAL HISTORY: upper abdominal pain/back pain. TECHNIQUE: Imaging Protocol: Axial computed tomography images with coronal and sagittal reformatted images were created and reviewed CONTRAST MATERIAL: Intravenous: Omnipaque 350 Contrast volume:100 ml Oral: / no COMPARISON: CT CT ABDOMEN PELVIS WO from 07/13/2021 FINDINGS: ABDOMEN and PELVIS: Lung Bases: No acute findings. Liver: Normal density. No suspicious mass. Periportal edema. Gallbladder and biliary tract: Small stones seen layering in the dependent portion of the gallbladder . The gallbladder appears somewhat distended. No wall thickening or biliary dilatation. Small amou nt of fluid around the gallbladder. Pancreas: Normal density. Fluid seen around the pancreas no evidence of mass. Spleen: Normal. Kidneys: Normal size, contour and axis. No radiodense stones. No obstructive uropathy. No suspicious masses seen. Adrenal glands: No masses seen. Vasculature: Abdominal aorta non-dilated. Atherosclerotic changes. Soft tissues: Unremarkable. Bladder: No gross wall thickening. No calculi.No focal mass. Bowel: Mild thickening of the duodenum adjacent to the pancreas. No bowel obstruction. Diverticulos is. Appendix normal. Peritoneal cavity: No ascites. No focal collection. No mesenteric inflammatory response. Bones: Advanced degenerative changes in the spine and right hip. Reproductive organs: Unremarkable. Lymph nodes: No pathologically enlarged lymph nodes. IMPRESSION:: Pancreatitis with surrounding fluid. Gallbladder contains multiple small stones and is mildly distended. No visible common duct stone. RADIATION DOSE DELIVERED: 786.79mGy.cm Total DLP DATA REPOSITORY: All CT scans at this facility are submitted to the National Radiology Data Registry (NRDR) Dose Index Registry (DIR) with the [employer] (ACR). RADIATION OPTIMIZATION: All CT scans at this facility use at least one of these dose optimization te chniques: automated exposure control; mA and/or kV adjustment per patient size (includes targeted exa ms where dose is matched to clinical indication); or iterative reconstruction.
[2023-08-11 05:18] LABS: Abs Immature Grans 0.01 10^3/uL (0.0-0.06); Absolute Basophil Count 0.05 10^3/uL (0.0-0.2); Absolute Eosinophil Count 0.26 10^3/uL (0.0-0.7); Absolute Lymphocyte Count 3.11 10^3/uL (1.2-3.4); Absolute Monocyte Count 0.76 10^3/uL (0.1-0.8); Absolute Neutrophil Count 3.33 10^3/uL (1.2-6.7); Basophils % 0.7 %; Eosinophils % 3.5 %; HGB 14.3 g/dL (11.2-15.7); Immature Grans % 0.1 %; Lymphocytes % 41.4 %; MCH 32.6 pg (27.0-33.0); MCHC 33.3 % (32.0-36.0); MCV 98 fL (80-95); MPV 8.8 fL (8.0-11.0); Monocytes % 10.1 %; Neutrophils % 44.2 %; Platelet Count 239 10^3/uL (130-400); RBC 4.39 10^6/uL (3.93-5.22); RDW 12.9 % (11.7-14.6); RDW-SD 46.3 fL; WBC 7.52 10^3/uL (4.4-10.8)
[2023-08-11] MEDS: Lactated Ringers 1,000 ML 1000 ML IV (05:24)
[2023-08-11] MEDS: Ondansetron 4 MG/2 ML VIAL IVP ×3 (05:25→12:13)
[2023-08-11 05:40] LABS: ALT 52 U/L (14-59); AST 42 U/L (15-37); Albumin 3.8 g/dL (3.4-5.0); Alkaline Phosphatase 99 U/L (46-116); Anion Gap 9.7 mmol/L (3-11); BUN 21 mg/dL (7-18); Bilirubin, Total 0.78 mg/dL (0.2-1.0); CO2 27.3 mmol/L (21.0-32.0); CREATININE 0.8 mg/dL (0.55-1.02); Calcium 9.5 mg/dL (8.5-10.1); Chloride 108 mmol/L (98-107); Estimated GFR 75.84 (mL/min/1.73m2); Glucose 113 mg/dL (74-106); Potassium 4.1 mmol/L (3.5-5.1); Sodium 145 mmol/L (136-145); Total Protein 6.7 g/dL (6.4-8.2); Troponin I < 50 ng/L (< or =60)
[2023-08-11 05:50] LABS: Lipase > 375 U/L (16-77)
[2023-08-11] MEDS: Omnipaque 350 MG/ML 100 ML BTL IJ (05:55)
[2023-08-11] MEDS: Normal Saline - Diluent 50 ML VIAL IJ (05:56)
[2023-08-11] MEDS: Normal Saline Flush 10 ML SYR IVP ×2 (05:56→08:55)
--- NOTE | 2023-08-11 07:03 | DI.VRAD_ITS ---
PROCEDURE INFORMATION: Exam: CT Abdomen And Pelvis With Contrast Exam date and time: 08/11/2023 6:12 AM Age: 78 years old Clinical indication: Abdominal pain; Localized; Prior surgery; Surgery date: 6+ months; Surgery type: Appendectomy, tubal ligation, oophorectomy; Patient HX: Upper abd and back pain TECHNIQUE: Imaging protocol: Computed tomography of the abdomen and pelvis with contrast. Contrast material: OMNIPAQUE 350; Contrast volume: 100 ml; Contrast route: INTRAVENOUS (IV); COMPARISON: CT ABDOMEN PELVIS WO 07/13/2021 7:33 PM FINDINGS: Limitations: Images degraded due to artifact caused by patient motion and arm positioning. Liver: No focal hepatic lesion identified. Gallbladder and biliary ducts: Distended gallbladder. Cholelithiasis. Pericholecystic fluid. Biliary ductal dilatation. Pancreas: Peripancreatic edema consistent with pancreatitis. Spleen: No splenomegaly. Adrenal glands: Nodular adrenal thickening. Kidneys and ureters: No hydronephrosis or evidence for pyelonephritis. Stomach and bowel: Gastric thickening, likely reactive. No intestinal obstruction is evident. Fluid in nondilated small bowel, nonspecific. Colonic diverticula. Areas of apparent mural thickening in the colon commensurate with underdistention. Appendix: No evidence of appendicitis. Intraperitoneal space: No free air. Vasculature: Arterial calcifications. Lymph nodes: No acute findings. Urinary bladder: No acute findings. Reproductive: No acute findings. Bones/joints: No pertinent acute abnormality seen. Soft tissues: No pertinent acute abnormality seen. IMPRESSION: 1. Pancreatitis. 2. Cholelithiasis. Pericholecystic fluid may be secondary to pancreatitis but cannot exclude cholecystitis. Follow-up as clinically warranted. 3. Additional findings as above. Dictated and Authenticated by: Mary Haddad MD. Ordering:DANII Sears MD
--- NOTE | 2023-08-11 07:15 | DI.US_ITS ---
Exam(s) US ABDOMEN LIMITED EXAM: US ABDOMEN LIMITED CLINICAL HISTORY: eval for biliary dilatation TECHNIQUE: Ultrasound abdomen performed using standard protocol. COMPARISON: CT CT ABDOMEN PELVIS W from 08/11/2023 FINDINGS: Exam limited by patient's inability to breath hold. LIVER: Normal size and echogenicity. No focal liver lesions are seen. GALLBLADDER: Cholelithiasis . No evidence of wall thickening. No pericholecystic fluid identified. LIRA'S SIGN: Negative. BILIARY SYSTEM: No intrahepatic or extrahepatic biliary ductal dilation. Right kidney: Normal size. No evidence of renal calculi. No evidence of hydronephrosis. No renal mas s or cyst identified. PANCREAS: Normal where visualized. ABDOMINAL AORTA AND IVC: Visualized portions normal caliber. ASCITES: None seen. IMPRESSION: Cholelithiasis. No evidence of biliary dilatation. DATA REPOSITORY:
--- NOTE | 2023-08-11 07:17 | W.PM.HP.N ---
Date of service: 08/11/23 Time of Service: 07:18 Assessment and Plan Assessment and plan (1) Acute pancreatitis: Status: Acute Assessment and plan: Imaging and biochemistry certainly supports the diagnosis of acute pancreatitis here. Fortunately, her symptoms seem to be improving. I explained that there are various causes of pancreatitis, but given history and cholelithiasis observed on the ultrasound, I suspect that gallstone pancreatitis is the most likely diagnosis here. For now, we will continue with supportive treatment to ensure adequate hydration. I do not think she needs antibiotics at this point as she has a normal white blood cell count, no clinical features concerning for infectious sepsis. Will repeat the lipase tomorrow, and see how the exam evolves. I will keep her n.p.o. for tonight until her symptoms improve a little more and the nausea resolves. I recommended to Mignon that after her symptoms resolved, and her biochemistry normalizes, I would recommend cholecystectomy to reduce the likelihood of another episode of pancreatitis. I discussed the diagnosis and prognosis with her Riaz as well. I think both have a good understanding of what I am explaining. Riaz explained that neither he nor Mignon feel comfortable with undergoing cholecystectomy and [facility]. I explained that if that is their decision, then I would still encourage cholecystectomy at another surgical program as soon as possible. History of Present Illness History of Present Illness Chief Complaint: Chest pain Narrative: Mignon is 78 years old. She comes to the emergency department last night after the acute onset of lower chest and upper abdominal pain. She had been in her usual state of health, feeling herself all 3 yesterday. She had some beef for dinner, went to sleep at the usual time. She was awoken from sleep with sharp stabbing pain. She describes a similar nature to what she experienced during pancreatitis in 2021. She came to the emergency department. Biochemistry showed elevated lipase, and a CT scan confirmed acute pancreatitis. She had a mild elevation in her AST, but otherwise normal liver function tests. Intravenous fluids were started, she was given a dose of antibiotics. Since moving from the emergency department up to the regular floor, she has been feeling better. She still has some nausea with some dry heaving, but the pain has improved. Past medical history is most significant for gallstone pancreatitis. She did not have her gallbladder removed subsequently. She also has some gastritis or gastroesophageal reflux disease that is treated with famotidine. She is on lisinopril for hypertension. Past surgical history is most significant for may be a ovarian cystectomy, and tubal ligation. Previous records indicate an incidental appendectomy at that time as well. Review of Systems Constitutional Constitutional: Reports fatigue, Reports lethargy and Reports poor appetite Eyes Eyes: Reports system reviewed and no additional complaints, except as documented ENT Ears, Nose, Mouth, and Throat: Reports system reviewed and no additional complaints, except as documented Cardiovascular Cardiovascular: Reports chest pain and Denies dyspnea Respiratory Respiratory: Denies chest congestion, Denies cough and Denies dyspnea Gastrointestinal Gastrointestinal: Reports abdominal pain, Reports nausea and Reports vomiting Musculoskeletal Musculoskeletal: Reports system reviewed and no additional complaints, except as documented Neurologic Neurologic: Reports system reviewed and no additional complaints, except as documented Endocrine Endocrine: Reports fatigue Hematologic/Lymphatic Hematologic/Lymphatic: Denies easy bleeding and Denies easy bruising PFSH All Active Problems (Updated 08/11/23 @ 16:23 by Bijan Ascencio MD) Acute pancreatitis (Acute) Sebaceous cyst (Acute) Lipoma of scalp (Acute) Medical History (Updated 08/11/23 @ 16:23 by Bijan Ascencio MD) Acute cholecystitis GERD (gastroesophageal reflux disease) Cholelithiasis Pancreatitis HTN (hypertension) Hyperlipidemia Type 2 diabetes mellitus Keratolysis exfoliativa Osteoarthritis Stomach ulcer (05/04/17) Surgical History S/P tubal ligation S/P appendectomy S/P tonsillectomy S/P right oophorectomy Family History Mother No problems noted. Father Asthma Son Cancer prostate Granddaughter Cancer lung cancer Social History Smoking/Tobacco Use Status: Never Second Hand Exposure: Yes Smoking risk assessment performed?: Yes Alcohol Intake: never Drug use: Never Substance use type: does not use Housing: other Pets and animals: Yes Pets and animals: cat(s) Sexually active: No Do you think of yourself as: straight/heterosexual Current gender identity: female How often do you talk on the phone with friends or family?: three or more times per week How often do you get together with friends or relatives?: decline to answer Do you belong to any clubs or organized social groups?: no Panel score (0-1 are the most socially isolated patients): 1 What type of physical activity do you participate in: none Catina/Restorationist: No preference Special catina needs: No Seatbelt use: always Drive intox or ride w/intox route delivery driver: No Do you feel safe at home: Yes Do you feel safe in your relationship?: Yes Meds Allergies and Home Medications Allergies Allergy/AdvReac Type Severity Reaction Status Date / Time house dust Allergy Mild Itching Unverified 08/11/23 05:16 weed pollen Allergy Mild Unknown Unverified 08/11/23 05:16 aspirin AdvReac Intermediate Nausea Unverified 08/11/23 05:16 tomato AdvReac Mild Skin Rash Verified 08/11/23 05:16 chocolate flavor AdvReac Unknown Verified 08/11/23 05:16 Latex, Natural Rubber AdvReac white Verified 08/11/23 05:16 bumps on hands hay AdvReac Mild Other (See Uncoded 08/11/23 05:16 Comment) soap AdvReac Mild Itching Uncoded 08/11/23 05:16 Home Medications Medication Instructions Recorded Confirmed Type acetaminophen 650 mg 2 tab PO BID 05/04/17 08/11/23 History tablet,extended release (Arthritis Pain Relief (acetaminophen) ER) psyllium husk 3.4 gram/5.4 gram 1 tbsp PO DAILY 09/23/20 08/11/23 History oral powder (Metamucil) famotidine 20 mg tablet 20 mg PO QHS #180 tabs 09/04/21 08/11/23 Rx albuterol sulfate 90 mcg/actuation 2 puff inhalation Q6H PRN 01/28/22 08/11/23 Rx aerosol inhaler shortness of breath or wheezing #6.7 grams atorvastatin 40 mg tablet 40 mg PO QPM #90 tabs 09/07/22 08/11/23 Rx lisinopril 10 mg tablet 10 mg PO DAILY #90 tabs 09/07/22 08/11/23 Rx Exam Const General: cooperative, comfortable and no acute distress Orientation: alert and oriented x3 HENMT Head: normal to inspection Eyes General: appearance normal, both eyes and all related structures Resp Effort & Inspection: normal respiratory effort and no cough Auscultation: clear to auscultation bilaterally Cardio Rate: regular rate Rhythm: regular rhythm GI Inspection: normal to inspection and non-distended Palpation: soft, guarding and tender Percussion: normal to percussion Auscultation: normal bowel sounds Results Labs 08/11/23 05:00 08/11/23 05:00 Labs: Laboratory Results - last 24 hr 08/11/23 05:00 WBC 7.52 RBC 4.39 Hgb 14.3 Hct 43.0 MCV 98 H MCH 32.6 MCHC 33.3 RDW 12.9 Plt Count 239 MPV 8.8 Immature Gran % 0.1 Neutrophils % 44.2 Lymphocytes % 41.4 Monocytes % 10.1 Eosinophils % 3.5 Basophils % 0.7 Nucleated RBC % 0.0 Absolute Neutrophils 3.33 Absolute Lymphocytes 3.11 Absolute Monocytes 0.76 Absolute Eosinophils 0.26 Absolute Basophils 0.05 Sodium 145 Potassium 4.1 Chloride 108 H Carbon Dioxide 27.3 Anion Gap 9.7 BUN 21 H Creatinine 0.8 Est GFR (CKD-EPI 2020) 75.84 Glucose 113 H Calcium 9.5 Total Bilirubin 0.78 AST 42 H ALT 52 Alkaline Phosphatase 99 Troponin I < 50 Total Protein 6.7 Albumin 3.8 Lipase > 375 H Last Vital Signs Temp 97.3 F L 08/11/23 04:53 Pulse 52 L 08/11/23 06:32 Resp 14 08/11/23 06:40 BP 166/68 H 08/11/23 06:32 Pulse Ox 97 08/11/23 06:40 Time Spent Time spent with Patient: 55-74 minutes Time was spent: preparing to see the patient(eg.review tests), obtaining and/or reviewing separately otained hiistory, ordering medications,tests, procedures, indepentently interpreting results and counseling the patient
[2023-08-11] MEDS: Prochlorperazine 10 MG/2 ML VIAL 5 MG IVP (07:20)
[2023-08-11] MEDS: ACETAMINOPHEN 1,000 MG/100 ML BTL 400 MG IVPB (07:26)
[2023-08-11] MEDS: metroNIDAZOLE 500 MG/100 ML BAG 100 MG IVPB (07:33)
[2023-08-11] MEDS: cefTRIAXone 1 GM/50 ML BAG IVPB (07:33)
[2023-08-11] MEDS: Lactated Ringers 1,000 ML 125 ML IV (08:44)
[2023-08-11] MEDS: Lisinopril 10 MG TAB PO (10:11)
[2023-08-11] MEDS: Lactated Ringers 1,000 ML 75 ML IV ×2 (10:15→19:59)
[2023-08-11] MEDS: HYDROmorphone 2 MG/ML SYR 0.5 MG IVP (11:17)
--- NOTE | 2023-08-11 12:52 | PHA.REVIEW2 ---
Pharmacy Admission Review Admission Clinical Review Admission Pharmacy Review: Acute pancreatitis (Acute) Acute cholecystitis (Acute) house dust Allergy (Mild, Unverified 08/11/23 05:16) Itching weed pollen Allergy (Mild, Unverified 08/11/23 05:16) Unknown aspirin Adverse Reaction (Intermediate, Unverified 08/11/23 05:16) Nausea tomato Adverse Reaction (Mild, Verified 08/11/23 05:16) Skin Rash chocolate flavor Adverse Reaction (Verified 08/11/23 05:16) Unknown Latex, Natural Rubber Adverse Reaction (Verified 08/11/23 05:16) white bumps on hands hay Adverse Reaction (Mild, Uncoded 08/11/23 05:16) Other (See Comment) soap Adverse Reaction (Mild, Uncoded 08/11/23 05:16) Itching Resuscitation Status DNR/DNI Height 5 ft 2 in Weight 58.967 kg Pharmacy Admission Review Renal Dosing Renal Dosing: BUN Cancelled 08/11/23 09:22 Creatinine Cancelled 08/11/23 09:22 Medications needing adjustments: Intervened (CrCl 43.86 mL/min) List of meds needing interventions: Decreased famotidine from 20mg daily to 10mg daily due to CrCl < 60 Anticoagulation Anticoagulation: Hgb 14.3 g/dL (11.2-15.7) 08/11/23 05:00 Hct 43.0 % (36.0-46.0) 08/11/23 05:00 Plt Count 239 10^3/uL (130-400) 08/11/23 05:00 Creatinine Cancelled 08/11/23 09:22 DVT Prophylaxis: Reviewed Medications: Heparin (q12h) Opiate Usage Evaluate Pain Scale/Pains Meds: Reviewed (PRN hydromorphone - 1 dose given so far ) Scheduled Bowel Reg ordered if on Opiates?: No Relevant Labs Relevant Labs: Sodium Cancelled 08/11/23 09:22 Potassium Cancelled 08/11/23 09:22 Chloride Cancelled 08/11/23 09:22 Electrolytes, C-Reactive P, ESR: Reviewed (glucose 113, AST 42) Cardiac Review Cardiac Review: Troponin I < 50 ng/L (< or =60) 08/11/23 05:00 Blood Pressure 152/71 1209 Blood Pressure 148/63 1107 Blood Pressure 128/63 0846 Blood Pressure 128/63 0840 Blood Pressure 176/78 0701 Blood Pressure 166/68 0632 Blood Pressure 164/84 0620 Blood Pressure 172/71 0546 Blood Pressure 180/76 0531 Blood Pressure 183/98 0457 Blood Pressure 183/98 0453 BP, HR, EF%: Reviewed (BP 152/71 and HR 53) QTc Review QTc: Reviewed (406 from 08/11/23) IV to PO Switch IV Medications: Reviewed (hydromorphone, ketorolac and ondansetron) Home Meds Home Med List reviewed: Reviewed Current Meds Current Medication Order Review: Reviewed Pharmacy Antibiotic Review Comments: Patient received 1 dose of ceftriaxone and metronidazole in ED, no orders put in for continuation yet
[2023-08-11] MEDS: Acetaminophen 500 MG TAB 1000 MG PO ×2 (14:16→21:15)
[2023-08-11] MEDS: Atorvastatin 40 MG TAB PO (21:15)
[2023-08-12 04:15] VITALS: BP 132/74; PULSE 74; RESP 18; TEMP 36.7; O2SAT 95
[2023-08-12] MEDS: Acetaminophen 500 MG TAB 1000 MG PO ×2 (07:36→20:15)
[2023-08-12] MEDS: Lisinopril 10 MG TAB PO (07:36)
[2023-08-12] MEDS: Normal Saline Flush 10 ML SYR IVP (07:37)
[2023-08-12 07:43] VITALS: BP 116/52; PULSE 54; RESP 16; TEMP 37.1; O2SAT 98
--- NOTE | 2023-08-12 07:59 | W.PM.PROGNOT ---
Date of Service Date of service: 08/12/23 Time of Service: 07:59 Assessment and Plan Assessment and plan (1) Acute pancreatitis: Status: Acute Assessment and plan: Mignon is very nervous about proceeding with lab draw. We discussed options of what we could do to help her relax and allow for the draw. Discussed the benefits having labs would provide as well. Mignon is agreeable to proceeding with a lab draw. NPO IV fluids Activity as tolerated She received a single dose of antibiotics in the ER. Will reattempt lab draw. Then will determine if okay to start clear liquids and possible d/c home. Subjective Subjective Interval history since last seen: Arrived with Mignon resting comfortably in bed. She states that she does not have any pain this morning and is very hungry. She states she declined letting the lab draw her blood this morning because she is terrified of needles. Exam Const General: cooperative, healthy appearing and comfortable Orientation: alert and oriented x3 Resp Effort & Inspection: normal respiratory effort, no audible wheezes and no cough GI Inspection: normal to inspection Palpation: soft, no guarding and tender Objective Last Vital Signs Temp 37.1 C 08/12/23 07:43 Pulse 54 L 08/12/23 07:43 Resp 16 08/12/23 07:43 BP 116/52 L 08/12/23 07:43 Pulse Ox 98 08/12/23 07:43 Laboratory Results - last 24 hr 08/11/23 09:22 Sodium Cancelled Potassium Cancelled Chloride Cancelled Carbon Dioxide Cancelled Anion Gap Cancelled BUN Cancelled Creatinine Cancelled Est GFR (CKD-EPI 2020) Cancelled Glucose Cancelled Calcium Cancelled Lipase Cancelled Time Spent with Patient Time Spent with Patient: <25 minutes Time was spent: preparing to see the patient(eg.review tests), obtaining and/or reviewing separately otained hiistory and counseling the patient
--- NOTE | 2023-08-12 08:36 | PDOC.CMIN ---
Date of service: 08/12/23 Time of Service: 08:36 Care Management Initial Assmt Initial Assessment Reason for Hospitalization: Acute Pancreatitis Functional Status/Living Situation Patient Presentation: Mignon was awake and lying in bed when CM met with her. She appears anxious and talks a bit about not being able to get a scan today because she is hyper and extremely claustrophobic. She is waiting to meet with the surgeon to discuss next steps. She says she is feeling better and no longer vomiting. Town of Residence: [place] Resides with: Spouse (Riaz) Significant Other/Family: Local (Good relationship with her Granddaughters and grandchildren. Pt has 3 adult children that she is not close with.) Natural Supports: Employment Status: Retired Instrumental Activities of Daily Living (ADLs): Independent Activities/Hobbies/SocialSupport: Loves yard sales and unscrambling words on her phone. Medications Medication Management: No Issues/Barriers identified Physical Functioning/Mobility Assistive Device: None Advance Directives Advance Directives: Do you have an Advance Directive: Y 07/17/21 15:39 AD On File at [facility]: Y 07/17/21 15:39 Date Asked 07/11/21 07/17/21 15:39 AD Date Reviewed 08/11/23 08/11/23 07:16 COLST On File at [facility] Yes 07/17/21 15:39 COLST Date Scanned 07/19/21 08/11/23 07:16 Code Status Resuscitation Status DNR/DNI Portal Pt does not currently have a portal and education provided: Yes Insurance Coverage/Financial Issues Insurance: [employer] A[employer] Member: No Financial Issues: None identified Care Team Visit Care Team Role Provider Type Zaina Todd NP Primary Care Provider NURSE PRACTITIONER Orion Galdamez MD Emergency Provider [facility] STAFF PHYSICIAN Bijan Ascencio MD Admit Provider [facility] STAFF PHYSICIAN Attending Provider Discharge Potential Discharge Needs: Imaging/labs (Needs urgent MRCP) Patient/Family Education Needs: Review discharge instructions, discuss Ask Me Three Transportation: Private vehicle (Riaz) Plan: Mignon requires additional imaging and medical work up for cholecystitis. Anticipate, pt will discharge home via private vehicle with when medically ready. New services will be ordered on discharge if needed. CM will follow. PFSH All Active Problems (Updated 08/11/23 @ 16:23 by Bijan Ascencio MD) Acute pancreatitis (Acute) Sebaceous cyst (Acute) Lipoma of scalp (Acute) Medical History (Updated 08/11/23 @ 16:23 by Bijan Ascencio MD) Acute cholecystitis GERD (gastroesophageal reflux disease) Cholelithiasis Pancreatitis HTN (hypertension) Hyperlipidemia Type 2 diabetes mellitus Keratolysis exfoliativa Osteoarthritis Stomach ulcer (05/04/17) Surgical History S/P tubal ligation S/P appendectomy S/P tonsillectomy S/P right oophorectomy Family History Mother No problems noted. Father Asthma Son Cancer prostate Granddaughter Cancer lung cancer Social History Smoking/Tobacco Use Status: Never Second Hand Exposure: Yes Smoking risk assessment performed?: Yes Alcohol Intake: never Drug use: Never Substance use type: does not use Housing: other Pets and animals: Yes Pets and animals: cat(s) Sexually active: No Do you think of yourself as: straight/heterosexual Current gender identity: female How often do you talk on the phone with friends or family?: three or more times per week How often do you get together with friends or relatives?: decline to answer Do you belong to any clubs or organized social groups?: no Panel score (0-1 are the most socially isolated patients): 1 What type of physical activity do you participate in: none Catina/Anabaptism: No preference Special catina needs: No Seatbelt use: always Drive intox or ride w/intox corrugated fastener driver: No Do you feel safe at home: Yes Do you feel safe in your relationship?: Yes SDOH(Care Management) Screening Will the Patient Participate in the Screening?: Yes Do you worry about having a steady place to live?: no Problems where you live: no known problems In the past 12 months, have you had to go without electric, gas, oil or water in your home?: no Have you or anyone in your house had to go without enough food to eat?: no Has lack of transportation kept you from medical appointments or from doing things needed for daily living?: no Has anyone in your support network made you feel unsafe for any reason?: no
[2023-08-12] MEDS: Lactated Ringers 1,000 ML 75 ML IV (09:46)
[2023-08-12 10:20] LABS: Abs Immature Grans 0.03 10^3/uL (0.0-0.06); Absolute Basophil Count 0.03 10^3/uL (0.0-0.2); Absolute Eosinophil Count 0.12 10^3/uL (0.0-0.7); Absolute Lymphocyte Count 1.57 10^3/uL (1.2-3.4); Absolute Monocyte Count 0.56 10^3/uL (0.1-0.8); Basophils % 0.4 %; Eosinophils % 1.6 %; HCT 37.9 % (36.0-46.0); HGB 12.8 g/dL (11.2-15.7); Immature Grans % 0.4 %; Lymphocytes % 20.9 %; MCH 32.9 pg (27.0-33.0); MCHC 33.8 % (32.0-36.0); MCV 97 fL (80-95); MPV 8.9 fL (8.0-11.0); Monocytes % 7.5 %; Neutrophils % 69.2 %; Platelet Count 198 10^3/uL (130-400); RBC 3.89 10^6/uL (3.93-5.22); RDW 13.2 % (11.7-14.6); RDW-SD 46.7 fL; WBC 7.51 10^3/uL (4.4-10.8)
[2023-08-12 10:39] LABS: ALT 147 U/L (14-59); AST 94 U/L (15-37); Alkaline Phosphatase 69 U/L (46-116); Anion Gap 6.2 mmol/L (3-11); BUN 12 mg/dL (7-18); Bilirubin, Direct 0.3 mg/dL (0.0-0.2); Bilirubin, Total 1.42 mg/dL (0.2-1.0); CO2 29.8 mmol/L (21.0-32.0); CREATININE 0.8 mg/dL (0.55-1.02); Calcium 8.8 mg/dL (8.5-10.1); Chloride 108 mmol/L (98-107); Estimated GFR 75.84 (mL/min/1.73m2); Glucose 88 mg/dL (74-106); Lipase > 375 U/L (16-77); Sodium 144 mmol/L (136-145); Total Protein 5.5 g/dL (6.4-8.2)
--- NOTE | 2023-08-12 14:18 | CHAPLAIN ---
Mignon was resting in bed when I visited. Her Riaz was with her. I explained my role and offered support. Riaz asked for a Coke, so I got that for him.
[2023-08-12] MEDS: Famotidine 20 MG TAB 10 MG PO (14:45)
[2023-08-12 15:25] VITALS: BP 132/71; PULSE 57; RESP 16; TEMP 37.1; O2SAT 97
[2023-08-12] MEDS: Atorvastatin 40 MG TAB PO (20:15)
[2023-08-12 23:50] VITALS: BP 120/51; PULSE 51; RESP 18; TEMP 37; O2SAT 97
[2023-08-13] MEDS: Acetaminophen 500 MG TAB 1000 MG PO (05:41)
[2023-08-13 07:15] LABS: Abs Immature Grans 0.01 10^3/uL (0.0-0.06); Absolute Basophil Count 0.04 10^3/uL (0.0-0.2); Absolute Eosinophil Count 0.18 10^3/uL (0.0-0.7); Absolute Lymphocyte Count 1.66 10^3/uL (1.2-3.4); Absolute Neutrophil Count 3.37 10^3/uL (1.2-6.7); Basophils % 0.7 %; Eosinophils % 3.1 %; HGB 13.1 g/dL (11.2-15.7); Immature Grans % 0.2 %; Lymphocytes % 28.8 %; MCH 32.5 pg (27.0-33.0); MCHC 33.6 % (32.0-36.0); MCV 97 fL (80-95); Monocytes % 8.7 %; Neutrophils % 58.5 %; Platelet Count 193 10^3/uL (130-400); RBC 4.03 10^6/uL (3.93-5.22); RDW-SD 46.4 fL; WBC 5.76 10^3/uL (4.4-10.8)
[2023-08-13 07:31] LABS: ALT 114 U/L (14-59); AST 63 U/L (15-37); Albumin 3.1 g/dL (3.4-5.0); Alkaline Phosphatase 68 U/L (46-116); Bilirubin, Direct 0.3 mg/dL (0.0-0.2); Bilirubin, Total 1.53 mg/dL (0.2-1.0); C-Reactive Protein 3.64 mg/dL (<or=0.5); Lipase 202 U/L (16-77); Total Protein 5.8 g/dL (6.4-8.2)
[2023-08-13 07:41] VITALS: BP 145/68; PULSE 51; RESP 18; TEMP 36.4; O2SAT 98
[2023-08-13] MEDS: Lisinopril 10 MG TAB PO (07:54)
--- NOTE | 2023-08-13 08:29 | PGE_ITS ---
Date of Service Date of service: 08/13/23 Time of Service: 08:29 Assessment and Plan Assessment and plan (1) Acute pancreatitis: Status: Acute Assessment and plan: Mignon is feeling better today. Pain is well controlled. Awaiting breakfast Lipase is decreased to 202 today Encouraged activity OOB as tolerated. Possible d/c home later today. Emphasized to Mignon the importance of visiting another general surgery clinic to discuss/proceed with cholecystectomy. Subjective Subjective Interval history since last seen: Arrive with July resting comfortably. She describes abdominal soreness but otherwise feeling okay. She denies any nausea or vomiting. She expresses she is very hungry. Exam Const General: cooperative, healthy appearing and comfortable Orientation: alert and oriented x3 Resp Effort & Inspection: normal respiratory effort, no audible wheezes and no cough GI Inspection: normal to inspection and non-distended Palpation: soft, not firm and tender periumbilically Objective Last Vital Signs Temp 36.4 C L 08/13/23 07:41 Pulse 51 L 08/13/23 07:41 Resp 18 08/13/23 07:41 BP 145/68 H 08/13/23 07:41 Pulse Ox 98 08/13/23 07:41 Laboratory Results - last 24 hr 08/12/23 08/12/23 08/12/23 07:40 08:39 09:40 WBC Cancelled 7.51 RBC Cancelled 3.89 L Hgb Cancelled 12.8 Hct Cancelled 37.9 MCV Cancelled 97 H MCH Cancelled 32.9 MCHC Cancelled 33.8 RDW Cancelled 13.2 Plt Count Cancelled 198 MPV Cancelled 8.9 Immature Gran % Cancelled 0.4 Neutrophils % Cancelled 69.2 Band Neutrophils % Cancelled Lymphocytes % Cancelled 20.9 Atypical Lymphs % Cancelled Monocytes % Cancelled 7.5 Eosinophils % Cancelled 1.6 Basophils % Cancelled 0.4 Metamyelocytes % Cancelled Myelocytes % Cancelled Promyelocytes % Cancelled Other Cells % Cancelled Nucleated RBC % Cancelled 0.0 Absolute Neutrophils Cancelled 5.20 Absolute Lymphocytes Cancelled 1.57 Absolute Monocytes Cancelled 0.56 Absolute Eosinophils Cancelled 0.12 Absolute Basophils Cancelled 0.03 RBC Morphology Cancelled Polychromasia Cancelled Hypochromasia Cancelled Poikilocytosis Cancelled Basophilic Stippling Cancelled Anisocytosis Cancelled Microcytosis Cancelled Macrocytosis Cancelled Spherocytes Cancelled Tear Drop Cells Cancelled Ovalocytes Cancelled Stomatocytes Cancelled [place] Bodies Cancelled Ethan Cells/Echinocytes Cancelled Acanthocytes (Spur) Cancelled Schistocytes Cancelled Sodium 144 Potassium 4.0 Chloride 108 H Carbon Dioxide 29.8 Anion Gap 6.2 BUN 12 Creatinine 0.8 Est GFR (CKD-EPI 2020) 75.84 Glucose 88 Calcium 8.8 Total Bilirubin Cancelled Cancelled 1.42 H Conjugated Bilirubin Cancelled Cancelled 0.3 H AST Cancelled Cancelled 94 H ALT Cancelled Cancelled 147 H Alkaline Phosphatase Cancelled Cancelled 69 C-Reactive Protein Total Protein Cancelled Cancelled 5.5 L Albumin Cancelled Cancelled 3.0 L Lipase > 375 H 08/13/23 06:50 WBC 5.76 RBC 4.03 Hgb 13.1 Hct 39.0 MCV 97 H MCH 32.5 MCHC 33.6 RDW 13.0 Plt Count 193 MPV 9.0 Immature Gran % 0.2 Neutrophils % 58.5 Band Neutrophils % Lymphocytes % 28.8 Atypical Lymphs % Monocytes % 8.7 Eosinophils % 3.1 Basophils % 0.7 Metamyelocytes % Myelocytes % Promyelocytes % Other Cells % Nucleated RBC % 0.0 Absolute Neutrophils 3.37 Absolute Lymphocytes 1.66 Absolute Monocytes 0.50 Absolute Eosinophils 0.18 Absolute Basophils 0.04 RBC Morphology Polychromasia Hypochromasia Poikilocytosis Basophilic Stippling Anisocytosis Microcytosis Macrocytosis Spherocytes Tear Drop Cells Ovalocytes Stomatocytes [place] Bodies Ethan Cells/Echinocytes Acanthocytes (Spur) Schistocytes Sodium Potassium Chloride Carbon Dioxide Anion Gap BUN Creatinine Est GFR (CKD-EPI 2020) Glucose Calcium Total Bilirubin 1.53 H Conjugated Bilirubin 0.3 H AST 63 H ALT 114 H Alkaline Phosphatase 68 C-Reactive Protein 3.64 H Total Protein 5.8 L Albumin 3.1 L Lipase 202 H Time Spent with Patient Time Spent with Patient: <25 minutes Time was spent: preparing to see the patient(eg.review tests), obtaining and/or reviewing separately otained hiistory and counseling the patient
--- NOTE | 2023-08-13 09:47 | PDOC.CMPRO ---
Date of service: 08/13/23 Time of Service: 09:48 Care Management Progress Note Progress Note Text Progress Note Text: Mignon was lying in bed visiting with her Partner when CM met with her. Mignon plans to follow up with [facility] General Surgery at a later time, as an outpatient and verbalizes that it is her preference to have her Gallbladder out at [facility] and is not interested in having surgery at [facility]. Mignon is eager to discharge home. No new services are anticipated. Discharge Potential Discharge Needs: PCP F/U Appt and Surgical F/U Appt ([facility] General Surgery) Anticipated Barriers to Discharge: None Identified Patient/Family Education Needs: Review discharge instructions, discuss Ask Me Three Transportation: Private vehicle ([place]) Plan: Discharge home via private vehicle with partner. Pt will follow up with community providers and her discharge plan of care as instructed. Referral to Gen Surgery at [facility] and follow up with PCP are recommended. No new services are anticipated at this time. CM will follow. SDOH(Care Management) Screening Will the Patient Participate in the Screening?: Yes Do you worry about having a steady place to live?: no Problems where you live: no known problems In the past 12 months, have you had to go without electric, gas, oil or water in your home?: no Have you or anyone in your house had to go without enough food to eat?: no Has lack of transportation kept you from medical appointments or from doing things needed for daily living?: no Has anyone in your support network made you feel unsafe for any reason?: no
[2023-08-13] MEDS: Famotidine 20 MG TAB 10 MG PO (12:27)
[2023-08-13 15:19] VITALS: BP 130/55; PULSE 53; RESP 15; TEMP 36.3; O2SAT 94
--- NOTE | 2023-08-13 16:01 | PDOC.DSDIS_ITS ---
Date of service: 08/13/23 Time of Service: 16:01 Discharge Plan Disposition Patient Disposition: Home Condition: Fair Condition: Improving Discharge Details Reason For Visit: Pancreatitis Admit Date/Time: 08/11/23 07:23 Admit Provider: Bijan Ascencio Attending Provider: Bijan Ascencio [facility] Hospital Course: Mignon is 78 years old. She comes to the emergency department after acute onset of lower chest and upper abdominal pain. Biochemistry and CT scan were consistent with pancreatitis. She also has cholelithiasis, which seems like the most likely explanation. 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 She was admitted to the hospital, and gently resuscitated. She had a transient increase in her liver function test, but by hospital day #3, lipase was normalizing, and her symptoms completely resolved. She was able to tolerate a low-fat diet, and although cholecystectomy was recommended, the patient preferred to follow-up as an outpatient with a different hospital for elective cholecystectomy. Home Meds and New Rx's Prescriptions: No Action famotidine 20 mg tablet 20 mg PO QHS Qty: 180 4RF Metamucil 3.4 gram/5.4 gram powder 1 tbsp PO DAILY Rx Instructions: mix into at least 8 oz of water or juice before administering albuterol sulfate 90 mcg/actuation HFA aerosol inhaler 2 puff inhalation Q6H PRN (Reason: shortness of breath or wheezing) Qty: 6.7 0RF Rx Instructions: 2 puffs every 6 hours as needed for cough, sob, or wheeze lisinopril 10 mg tablet 10 mg PO DAILY Qty: 90 4RF atorvastatin 40 mg tablet 40 mg PO QPM Qty: 90 4RF acetaminophen [Arthritis Pain Relief (acetam)] 650 MG tablet 2 tab PO BID DS: Diagnosis Discharge Diagnosis (1) Acute pancreatitis: Status: Acute Asessment and Plan: Secondary to gallstone pancreatitis; cholecystectomy was recommended, and patient prefers to follow-up with [facility]
--- NOTE | 2023-08-13 16:07 | W.PM.DS.N ---
Date of service: 08/13/23 Time of Service: 16:07 DS: Diagnosis Discharge Diagnosis (1) Acute pancreatitis: Status: Acute Asessment and Plan: Pancreatitis is resolved, recommend cholecystectomy as definitive treatment Discharge Plan Disposition Patient Disposition: Home Condition: Improving Discharge Details Reason For Visit: Pancreatitis Admit Date/Time: 08/11/23 07:23 Admit Provider: Bijan Ascencio Attending Provider: Bijan Ascencio Primary Care Provider: Zaina Todd Hospital Course Hospital Course: Mignon is 78 years old. She comes to the emergency department after acute onset of lower chest and upper abdominal pain. Biochemistry and CT scan were consistent with pancreatitis. She also has cholelithiasis, which seems like the most likely explanation. 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 She was admitted to the hospital, and gently resuscitated. She had a transient increase in her liver function test, but by hospital day #3, lipase was normalizing, and her symptoms completely resolved. She was able to tolerate a low-fat diet, and although cholecystectomy was recommended, the patient preferred to follow-up as an outpatient with a different hospital for elective cholecystectomy. Home Meds and New Rx's Prescriptions: Continued famotidine 20 mg tablet 20 mg PO QHS Qty: 180 4RF Metamucil 3.4 gram/5.4 gram powder 1 tbsp PO DAILY Rx Instructions: mix into at least 8 oz of water or juice before administering albuterol sulfate 90 mcg/actuation HFA aerosol inhaler 2 puff inhalation Q6H PRN (Reason: shortness of breath or wheezing) Qty: 6.7 0RF Rx Instructions: 2 puffs every 6 hours as needed for cough, sob, or wheeze lisinopril 10 mg tablet 10 mg PO DAILY Qty: 90 4RF atorvastatin 40 mg tablet 40 mg PO QPM Qty: 90 4RF acetaminophen [Arthritis Pain Relief (acetam)] 650 MG tablet 2 tab PO BID Discharge Instructions Instructions: Acute pancreatitis, Pancreatitis (DC), Choosing surgery to treat gallstones, Low-fat diet Additional Instructions: July, it was very nice meeting you in the hospital, and I am glad you have made a quick recovery from your pancreatitis. The cause of your pancreatitis is almost certainly passage of gallstones from your gallbladder into the ducts that connect the gallbladder to your gastrointestinal tract. These passed through the pancreas, and when the stone gets lodged in the duct, it often times causes inflammation of the pancreas. As you already know, pancreatitis is extremely painful, and is also quite dangerous. Strongly recommend that you have your gallbladder removed. As we talked about while you are in the hospital, we are more than happy to help you with surgical removal of your gallbladder, but I respect your desire to seek care elsewhere. I did go ahead and place a referral in to [facility] through the general surgery department as you requested. However, I would encourage you to explore other options in an effort to have surgery as soon as possible. I would hate for you to have another episode of pancreatitis related to your gallstones. Activity:: Activity as Tolerated Equipment/Supplies:: No Equipment Needed Diet:: Low-fat DS: Summary Time Spent with Patient providing and/or coordinating discharge services: Less than 30 minutes Status at Discharge Functional status at discharge: independent ambulation Overall status at discharge: patient is back to baseline Mental Status: mental status grossly normal Speech and Movement: speech and movement normal Mood: congruent mood Affect: normal affect Quality:SDOH Health Related Social Needs: No Data to Display Exam GI Other: Abdomen is soft and nondistended. She is nontender. Psych Mental Status: mental status grossly normal Speech and Movement: speech and movement normal Mood: congruent mood Affect: normal affect DS: Data Vitals/I&O Vitals and I&O: Vital Signs Temperature 97.3 F L 08/13/23 15:19 Temperature Source Temporal Artery Scan 08/13/23 15:19 Pulse 53 L 08/13/23 15:19 Pulse Rhythm Regular 08/13/23 09:46 Pulse 49 L 08/11/23 07:40 Respiratory Rate 15 08/13/23 15:19 Respiratory Effort Normal, Non-Labored 08/13/23 09:46 Respiratory Depth Normal 08/13/23 09:46 Respiratory Pattern Normal 08/13/23 09:46 Blood Pressure 130/55 L 08/13/23 15:19 Blood Pressure Mean 115 08/11/23 07:01 Blood Pressure Position Sitting 08/11/23 04:53 Pulse Oximetry 94 08/13/23 15:19 Oxygen Delivery Method Room Air 08/13/23 15:19 Oxygen Flow Rate 0 08/13/23 15:19 Pain Level 0 08/13/23 15:19 Intake & Output 06/08/13/23 08/13/23 23:59 11:59 23:59 Intake Total 617 / 1617 617 / 617 Balance 617 / 1617 617 / 617 Intake: IV 617 / 1617 617 / 617 Other: Urine Appearance Clear Clear Comment PER PATIENT SHE HAS BEEN UP VOIDING Pt independent w/ toileting Voiding Methods Toilet Data Completed and Pending Labs on day of discharge: Labs from last 24 hours 08/13/23 06:50 WBC 5.76 RBC 4.03 Hgb 13.1 Hct 39.0 MCV 97 H MCH 32.5 MCHC 33.6 RDW 13.0 Plt Count 193 MPV 9.0 Immature Gran % 0.2 Neutrophils % 58.5 Lymphocytes % 28.8 Monocytes % 8.7 Eosinophils % 3.1 Basophils % 0.7 Nucleated RBC % 0.0 Absolute Neutrophils 3.37 Absolute Lymphocytes 1.66 Absolute Monocytes 0.50 Absolute Eosinophils 0.18 Absolute Basophils 0.04 Total Bilirubin 1.53 H Conjugated Bilirubin 0.3 H AST 63 H ALT 114 H Alkaline Phosphatase 68 C-Reactive Protein 3.64 H Total Protein 5.8 L Albumin 3.1 L Lipase 202 H PFSH All Active Problems Acute pancreatitis (Acute) Sebaceous cyst (Acute) Lipoma of scalp (Acute) Medical History Acute cholecystitis GERD (gastroesophageal reflux disease) Cholelithiasis Pancreatitis HTN (hypertension) Hyperlipidemia Type 2 diabetes mellitus Keratolysis exfoliativa Osteoarthritis Stomach ulcer (05/04/17) Surgical History S/P tubal ligation S/P appendectomy S/P tonsillectomy S/P right oophorectomy Family History Mother No problems noted. Father Asthma Son Cancer prostate Granddaughter Cancer lung cancer Social History Smoking/Tobacco Use Status: Never Second Hand Exposure: Yes Smoking risk assessment performed?: Yes Alcohol Intake: never Drug use: Never Substance use type: does not use Housing: other Pets and animals: Yes Pets and animals: cat(s) Sexually active: No Do you think of yourself as: straight/heterosexual Current gender identity: female How often do you talk on the phone with friends or family?: three or more times per week How often do you get together with friends or relatives?: decline to answer Do you belong to any clubs or organized social groups?: no Panel score (0-1 are the most socially isolated patients): 1 What type of physical activity do you participate in: none Catina/Yazdanism: No preference Special catina needs: No Seatbelt use: always Drive intox or ride w/intox 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
== END 2023-08-13 16:36 | disposition home or self-care (01) ==
LOC: ER 07:38 → MS 08:39
PROVIDERS: Surgery; Admitting Provider Surgery; Emergency Provider Emergency Medicine; PCP Nurse Practitioner Family; Visit Provider Surgery
DX: K85.10 Biliary acute pancreatitis without necrosis or infection (principal); K80.20 Calculus of gallbladder without cholecystitis without obstruction; I10 Essential (primary) hypertension; K21.9 Gastro-esophageal reflux disease without esophagitis; K29.70 Gastritis, unspecified, without bleeding; E78.5 Hyperlipidemia, unspecified; E00.9 Congenital iodine-deficiency syndrome, unspecified; Z87.11 Personal history of peptic ulcer disease
CPT/HCPCS: 36415; 80048; 80053; 80076; 83690; 93005; 96361; 96365; 96366; 96367; 96375; 96376; 99222; 99231; 99238; 99285; 74177; 76705; 84484; 85025; 86140; 93010; G0378; J0131; J0696; J0780; J1170; J1836; J2405; J3490

== ENCOUNTER → 2023-10-05 08:25 | Outpatient (BNVA) | payer OTHER, SELFPAY | PROVIDERS: PCP Nurse Practitioner Family; Referring Provider Nurse Practitioner Family; Visit Provider Surgery | DX: K82.9 Disease of gallbladder, unspecified (principal) | CPT/HCPCS: 99214 ==

== ENCOUNTER 2023-10-27 12:10 | Observation (INO) | payer OTHER, SELFPAY ==
--- NOTE | 2023-10-26 18:23 | W.PM.DSUDISC ---
Date of service: 10/27/23 Time of Service: 08:51 Discharge Plan Disposition Patient Disposition: Home Condition: Good Discharge Details Reason For Visit: cholecystectomy Attending Provider: Bijan Ascencio Primary Care Provider: Zaina Todd Home Meds and New Rx's Prescriptions: New tramadol 25 mg tablet 25 mg PO Q8H PRNQty: 9 0RF Continued Metamucil 3.4 gram/5.4 gram powder 1 tbsp PO DAILY Rx Instructions: mix into at least 8 oz of water or juice before administering lisinopril 10 mg tablet 10 mg PO DAILY Qty: 90 4RF atorvastatin 40 mg tablet 40 mg PO QPM Qty: 90 4RF [id number] 750-625-30 mg tablet 1 tab PO DAILY Rx Instructions: give after food/meal famotidine 20 mg tablet 20 mg PO QHS PRN acetaminophen [Tylenol Extra Strength] 500 mg tablet 500 mg PO Q6H PRN acetaminophen [Arthritis Pain Relief (acetam)] 650 MG tablet 2 tab PO BID Discharge Instructions Instructions: Cholecystectomy, Laparoscopic Surgery Additional Instructions: 1. Resume all of your regular medications. 2. Alternate cold packs and heating pads as needed for discomfort over the incisions. 3. Use [id number] Tylenol every 6 hours for the first 2 days, then switch to as needed. Use the prescription for tramadol if you find the pain uncontrolled with Tylenol 4. Leave bandages in place for 24 hours, then remove. 5. Shower with warm soapy water. Pat dry. Use a bandaid if needed to protect your clothing. 6. No soaking or tub baths until I see you in the office. 7. No heavy lifting until I see you in the office. 8. Call the office (or go directly to the emergency room after hours) if you notice any of the following: Develop chills (warm to touch), or if you have a thermometer and your temperature is above 101 Difficulty breathing or difficultly swallowing Persistent vomiting Any bleeding ? exceeding one tablespoon 9. Call your physician if the site where your intravenous was started becomes red, swollen, painful, and warm to touch. Referrals: Bijan Ascencio MD [ [facility] STAFF PHYSICIAN] - Activity:: Activity as Tolerated Remove Dressings/Wound Care:: 24 hours Shower/Bathe:: 24 hours Diet:: As Tolerated Discharge Orders Discharge Orders: Discharge Order (Routine); Ordered 10/26/23 Ordered By: Bijan Ascencio DS: Diagnosis Discharge Diagnosis (1) Gallstone pancreatitis: Status: Acute Asessment and Plan: Status post laparoscopic cholecystectomy; outpatient postoperative follow-up
--- NOTE | 2023-10-26 18:30 | W.PM.OP ---
Date of service: 10/27/23 Time of Service: 08:54 Operative Note Operative Note DATE OF PROCEDURE: 10/27/23 PRE-OP DIAGNOSIS: symptomatic cholelithiasis POST-OP DIAGNOSIS: same PROCEDURE: Laparoscopic cholecystectomy SURGEON: Bijan Ascencio [employer]FT MAINTENANCE TECHNICIAN: Romi Amin ANESTHESIA TYPE: General LMA/ETT Refer to Anesthesia Record ESTIMATED BLOOD LOSS: 25 PATHOLOGY: other (Gallbladder) COMPLICATIONS: None Patient was transported to: PACU Patient's condition: stable Indications: Mignon is a 78-year-old woman who has had recurrent gallstone pancreatitis. I recommended cholecystectomy to reduce likelihood of that happening again. Procedure Description: After satisfactory induction of general anesthesia, I prepped and draped the abdomen in usual fashion. Next, I began with a periumbilical incision. I dissected down to the fascia and elevated it with Kranthi clamps. I incised it sharply. Next, I passed a 12 mm operating port in the umbilical site. I secured it to the fascia with 0 Vicryl stitches. I then insufflated the peritoneal cavity. Next I inserted a 5 mm 30 degree scope and examined the underlying viscera. There was no evidence of injury created upon entry. There was some adhesions to the anterior abdominal wall, mostly in the midline. I was able to get a port into the right hemiabdomen, and moved the camera to that location. I then used the LigaSure device to divide the adhesions on the anterior abdominal wall and free up the umbilical port. I then placed the patient in some reverse Trendelenburg and left side down positioning. Then, with the assistance of the laparoscope, I used local anesthetic to anesthetize the midepigastric and 1 other right upper quadrant port sites. Under the vision of the laparoscope, I passed 3 more 5 mm ports. I then grasped the gallbladder fundus and elevated cephalad. I began by dissecting the gallbladder infundibulum. I worked in a lateral to medial fashion with the assistance of indocyanine green. Once I skeletonized the cystic duct and cystic artery, with a satisfactory critical view of safety, I doubly clipped and divided them. I then used electrocautery to dissect the gallbladder off the gallbladder fossa. I passed the gallbladder into an Endo Catch bag and removed it by way of the umbilical site. I examined the surgical field. It was hemostatic. I then removed the 5 mm ports under the vision of the laparoscope. Finally, I removed the umbilical port site and closed the fascia with Vicryl stitches. Sites were irrigated, and the skin was closed with subcuticular stitches. Bandages were applied, patient was awakened from anesthesia, and transferred to the recovery unit.
[2023-10-27] VITALS (26 sets, daily range): BP systolic 120–188; BP diastolic 59–84; PULSE 46–62; RESP 13–19; TEMP 35.7–36.9; O2SAT 97–100; BMI 21.7
[2023-10-27] MEDS: Acetaminophen 500 MG TAB 1000 MG PO (06:35)
[2023-10-27] MEDS: Gabapentin 300 MG CAP PO (06:36)
--- NOTE | 2023-10-27 06:41 | ANES.PREOP_ITS ---
General Info Date of Service Date Performed: 10/27/23 Height: 5 ft 2 in Weight: 54 kg Body Mass Index (BMI): 21.7 Surgical Procedure: Operation Date: 10/27/23 07:40 Proposed Procedure Side Surgeon p Cholecystectomy Laparoscopic Bijan Ascencio MD Meds Allergies and Home Medications Allergies Allergy/AdvReac Type Severity Reaction Status Date / Time house dust Allergy Mild Itching Verified 10/27/23 06:17 weed pollen Allergy Mild Unknown Verified 10/27/23 06:17 aspirin AdvReac Intermediate Nausea Verified 10/27/23 06:17 tomato AdvReac Mild Skin Rash Verified 10/27/23 06:17 chocolate flavor AdvReac Unknown Verified 10/27/23 06:17 Latex, Natural Rubber AdvReac white Verified 10/27/23 06:17 bumps on hands hay AdvReac Mild Other (See Uncoded 10/27/23 06:17 Comment) soap AdvReac Mild Itching Uncoded 10/27/23 06:17 Home Medication ?Medication ?Instructions ?Recorded acetaminophen 650 mg 2 tab PO BID 05/04/17 tablet,extended release (Arthritis Pain Relief (acetaminophen) ER) psyllium husk 3.4 gram/5.4 gram 1 tbsp PO DAILY 09/23/20 oral powder (Metamucil) atorvastatin 40 mg tablet 40 mg PO QPM #90 tabs 08/23/23 lisinopril 10 mg tablet 10 mg PO DAILY #90 tabs 08/23/23 glucosamine 750 jl-yreoxpepuk-gog 1 tab PO DAILY 09/16/23 no.1 625 mg-C 30 wn-kdhg-kiie tablet acetaminophen 500 mg tablet 500 mg PO Q6H PRN 10/05/23 (Tylenol Extra Strength) famotidine 20 mg tablet 20 mg PO QHS PRN 10/05/23 Current Visit Medications: Current Medications Generic Name Dose Route Start Last Admin Trade Name Freq PRN Reason Stop Dose Admin Acetaminophen 1,000 mg 10/27/23 06:00 10/27/23 06:35 Acetaminophen 500 Mg Tab PO 10/27/23 23:59 1,000 mg PREOP KEITH Administration Gabapentin 300 mg 10/27/23 06:00 10/27/23 06:36 Gabapentin 300 Mg Cap PO 10/27/23 23:59 300 mg PREOP KEITH Administration Hydromorphone HCl 0.2 mg 10/26/23 18:32 Hydromorphone 2 Mg/Ml Syr IVP 11/25/23 18:31 Q1H PRN PRN Ringer's Solution 1,000 mls @ 80 mls/hr 10/27/23 06:00 IV 10/27/23 23:59 INFUSION KEITH IV Miscellaneous Supplies 1 each 10/27/23 06:00 Iv Access IV 10/27/23 23:59 DIRECTED KEITH Indocyanine Green 5 mg 10/27/23 06:00 Indocyanine Green 25 Mg Vial IVP 10/27/23 23:59 PREOP KEITH Sodium Chloride 0 ml 10/27/23 06:00 Normal Saline Flush 10 Ml Syr IV 10/27/23 23:59 PRN PRN Sodium Chloride 0 ml 10/27/23 06:00 Normal Saline 10 Ml Vial IJ 10/27/23 23:59 DIRECTED PRN Sterile Water 0 ml 10/27/23 06:00 Water,Injection,Sterile 10 Ml Vial IJ 10/27/23 23:59 DIRECTED PRN PFSH Active Problems Active Problems: Problem Status Onset Code Gallstone pancreatitis Acute K85.10 Sebaceous cyst Acute L72.3 Lipoma of scalp Acute D17.0 Medical History Medical History Arthritis Acute cholecystitis GERD (gastroesophageal reflux disease) Cholelithiasis Pancreatitis HTN (hypertension) Hyperlipidemia Type 2 diabetes mellitus Keratolysis exfoliativa Osteoarthritis Stomach ulcer (05/04/17) Surgical History Surgical History S/P tubal ligation S/P appendectomy S/P tonsillectomy S/P right oophorectomy Tobacco Smoking/Tobacco Use Status: Never Passive smoking exposure: Yes Second hand exposure: Yes Alcohol Alcohol Intake: never Substance Use Substance use: Never Substance use type: does not use Vital Signs and Lab Results Vital Signs Most Recent Vital Signs in EMR: Most Recent Vital Signs Temp Pulse Resp BP Pulse Ox 36.4 C L 61 18 153/60 H 98 10/27/23 06:18 10/27/23 06:18 10/27/23 06:18 10/27/23 06:18 10/27/23 06:18 Lab Results Blood Type / Crossmatch: No Data to Display Complete Blood Count: No Data to Display Complete Metabolic Panel: No Data to Display Liver Function Panel: No Data to Display Coagulation Panel: No Data to Display Cardiac Panel: No Data to Display Arterial Blood Gas: No Data to Display Venous Blood Gas: No Data to Display Pancreas Panel: No Data to Display Thyroid Panel: No Data to Display Infectious Disease: No Data to Display Blood Cultures: No Data to Display Toxicology Panel: No Data to Display Imaging and Studies Imaging and Studies Study information below may be from another EMR and interpreted by another provider. Please see original notes in EMR for more complete details. EKG Summary: 08/11/23 Sinus bradycardia...rate< 60 Normal [place] Anesthesia Assessment and Plan Anesthesia History Personal History: No History of Anesthesia Complications Family History: No Family History of Anesthesia Complications Exercise Tolerance Exercise Tolerance: Metabolic Equivalents>4 Pertinent Negatives Pertinent Negatives: No Symptoms of GERD, No Major Cardiovascular Symptoms or Complaints, No Major Pulmonary Symptoms or Complaints and No History of CVA/TIA Cardiac & Pulmonary Exam Cardiac Exam: Normal S1/S2 Heart Sounds Pulmonary Exam: Clear Bilateral Breath Sounds and No cough or Cold Implantable Cardiac Device Does patient have a Pacemaker or an ICD?: No Airway Exam Known Difficult Airway: No Mallampati Class: 2 Mouth Opening: Normal (> 3cm) Thyromental Distance: Greater than 3 cm Neck Range of Motion: Full ROM Neck Circumference: Normal Teeth Condition: Generalized Poor Dentition and Advised tooth loss possible given current condition (indicate tooth) (tooth 41 loose visible decay) ASA Classification ASA Score: ASA 3 Emergency Case?: No NPO Status NPO Status: NPO Clears >2 hours, Solids >8 hours Anesthesia Plan Resuscitation Status: Full Code Anesthesia Technique: General Anesthesia Airway Planned: Endotracheal Tube Monitors Used: Standard Monitors and SedLine
[2023-10-27] MEDS: Lactated Ringers 1,000 ML 80 ML IV (06:55)
[2023-10-27] MEDS: Indocyanine green 25 MG VIAL 5 MG IVP (06:57)
[2023-10-27] MEDS: ceFAZolin 2 GM/50 ML BAG 100 GM (07:42)
--- NOTE | 2023-10-27 08:15 | GB_PTH ---
PATIENT: BenjaminMignon C LOC: U#:[id number] AGE/SX: 78/F ROOM: 229 RE10/27/[address]: Bijan Ascencio MD : 1945 BED: A DIS: 10/28/2023 SPEC #: [id number] RECD: 10/27/23 12:43 STATUS: ARMAND REQ #: [id number] MELECIO: 10/27/23 08:[address]: Bijan Ascencio DEPT: Surgical Specimen RECD BY: Muriel Abreu ENTERED: 10/27/23 12:44 SP TYPE: GB OTHR DR: Zaina Todd, DHAVAL Tissues: 1 - GALLBLADDER Procedures: GROSS AND MICRO LEVEL 3 Comments: [id number]
[2023-10-27] MEDS: Bupivacaine 0.25% Pres-Free W/EPI 30 ML VIAL (08:35)
[2023-10-27] MEDS: Famotidine 20 MG/2 ML VIAL IVP (10:30)
[2023-10-27] MEDS: Droperidol 5 MG/2 ML VIAL 0.625 MG IVP (10:36)
--- NOTE | 2023-10-27 11:49 | W.ANESPOSTOP ---
Postoperative Evaluation Date, Time and Location Date Performed: 10/27/23 Time Performed: 11:49 Patient Location: Day Surgery Unit Vital Signs Most Recent Imported Vital Signs: Most Recent Vital Signs Temp Pulse Resp BP Pulse Ox 36.0 C L 53 L 16 148/75 H 100 10/27/23 11:24 10/27/23 11:24 10/27/23 11:24 10/27/23 11:24 10/27/23 11:24 Pain Score Most Recent Pain Score: Most Recent Pain Score Pain Level 0 10/27/23 09:41 Assessment Mental Status: Arousable with meaningful communication Airway and Respiratory Function: Patent airway with normal (patient baseline) respiratory exam Cardiovascular Function: Hemodynamically Stable Hydration Status: Adequately Hydrated Nausea & Vomiting: No Nausea or Vomiting Pain: Pt. Denies Any Pain Peripheral Nerve Block: Patient did not receive a nerve block Postoperative Comments:: Reports still feeling dizzy, giving her more time. We did discuss that if symptoms dont resolve, or if she feels uncomfortable proceeding home we can always discuss admission.
--- NOTE | 2023-10-27 12:58 | W.PC.ACHO ---
Registration Status: Primary Language: Preferred Language: Medical / Surgical History (Last Reviewed 10/27/23 @ 06:32 by Nanette Sandhu, APRYL) Arthritis Acute cholecystitis GERD (gastroesophageal reflux disease) Cholelithiasis Pancreatitis HTN (hypertension) Hyperlipidemia Type 2 diabetes mellitus Keratolysis exfoliativa Osteoarthritis Stomach ulcer (05/04/17) (Last Reviewed 10/27/23 @ 06:32 by Nanette Sandhu RN) S/P tubal ligation S/P appendectomy S/P tonsillectomy S/P right oophorectomy Most Recent Vital Signs Temperature 36.0 C L 10/27/23 12:21 Temperature Source Skin 10/27/23 12:21 Pulse 52 L 10/27/23 12:21 Pulse Rhythm Regular 10/27/23 06:18 Pulse 51 L 10/27/23 09:36 Respiratory Rate 16 10/27/23 12:21 Respiratory Depth Deep 10/27/23 06:18 Blood Pressure 150/65 H 10/27/23 12:21 Blood Pressure Mean 93 10/27/23 12:21 Blood Pressure Position Sitting 10/27/23 12:21 Pulse Oximetry 98 10/27/23 12:21 Respiratory End-tidal CO2 39 10/27/23 09:31 Oxygen Delivery Method Room Air 10/27/23 12:21 Oxygen Flow Rate 0 10/27/23 12:21 Pain Level 0 10/27/23 09:41 Allergies house dust Allergy (Mild, Verified 10/27/23 06:17) Itching weed pollen Allergy (Mild, Verified 10/27/23 06:17) Unknown aspirin Adverse Reaction (Intermediate, Verified 10/27/23 06:17) Nausea tomato Adverse Reaction (Mild, Verified 10/27/23 06:17) Skin Rash chocolate flavor Adverse Reaction (Verified 10/27/23 06:17) Unknown Latex, Natural Rubber Adverse Reaction (Verified 10/27/23 06:17) white bumps on hands hay Adverse Reaction (Mild, Uncoded 10/27/23 06:17) Other (See Comment) hay fever soap Adverse Reaction (Mild, Uncoded 10/27/23 06:17) Itching IV IV Catheter Type [Left Forearm Peripheral IV ] IV Catheter Gauge [Left 22 Forearm] Diet Orders Category Date Time Status Regular/Normal [DIET] Nutrition 10/27/23 Lunch Active Intake and Output - 24 Hour Total 10/05/23 10:02 thru 10/27/23 09:37 Intake Total 750 Balance 750 Weight 54 kg Intake: IV 750 Other: Emesis Description None v v v v v v v v v Sending and/or Receiving Nurses: Please use comment section below to note any information pertinent to the patient hand-off not included above. Information / Comments: Pt arrives awake and oriented to unit via stretcher. brought to room 229 Report received from: FOURTH MATE
[2023-10-27] MEDS: Atorvastatin 40 MG TAB PO (21:15)
[2023-10-27] MEDS: Normal Saline Flush 10 ML SYR IVP (21:15)
[2023-10-28 04:06] VITALS: BP 112/72; PULSE 68; RESP 18; TEMP 36.9; O2SAT 97
[2023-10-28 07:30] VITALS: BP 119/55; PULSE 60; RESP 16; TEMP 36.4; O2SAT 98
[2023-10-28] MEDS: Normal Saline Flush 10 ML SYR IVP (08:15)
[2023-10-28] MEDS: Psyllium PKT 1 EACH PO (08:15)
[2023-10-28] MEDS: Lisinopril 10 MG TAB PO (08:15)
[2023-10-28] MEDS: Glucosamine/Chondroitin CAP 1 CAP PO (08:15)
[2023-10-28 09:12] VITALS: RESP 16; O2SAT 98
--- NOTE | 2023-10-28 09:57 | NUR.NOTE ---
Pt refused am Heparin, junior technical writer educated patient on the importance of DVT prevention post op. pt verbalized understanding and states she is dealthy afraid of needles and did not want one at this time. AP RN Nursing Note:
--- NOTE | 2023-10-28 10:16 | W.PM.DS.N ---
Date of service: 10/28/23 Time of Service: 10:16 DS: Diagnosis Discharge Diagnosis (1) Gallstone pancreatitis: Status: Acute Discharge Plan Disposition Patient Disposition: Home Condition: Good Discharge Details Reason For Visit: Symptomatic cholelithiasis Admit Date/Time: 10/27/23 12:10 Admit Provider: Bijan Ascencio Attending Provider: Bijan Ascencio Primary Care Provider: Perez,[facility] Hospital Course Hospital Course: Pleasant 78-year-old female patient postop day #1 status post laparoscopic cholecystectomy. Clinically the patient is doing well. She is tolerating regular diet without nausea or vomiting. She is passing gas. No bowel movements. She denies any chest pain, shortness of breath. Her pain is well-controlled oral pain medication. The patient meets criteria for discharge today. Home Meds and New Rx's Prescriptions: New tramadol 25 mg tablet 25 mg PO Q8H PRNQty: 9 0RF Continued Metamucil 3.4 gram/5.4 gram powder 1 tbsp PO DAILY Rx Instructions: mix into at least 8 oz of water or juice before administering lisinopril 10 mg tablet 10 mg PO DAILY Qty: 90 4RF atorvastatin 40 mg tablet 40 mg PO QPM Qty: 90 4RF rjaxjjkf-rmrs-peu9-C-baron-bosw 750-625-30 mg tablet 1 tab PO DAILY Rx Instructions: give after food/meal famotidine 20 mg tablet 20 mg PO QHS PRN acetaminophen [Tylenol Extra Strength] 500 mg tablet 500 mg PO Q6H PRN acetaminophen [Arthritis Pain Relief (acetam)] 650 MG tablet 2 tab PO BID Discharge Instructions Instructions: Cholecystectomy, Laparoscopic Surgery Additional Instructions: 1. Resume all of your regular medications. 2. Alternate cold packs and heating pads as needed for discomfort over the incisions. 3. Use vivl-jyo-ieixhsn Tylenol every 6 hours for the first 2 days, then switch to as needed. Use the prescription for tramadol if you find the pain uncontrolled with Tylenol 4. Leave bandages in place for 24 hours, then remove. 5. Shower with warm soapy water. Pat dry. Use a bandaid if needed to protect your clothing. 6. No soaking or tub baths until I see you in the office. 7. No heavy lifting until I see you in the office. 8. Call the office (or go directly to the emergency room after hours) if you notice any of the following: Develop chills (warm to touch), or if you have a thermometer and your temperature is above 101 Difficulty breathing or difficultly swallowing Persistent vomiting Any bleeding ? exceeding one tablespoon 9. Call your physician if the site where your intravenous was started becomes red, swollen, painful, and warm to touch. Stand Alone Forms: Anesthesia Discharge Inst., Chris Norman ([facility]) Referrals: Bijan Ascencio MD [ [facility] STAFF PHYSICIAN] - Activity:: Activity as Tolerated Remove Dressings/Wound Care:: 24 hours Shower/Bathe:: 24 hours Activity:: Activity as Tolerated Equipment/Supplies:: No Equipment Needed Diet:: As Tolerated DS: Summary Summary Time spent discussing smoking cessation with patient: 3 to 10 minutes Time Spent with Patient providing and/or coordinating discharge services: Less than 30 minutes Status at Discharge Functional status at discharge: independent ambulation Overall status at discharge: patient is back to baseline Mental Status: mental status grossly normal Speech and Movement: speech and movement normal Mood: congruent mood Affect: normal affect Quality:SDOH Health Related Social Needs: No Data to Display Exam Const General: cooperative, healthy appearing and comfortable Orientation: alert, awake and oriented x3 Eyes General: appearance normal, both eyes and all related structures Periorbital: periorbital findings normal Sclera: sclerae normal Chest Chest: normal inspection of the chest Resp Effort & Inspection: normal respiratory effort and able to speak in complete sentences Auscultation: clear to auscultation bilaterally Cardio Jugular venous pressure: no JVD Rate: regular rate Rhythm: regular rhythm GI Inspection: normal to inspection Other: Incisions are clean dry intact. Active bowel sounds present. Skin General skin exam: no rashes or lesions noted Lesions: no lesions Wounds: no wounds Extrem General: normal to inspection, full ROM and clubbing, cyanosis or edema noted Psych Mental Status: mental status grossly normal Speech and Movement: speech and movement normal Mood: congruent mood Affect: normal affect DS: Data Vitals/I&O Vitals and I&O: Vital Signs Temperature 97.5 F L 10/28/23 09:12 Temperature Source Tympanic 10/28/23 09:12 Pulse 60 10/28/23 09:12 Pulse Rhythm Regular 10/27/23 12:59 Pulse 51 L 10/27/23 09:36 Respiratory Rate 16 10/28/23 09:12 Respiratory Effort Normal 10/27/23 12:59 Respiratory Depth Normal 10/27/23 12:59 Respiratory Pattern Normal 10/27/23 12:59 Blood Pressure 119/55 L 10/28/23 09:12 Blood Pressure Mean 93 10/27/23 12:21 Blood Pressure Position Sitting 10/27/23 12:21 Pulse Oximetry 98 10/28/23 09:12 Respiratory End-tidal CO2 39 10/27/23 09:31 Oxygen Delivery Method Room Air 10/28/23 09:12 Oxygen Flow Rate 0 10/28/23 09:12 Pain Level 0 10/28/23 09:12 Intake & Output 10/27/23 10/27/23 10/28/23 11:59 23:59 11:59 Intake Total 750 / 1000 250 / 1000 Output Total 400 / 400 400 / 400 Balance 750 / 600 -150 / 600 -400 / -400 Weight 54 kg Intake: IV 750 / 1000 250 / 1000 Output: Urine 400 / 400 400 / 400 Other: Urine Color Yellow Pale Urine Appearance Clear Clear Urine Odor None Comment pT walked to the bathroom and voided. Emesis Description None Voiding Methods Toilet Toilet PFSH All Active Problems Gallstone pancreatitis (Acute) Sebaceous cyst (Acute) Lipoma of scalp (Acute) Medical History Arthritis Acute cholecystitis GERD (gastroesophageal reflux disease) Cholelithiasis Pancreatitis HTN (hypertension) Hyperlipidemia Type 2 diabetes mellitus Keratolysis exfoliativa Osteoarthritis Stomach ulcer (05/04/17) Surgical History S/P tubal ligation S/P appendectomy S/P tonsillectomy S/P right oophorectomy Family History Mother No problems noted. Father Asthma Son Cancer prostate Granddaughter Cancer lung cancer Social History (Updated 09/22/23 @ 14:06 by Claribel Corley) Smoking/Tobacco Use Status: Never Second Hand Exposure: Yes Smoking risk assessment performed?: Yes Alcohol Intake: never Drug use: Never Substance use type: does not use Adopted: No Caregiver/Support person: No Household members: spouse Housing: house Number of Children: 0 number of grandchildren: 0 Communication Needs: None Education Level: high school Details: 10th Grade Do you need help understanding health information?: Rarely Pets and animals: Yes Pets and animals: cat(s) Sexually active: No Do you think of yourself as: straight/heterosexual Current gender identity: female What is your relationship status?: living with partner How often do you talk on the phone with friends or family?: three or more times per week How often do you get together with friends or relatives?: once per week How often do you attend judaism or congregation services?: decline to answer Do you belong to any clubs or organized social groups?: no Panel score (0-1 are the most socially isolated patients): 2 What type of physical activity do you participate in: none Catina/Presybeterian: No preference Special catina needs: No Seatbelt use: always Drive intox or ride w/intox seasonal delivery driver: No Firearms in home: No Do you feel safe at home: Yes Do you feel safe in your relationship?: Yes Time Spent with Patient Time Spent with Patient: <45 minutes Time was spent: preparing to see the patient(eg.review tests), obtaining and/or reviewing separately otained hiistory, referring, communicating with other health team primary care physician, indepentently interpreting results, counseling the patient and care coordination
--- NOTE | 2023-10-28 10:59 | PDOC.CMIN ---
Date of service: 10/28/23 Time of Service: 10:59 Care Management Initial Assmt Advance Directives Advance Directives: Do you have an Advance Directive: Y 07/17/21 15:39 AD On File at [facility]: Y 07/17/21 15:39 Date Asked 07/11/21 07/17/21 15:39 AD Date Reviewed 10/27/23 10/13/23 08:21 COLST On File at [facility] Yes 07/17/21 15:39 COLST Date Scanned 07/19/21 08/11/23 07:16 Code Status Resuscitation Status Full Code Care Team Visit Care Team Role Provider Type Zaina Todd NP Primary Care Provider NURSE PRACTITIONER Bijan Ascencio MD Admit Provider [facility] STAFF PHYSICIAN Attending Provider [facility] All Active Problems Gallstone pancreatitis (Acute) Sebaceous cyst (Acute) Lipoma of scalp (Acute) Medical History Arthritis Acute cholecystitis GERD (gastroesophageal reflux disease) Cholelithiasis Pancreatitis HTN (hypertension) Hyperlipidemia Type 2 diabetes mellitus Keratolysis exfoliativa Osteoarthritis Stomach ulcer (05/04/17) Surgical History S/P tubal ligation S/P appendectomy S/P tonsillectomy S/P right oophorectomy Family History Mother No problems noted. Father Asthma Son Cancer prostate Granddaughter Cancer lung cancer Social History (Updated 09/22/23 @ 14:06 by Claribel Corley) Smoking/Tobacco Use Status: Never Second Hand Exposure: Yes Smoking risk assessment performed?: Yes Alcohol Intake: never Drug use: Never Substance use type: does not use Adopted: No Caregiver/Support person: No Household members: spouse Housing: house Number of Children: 0 number of grandchildren: 0 Communication Needs: None Education Level: high school Details: 10th Grade Do you need help understanding health information?: Rarely Pets and animals: Yes Pets and animals: cat(s) Sexually active: No Do you think of yourself as: straight/heterosexual Current gender identity: female What is your relationship status?: living with partner How often do you talk on the phone with friends or family?: three or more times per week How often do you get together with friends or relatives?: once per week How often do you attend quaker or jehovah's witness services?: decline to answer Do you belong to any clubs or organized social groups?: no Panel score (0-1 are the most socially isolated patients): 2 What type of physical activity do you participate in: none Catina/Sabianist: No preference Special catina needs: No Seatbelt use: always Drive intox or ride w/intox 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 driver: No Firearms in home: No Do you feel safe at home: Yes Do you feel safe in your relationship?: Yes SDOH(Care Management) Screening Will the Patient Participate in the Screening?: Yes Do you worry about having a steady place to live?: no Problems where you live: no known problems In the past 12 months, have you had to go without electric, gas, oil or water in your home?: no Have you or anyone in your house had to go without enough food to eat?: no Has lack of transportation kept you from medical appointments or from doing things needed for daily living?: no Has anyone in your support network made you feel unsafe for any reason?: no
--- NOTE | 2023-10-28 11:04 | PDOC.CMPRO ---
Date of service: 10/28/23 Time of Service: 11:04 Care Management Progress Note Progress Note Text Progress Note Text: Mignon was admitted on 10/27/23 for an elective chelecystectomy. The surgery went well and Mignon was able to tolerate a regular diet with no nausea or vomiting and her pain was controlled with oral medication. She was discharged home this morning with no new services. Discharge Potential Discharge Needs: Surgical F/U Appt Anticipated Barriers to Discharge: None Identified Patient/Family Education Needs: Review discharge instructions, discuss Ask Me Three Transportation: Private vehicle Plan: Mignon will be discharged home with no new services. She will follow up with her surgeon, PCP and plan of care and transport with family. SDOH(Care Management) Screening Will the Patient Participate in the Screening?: Yes Do you worry about having a steady place to live?: no Problems where you live: no known problems In the past 12 months, have you had to go without electric, gas, oil or water in your home?: no Have you or anyone in your house had to go without enough food to eat?: no Has lack of transportation kept you from medical appointments or from doing things needed for daily living?: no Has anyone in your support network made you feel unsafe for any reason?: no
== END 2023-10-28 12:14 | disposition home or self-care (01) ==
LOC: SUR 12:53 → MS 12:53
PROVIDERS: Admitting Provider Surgery; PCP Nurse Practitioner Family; Visit Provider Surgery
PROC: 0FT44ZZ Resection of Gallbladder, Percutaneous Endoscopic Approach (ICD-10-PCS; CPT 47562; principal; 2023-10-27 07:30)
DX: K80.20 Calculus of gallbladder without cholecystitis without obstruction (principal); K21.9 Gastro-esophageal reflux disease without esophagitis; I10 Essential (primary) hypertension; E78.5 Hyperlipidemia, unspecified; E11.9 Type 2 diabetes mellitus without complications; Z79.899 Other long term (current) drug therapy; K85.10 Biliary acute pancreatitis without necrosis or infection
CPT/HCPCS: 47562; 00123; 88304; G0378; J0690; J1100; J1790; J2001; J2405; J2704; J3010

== ENCOUNTER → 2023-11-09 10:12 | Outpatient (BNVA) | payer OTHER, SELFPAY | PROVIDERS: PCP Nurse Practitioner Family; Referring Provider Nurse Practitioner Family; Visit Provider Surgery | DX: Z48.815 Encounter for surgical aftercare following surgery on the digestive system (principal) ==